=== PATIENT | female | born 2000 | race Two or more races ===

== ENCOUNTER 2024-04-10 15:17 | Observation (INO) | payer MEDICAID, SELFPAY ==
[2024-04-10 15:20] VITALS: BP 168/77; PULSE 82; RESP 16; RESP 98; TEMP 36.8; BMI 54.1
[2024-04-10 15:24] VITALS: BP 175/79; PULSE 85
[2024-04-10 15:39] VITALS: BP 175/79; PULSE 85
[2024-04-10] MEDS: NIFEdipine 10 MG CAPSULE PO (15:39)
[2024-04-10 15:58] LABS: Collection Type, Urine Clean Catch
[2024-04-10 16:01] LABS: Basophils % (Auto) 0 % (0-2.5); Eosinophils # (Auto) 0.1 Thou/mm3 (0.0-0.5); Eosinophils % (Auto) 1 % (0-10); Hematocrit 31.7 % (36.0-46.0); Hemoglobin 10.3 g/dL (12.0-16.0); Immature Granulocytes % (Auto) 1 % (0-0); Immature Granulocytes Auto 0.07 Thou/mm3 (0.00-0.00); Lymphocytes % (Auto) 20 % (10-50); Mean Corpuscular HGB Conc 32.5 g/dl (31.0-37.0); Mean Corpuscular Hemoglobin 26.4 pg (25.0-35.0); Mean Corpuscular Volume 81 fL (80-100); Monocytes # (Auto) 0.7 Thou/mm3 (0.0-0.8); Monocytes % (Auto) 7 % (0-12); Neutrophils # (Auto) 7.1 Thou/mm3 (1.8-7.7); Neutrophils % (Auto) 71 % (37-80); Nucleated Red Blood Cell % 0 /100 WBC (0); Platelet Count 251 Thou/mm3 (140-440); RDW Standard Deviation 43.8 fL (36.4-46.3); White Blood Count 9.9 Thou/mm3 (3.6-11.0)
[2024-04-10 16:03] LABS: Bilirubin,Urine Negative (Negative); Blood,Urine Negative (Negative); Clarity,Urine Clear (Clear/Hazy); Color,Urine Lt-Yellow (Lt Yel-Yel); Glucose, Urine Negative (Negative); Ketones,Urine Negative (Negative); Leukocyte Esterase,Urine Negative (Negative); Nitrite,Urine Negative (Negative); PH,Urine 6.5 (5.0-7.0); Protein,Urine Negative (Neg - Trace); RBC,Urine < 1 /hpf (0-3); Specific Gravity,Urine 1.008 (1.001-1.035); Squamous Epithelial Cell,Urine 1 /hpf (0-5); Urobilinogen,Urine Negative mg/dL (0.0-1.0); WBC,Urine 1 /hpf (0-5)
[2024-04-10 16:08] VITALS: BP 146/89; PULSE 107
[2024-04-10 16:21] LABS: Partial Thromboplastin Time 31.3 Seconds (22.0-36.0); Prothrombin Time 10.9 Seconds (9.0-12.2)
[2024-04-10 16:25] LABS: Fibrinogen 689 mg/dL (175-375)
[2024-04-10 16:32] LABS: Alanine Aminotransferase 11 U/L (10-49); Albumin, Serum 3.9 gm/dL (3.5-5.0); Albumin/Globulin Ratio 1.4 (1.2-2.2); Alkaline Phosphatase 128 U/L (46-116); Anion Gap 8 (7-16); Aspartate Amino Transferase < 10 U/L (0-34); BUN/Creatinine Ratio 10 Ratio (12-20); Bilirubin,Total 0.2 mg/dL (0.3-1.2); Blood Urea Nitrogen 7 mg/dL (9-23); Calcium 9.1 mg/dL (8.3-10.6); Calcium (Corrected) 9.2 mg/dL (8.5-10.1); Carbon Dioxide 22.3 mMol/L (20.0-31.0); Chloride 107 mMol/L (98-107); Creatinine (Component) 0.7 mg/dL (0.6-1.3); Estimated Creatinine Clearance 180.6 mL/min (>60); Globulin 2.8 gm/dL (2.3-3.5); Glucose 87 mg/dL (74-106); LDH (Lactate Dehydrogenase) 177 U/L (120-246); Osmolality,Calculated 270 (275-295); Sodium 137 mMol/L (136-145); Total Protein 6.7 gm/dL (5.7-8.2); Uric Acid 4.7 mg/dL (3.1-7.8); eGFR > 60 See Note
[2024-04-10 16:38] VITALS: BP 149/79; PULSE 90
[2024-04-10 16:43] VITALS: BP 145/86; PULSE 89
== END 2024-04-10 17:00 | disposition home or self-care (01) ==
PROVIDERS: Admitting Provider Obstetrics & Gynecology; Visit Provider Obstetrics & Gynecology
DX: O26.893 Other specified pregnancy related conditions, third trimester (principal); R03.0 Elevated blood-pressure reading, without diagnosis of hypertension; Z3A.33 33 weeks gestation of pregnancy
CPT/HCPCS: 36415; 59899; 80053; 81001; 83615; 84550; 85025; 85384; 85610; 85730; A9270

== ENCOUNTER 2024-04-11 18:23 | Outpatient (CLI) | payer MEDICAID, SELFPAY ==
[2024-04-11 18:38] VITALS: BP 129/66; PULSE 100
[2024-04-11 18:51] VITALS: BP 129/66; PULSE 100; RESP 18; TEMP 37
[2024-04-11 18:53] VITALS: BP 126/98; PULSE 98
[2024-04-11 18:54] VITALS: BMI 58.3
[2024-04-11 19:08] VITALS: BP 139/80; PULSE 88
[2024-04-11 19:23] VITALS: BP 148/84
[2024-04-11 19:35] VITALS: BP 149/84; PULSE 88
[2024-04-11] MEDS: NIFEdipine XL 30 MG TABCR PO (19:35)
[2024-04-11 20:07] LABS: Protein Total, Urine 9 mg/dL (1-14)
[2024-04-11 20:08] LABS: Protein Total, 24 hr Urine 253 mg/24hr (<149); Protein Total, Urine Volume 2810 mL/24hr (600-1800)
== END 2024-04-11 19:43 | disposition home or self-care (01) ==
LOC: SERX 18:28 → S4SX 18:31
PROVIDERS: Referring Provider Obstetrics & Gynecology; Visit Provider Obstetrics & Gynecology
DX: Z34.03 Encounter for supervision of normal first pregnancy, third trimester (principal); Z36.89 Encounter for other specified antenatal screening; Z3A.33 33 weeks gestation of pregnancy
CPT/HCPCS: 84156; A9270

== ENCOUNTER 2024-04-25 20:01 | Observation (INO) | payer MEDICAID, SELFPAY ==
[2024-04-25] VITALS (26 sets, daily range): BP systolic 103–171; BP diastolic 51–102; PULSE 73–100; RESP 16–99; TEMP 36.7–36.9; BMI 58.3
[2024-04-25 17:44] LABS: Collection Type, Urine Clean Catch
[2024-04-25 17:52] LABS: Basophils % (Auto) 0 % (0-2.5); Eosinophils # (Auto) 0.1 Thou/mm3 (0.0-0.5); Eosinophils % (Auto) 1 % (0-10); Hematocrit 31.3 % (36.0-46.0); Hemoglobin 10.3 g/dL (12.0-16.0); Immature Granulocytes % (Auto) 1 % (0-0); Immature Granulocytes Auto 0.06 Thou/mm3 (0.00-0.00); Lymphocytes # (Auto) 2.1 Thou/mm3 (1.0-4.8); Lymphocytes % (Auto) 24 % (10-50); Mean Corpuscular HGB Conc 32.9 g/dl (31.0-37.0); Mean Corpuscular Hemoglobin 26.3 pg (25.0-35.0); Mean Corpuscular Volume 80 fL (80-100); Monocytes # (Auto) 0.7 Thou/mm3 (0.0-0.8); Monocytes % (Auto) 8 % (0-12); Neutrophils # (Auto) 5.8 Thou/mm3 (1.8-7.7); Neutrophils % (Auto) 66 % (37-80); Nucleated Red Blood Cell % 0 /100 WBC (0); Platelet Count 242 Thou/mm3 (140-440); RDW Standard Deviation 44.3 fL (36.4-46.3); Red Blood Count 3.92 Miln/mm3 (4.00-5.20); White Blood Count 8.8 Thou/mm3 (3.6-11.0)
[2024-04-25 17:52] LABS: Bilirubin,Urine Negative (Negative); Blood,Urine Negative (Negative); Clarity,Urine Clear (Clear/Hazy); Color,Urine Lt-Yellow (Lt Yel-Yel); Glucose, Urine Negative (Negative); Ketones,Urine Negative (Negative); Leukocyte Esterase,Urine Negative (Negative); Nitrite,Urine Negative (Negative); PH,Urine 6.5 (5.0-7.0); Protein,Urine Negative (Neg - Trace); RBC,Urine 2 /hpf (0-3); Specific Gravity,Urine 1.006 (1.001-1.035); Squamous Epithelial Cell,Urine 2 /hpf (0-5); Urobilinogen,Urine Negative mg/dL (0.0-1.0); WBC,Urine 1 /hpf (0-5)
[2024-04-25 18:24] LABS: Alanine Aminotransferase 9 U/L (10-49); Albumin, Serum 3.9 gm/dL (3.5-5.0); Albumin/Globulin Ratio 1.3 (1.2-2.2); Alkaline Phosphatase 144 U/L (46-116); Anion Gap 7 (7-16); Aspartate Amino Transferase 11 U/L (0-34); BUN/Creatinine Ratio 12 Ratio (12-20); Bilirubin,Total 0.3 mg/dL (0.3-1.2); Blood Urea Nitrogen 6 mg/dL (9-23); Calcium 9.1 mg/dL (8.3-10.6); Calcium (Corrected) 9.2 mg/dL (8.5-10.1); Carbon Dioxide 23.9 mMol/L (20.0-31.0); Chloride 107 mMol/L (98-107); Creatinine (Component) 0.5 mg/dL (0.6-1.3); Globulin 2.9 gm/dL (2.3-3.5); Glucose 79 mg/dL (74-106); LDH (Lactate Dehydrogenase) 174 U/L (120-246); Osmolality,Calculated 272 (275-295); Potassium 3.9 mMol/L (3.4-5.1); Sodium 138 mMol/L (136-145); Total Protein 6.8 gm/dL (5.7-8.2); Uric Acid 4.8 mg/dL (3.1-7.8); eGFR > 60 See Note
[2024-04-25 19:27] LABS: Creatinine,Random Urine 40 mg/dL (30-125); Protein Total, Random Urine 7 mg/dL (1-14)
[2024-04-25] MEDS: ACETAMINOPHEN 325 MG TABLET 650 MG PO (19:32)
[2024-04-25] MEDS: LABETALOL 100 MG TABLET 400 MG PO (19:48)
--- NOTE | 2024-04-25 20:09 | PD.LDANTE ---
Documentation for date of: 04/25/24 OB Labor/Induct. HPI History of Present Illness : 1 FIONA: 05/26/24 Gestational Age (weeks): 35 Gestational Age (days): 4 History of present illness: Patient presents for NST and BPP, as routine monitoring for diagnosis of CHTN, as ordered by her OBGYN. She takes ASA 81mg PO QD and Nifedipine 60mg PO Qam and took her dose this morning. On presentation she has a slight headache and bp's are mild range to occasional (non-persistent) severe range. She denies vision changes and RUQ pain. She notes normal movement. No vaginal bleeding, ctx or loss of fluid. History of Present Adequate Care: Yes Obstetrical complications: other (CHTN) Narrative: PNC significant for CHTN (on Nifedipine 60mg PO Qam and ASA 81mg PO QD), obesity and anemia Review of Systems Review of Systems Systems Reviewed: All systems reviewed, normal except as documented Constitutional Constitutional: Reports headache(s) Eyes Eyes: Denies loss of vision ENT Ears, Nose, Mouth, and Throat: Reports headache(s) and Denies vertigo Gastrointestinal Gastrointestinal: Denies abdominal pain Neurologic Neurologic: Reports headache(s), Denies loss of vision, Denies other visual disturbances, Denies seizure-like activity and Denies vertigo Past Medical History Past Medical History CARDIAC: Positive Hypertension GASTROINTESTINAL: Positive Obesity Social History SOCIAL: Support person present. No ETOH, illicit drug use or tobacco Meds Home Medications and Allergies Home Medications ?Medication ?Instructions ?Recorded ?Confirmed ?Type aspirin 81 mg capsule 81 mg PO QDAY 04/10/24 04/11/24 History vitamin-ferrous sulfate 1 tab PO QDAY 04/10/24 04/11/24 History 27 mg iron-folic acid 0.8 mg tablet Allergies Allergy/AdvReac Type Severity Reaction Status Date / Time No Known Allergies Allergy Verified 04/11/24 18:58 OB Exam Physical Exam Vital signs: Pulse BP 73 159/72 H 04/25/24 19:59 04/25/24 19:59 Narrative: General: well developed, well nourished, no acute distress, conversant Cardiac: normal heart rate Lungs: breathing without distress Abdomen: soft, gravid, non-tender, no rebound or guarding Extremities: no BLE edema Detailed Labor and Delivery Exam Membranes: intact monitor accelerations: 15x15 monitor decelerations: None superintendent terminal variability: Moderate (11-25) Contraction frequency (min): none Additional findings Additional findings: Examination: Biophysical profile, ultrasound Date and time of exam: April 25, 2024 1443 hours INDICATIONS: Diagnosis -induced hypertension, pelvic cramping beginning one week ago Technique: Multiple transabdominal sonographic images of the pelvis abdomen obtained. Attention is directed to the breathing movement, gross body movement, amniotic fluid volume and tone. Findings: Amniotic fluid index 11.7 cm Total biophysical profile is 8 of 8. breathing movement is 2. Gross body movement is 2. tone is 2. Qualitative amniotic fluid volume is 2 Impression: Biophysical profile is 8 of 8. OB Results Labs 04/25/24 17:20 04/25/24 17:20 Labs: Short CBC 04/25/24 Range/Units 17:20 WBC 8.8 (3.6-11.0) Thou/mm3 Hgb 10.3 L (12.0-16.0) g/dL Hct 31.3 L (36.0-46.0) % Plt Count 242 (140-440) Thou/mm3 BMP 04/25/24 17:20 Sodium 138 Potassium 3.9 Chloride 107 Carbon Dioxide 23.9 BUN 6 L Creatinine 0.5 L Glucose 79 Calcium 9.1 Liver Function 04/25/24 Range/Units 17:20 Total Bilirubin 0.3 (0.3-1.2) mg/dL AST 11 (0-34) U/L ALT 9 L (10-49) U/L Alkaline Phosphatase 144 H (46-116) U/L Albumin 3.9 (3.5-5.0) gm/dL Urine 04/25/24 Range/Units 16:55 Urine Color Lt-Yellow (Lt Yel-Yel) Urine Clarity Clear (Clear/Hazy) Urine pH 6.5 (5.0-7.0) Ur Specific [place] 1.006 (1.001-1.035) Urine Protein Negative (Neg - Trace) Urine Glucose (UA) Negative (Negative) OB Assessment & Plan Assessment and Plan (1) Hypertension affecting : Status: Acute (2) Obesity affecting : Status: Acute (3) Anemia affecting : Status: Acute Additional Plan Additional Plan Comment: Sada tariq 23yo with SIUP at 35+wk with PNC significant for CHTN (on nifedipine 60mg PO Qam and ASA 81mg PO QD), obesity and anemia presenting to triage for scheduled NST/BPP for routine antepartum testing. She has had mostly high mild range bp's with occasional (non-sustatined) severe range bp's on observation over several hours. She also has mild headache, improving after tylenol. PIH labs are normal with exception of Hgb consistent with known anemia (plt/creat/LFTs wnl, urine prot:creat is 0.175). Reassuring assessment with reactive NST and BPP 01/25. Benign exam. Plan: -Will initiate labetalol 400mg PO BID in addition to current nifedipine 60mg PO Qam regimen and observe bp's overnight -Will ensure headache fully resolves -Regular diet with PO hydration -NST q4hr -If patient's bp's are better managed by the morning, anticipate discharge home with close follow up in clinic -Plan fully discussed with patient and her partner, they are amenable Dr. Castro (1) Hypertension affecting Qualifiers: Trimester: third trimester Qualified Code(s): O16.3 - Unspecified maternal hypertension, third trimester (2) Obesity affecting Qualifiers: Trimester: third trimester Obesity type affecting : other obesity due to excess calories Qualified Code(s): O99.213 - Obesity complicating , third trimester; E66.09 - Other obesity due to excess calories (3) Anemia affecting Qualifiers: Trimester: third trimester Qualified Code(s): O99.013 - Anemia complicating , third trimester
[2024-04-26] VITALS (34 sets, daily range): BP systolic 93–186; BP diastolic 44–77; PULSE 78–109; RESP 16–18; TEMP 36.7–36.9; O2SAT 99
--- NOTE | 2024-04-26 09:38 | PD.LDPN ---
Documentation for date of: 04/26/24 OB Labor Progress Note Contractions Contraction frequency: none Status status: Category l Assessment and Plan Comments: Observation Note Nabila is doing well. She denies any BLAKE, vision changes and RUQ pain. She notes no ctx, no lof, no vaginal bleeding. She received labetalol 400mg PO last night and overnight blood pressures have vacillated with range of 93-186/44-77. Mostly normotensive to mild range. Cuff supposedly positioned correctly (and not lying on it) when she had the isolated severe range bp. ROS negative other than what was described above. BP's described above, afebrile General: well developed, well nourished, no acute distress, conversant Cardiac: normal heart rate Lungs: breathing without distress Abdomen: soft, gravid, non-tender, no rebound or guarding Extremities: no BLE Nabila is a 23yo with SIUP at 35+wk with PNC significant for CHTN (on nifedipine 60mg PO Qam and ASA 81mg PO QD), obesity and anemia presenting to triage for scheduled NST/BPP for routine antepartum testing. Labile blood pressures. She also had mild headache, improved after tylenol. PIH labs were normal with exception of Hgb consistent with known anemia (plt/creat/LFTs wnl, urine prot:creat is 0.175). Reassuring assessment with reactive NST and BPP 10/10. Benign exam. Plan: -Given that labetalol 400mg PO last night made mostly normotensive to mild range bp's overnight (with a few low normal bp's), will give 400mg labetalol this morning for trial of BID dosing and hold off on home nifedipine to see how bp's respond -Regular diet with PO hydration -NST q4hr -If patient's bp's are better managed by this afternoon, anticipate discharge home with close follow up in clinic -Plan fully discussed with patient and nursing Terri Castro MD
[2024-04-26] MEDS: LABETALOL 100 MG TABLET 400 MG PO (09:40)
--- NOTE | 2024-04-26 15:49 | PD.LDDS ---
DS: Providers Provider Date of admission: 04/25/24 20:01 Primary care physician: Physician No Primary/Family Admitting Provider: Terri Castro MD Attending Provider on Admission: Terri Castro MD Attending Provider on DC: Terri Castro MD Discharging Provider: Terri Castro MD DS: Diagnosis Discharge Diagnosis (1) Anemia affecting : Status: Acute (2) Obesity affecting : Status: Acute (3) Hypertension affecting : Status: Acute Problem List Completed Was Problem List Reviewed/Reconciled?: Yes Summary/Hosp Course Brief History: Nabila is a 23yo with SIUP at 35+wk with PNC significant for CHTN (on nifedipine 60mg PO Qam and ASA 81mg PO QD), obesity and anemia presenting to triage for scheduled NST/BPP for routine antepartum testing. Labile blood pressures with some in severe range (non-sustained). She also had mild headache, improved after tylenol. PIH labs were normal with exception of Hgb consistent with known anemia (plt/creat/LFTs wnl, urine prot:creat is 0.175). Reassuring assessment with reactive NST and BPP 10/10. Benign exam. She was kept overnight after initiating labetalol 400mg PO BID. Some blood pressures were then on the low side of normal, so nifedipine was discontinued in the morning and blood pressures became mild range, so the labetalol 400mg PO was then given which resulted in perfectly normal blood pressures for the rest of the morning/afternoon. Will discharge patient on labetalol 400mg PO BID and discontinue nifedipine. Continue aspirin. Status at Discharge Functional status at discharge: independent ambulation Overall status at discharge: patient is back to baseline Time Spent with Patient Time attestation: Total time spent providing and/or coordinating discharge services: Exam Vital Signs Temp Pulse Resp BP Pulse Ox O2 Del Method 98.2 F 96 18 123/58 L 99 Room Air 04/26/24 15:29 04/26/24 15:29 04/26/24 15:29 04/26/24 15:29 04/26/24 15:29 04/25/24 20:37 Narrative Exam General: well developed, well nourished, no acute distress, conversant Cardiac: normal heart rate Lungs: breathing without distress Abdomen: soft, gravid, non-tender, no rebound or guarding Extremities: no BLE Discharge Plan Plan Patient Disposition: HOME (Self Care) Patient condition on transfer: Stable Health Concerns: Pre-existing hypertension in , third trimester Prescriptions/Referrals Prescriptions/Med Rec: New labetalol 200 mg tablet 400 mg PO BID Qty: 120 0RF Continued vit-ferrous sulfat-FA 27 mg iron- 0.8 mg Tablet 1 tab PO QDAY aspirin 81 mg Capsule 81 mg PO QDAY Discontinued nifedipine 60 mg tablet extended release 60 mg PO QDAY 30 Days Qty: 30 1RF Referrals: No Primary/Family,Physician [Primary Care Provider] - Patient/Caregiver Discharge Instructions Discharge Activity: activity as tolerated Other Discharge Activity Instructions:: No strenuous activity Other Discharge Diet Instructions: Regular diet Print Language: Indonesian Stand Alone Forms: Liz Award Info., Patient Portal Info Letter, Work/Release Restrictions Discharge Order Discharge Orders: Discharge (Routine); Ordered 04/26/24 Ordered By: Terri Castro Planned Discharge Date 04/26/24 (1) Anemia affecting Qualifiers: Trimester: third trimester Qualified Code(s): O99.013 - Anemia complicating , third trimester (2) Obesity affecting Qualifiers: Trimester: third trimester Obesity type affecting : other obesity due to excess calories Qualified Code(s): O99.213 - Obesity complicating , third trimester; E66.09 - Other obesity due to excess calories (3) Hypertension affecting Qualifiers: Trimester: third trimester Qualified Code(s): O16.3 - Unspecified maternal hypertension, third trimester
--- NOTE | 2024-04-26 16:07 | PC.NURSE ---
Patient discharged home with sister. Leonidas WNL. NST reviewed by provider. Patient denies any preeclampsia symptoms at this time. Patient educated on new home medication, discharge instructions reviewed with patient including precautions and reasons to return. Patient verbalizes understanding, all questions answered and encouraged. Patient instructed to follow up with hospital for next NST on Tuesday 05/02.
== END 2024-04-26 16:06 | disposition home or self-care (01) ==
LOC: S4S1 20:18 → S4SX 20:26
PROVIDERS: Admitting Provider Obstetrics & Gynecology; Referring Provider Obstetrics & Gynecology; Visit Provider Obstetrics & Gynecology
DX: O16.3 Unspecified maternal hypertension, third trimester (principal); Z3A.35 35 weeks gestation of pregnancy; O99.213 Obesity complicating pregnancy, third trimester; E66.9 Obesity, unspecified; O99.013 Anemia complicating pregnancy, third trimester; D64.9 Anemia, unspecified
CPT/HCPCS: 36415; 59025; 59899; 80053; 81001; 82570; 83615; 84156; 84550; 85025; A9270

== ENCOUNTER 2024-05-14 17:23 | Outpatient (CLI) | payer MEDICAID, SELFPAY ==
[2024-05-14 17:46] VITALS: BP 138/80; PULSE 112
[2024-05-14 17:54] VITALS: BP 138/80; RESP 100; RESP 18; TEMP 36.8
[2024-05-14 18:20] VITALS: BMI 60.2
--- NOTE | 2024-05-14 18:33 | XR_ITS ---
Examination: Biophysical profile, ultrasound Date and time of exam: May 14, 2024 1840 hours INDICATIONS: Diagnosis elevated BMI, decreased movement x3 days Technique: Multiple transabdominal sonographic images of the pelvis abdomen obtained. Attention is directed to the breathing movement, gross body movement, amniotic fluid volume and tone. Findings: Amniotic fluid index 10.2 cm Total biophysical profile is 8 of 8. breathing movement is 2. Gross body movement is 2. tone is 2. Qualitative amniotic fluid volume is 2 Impression: Biophysical profile is 8 of 8.
== END 2024-05-14 20:10 | disposition home or self-care (01) ==
LOC: S4S1 17:27 → S4SX 17:28
PROVIDERS: Referring Provider Obstetrics & Gynecology; Visit Provider Obstetrics & Gynecology
DX: O36.8130 Decreased fetal movements, third trimester, not applicable or unspecified (principal); Z3A.38 38 weeks gestation of pregnancy
CPT/HCPCS: 59025; 76819

== ENCOUNTER 2024-05-16 14:23 | Outpatient (RCR) | payer MEDICAID, SELFPAY ==
--- NOTE | 2024-04-04 14:42 | XR_ITS ---
Examination: Biophysical profile, ultrasound Date and time of exam: April 04, 2024 1449 hours INDICATIONS: -induced hypertension, epigastric pain 3 days Technique: Multiple transabdominal sonographic images of the pelvis abdomen obtained. Attention is directed to the breathing movement, gross body movement, amniotic fluid volume and tone. Findings: Amniotic fluid index 10.0 cm Total biophysical profile is 8 of 8. breathing movement is 2. Gross body movement is 2. tone is 2. Qualitative amniotic fluid volume is 2 Impression: Biophysical profile is 8 of 8.
[2024-04-04 15:33] VITALS: BP 131/73; PULSE 97; RESP 16; TEMP 36.7
--- NOTE | 2024-04-10 14:04 | XR_ITS ---
Examination: Biophysical profile, ultrasound Date and time of exam: April 10, 2024 1410 hrs. Indications: -induced hypertension Technique: Multiple transabdominal sonographic images of the pelvis abdomen obtained. Attention is directed to the breathing movement, gross body movement, amniotic fluid volume and tone. Findings: Amniotic fluid index 9.1 cm Total biophysical profile is 8 of 8. breathing movement is 2. Gross body movement is 2. tone is 2. Qualitative amniotic fluid volume is 2 Impression: Biophysical profile is 8 of 8.
[2024-04-10 15:13] VITALS: BP 182/85; PULSE 82; RESP 16; TEMP 36.8
--- NOTE | 2024-04-17 14:23 | XR_ITS ---
Examination: Biophysical profile, ultrasound Date and time of exam: April 17, 2024 1424 hrs. Indications: Pelvic pressure onset beginning 4 days ago Technique: Multiple transabdominal sonographic images of the pelvis abdomen obtained. Attention is directed to the breathing movement, gross body movement, amniotic fluid volume and tone. Findings: Amniotic fluid index 11.9 cm Total biophysical profile is 8 of 8. breathing movement is 2. Gross body movement is 2. tone is 2. Qualitative amniotic fluid volume is 2 Impression: Biophysical profile is 8 of 8.
[2024-04-17 14:52] VITALS: BP 132/59; PULSE 82; RESP 18; TEMP 36.9
--- NOTE | 2024-04-25 14:37 | XR_ITS ---
Examination: Biophysical profile, ultrasound Date and time of exam: April 25, 2024 1443 hours INDICATIONS: Diagnosis -induced hypertension, pelvic cramping beginning one week ago Technique: Multiple transabdominal sonographic images of the pelvis abdomen obtained. Attention is directed to the breathing movement, gross body movement, amniotic fluid volume and tone. Findings: Amniotic fluid index 11.7 cm Total biophysical profile is 8 of 8. breathing movement is 2. Gross body movement is 2. tone is 2. Qualitative amniotic fluid volume is 2 Impression: Biophysical profile is 8 of 8.
[2024-04-25 15:17] VITALS: BP 144/65; PULSE 94; RESP 17; TEMP 36.6
--- NOTE | 2024-05-02 14:35 | XR_ITS ---
Examination: Biophysical profile, ultrasound Date and time of exam: May 02, 2024 1451 hours INDICATIONS: Diagnosis -induced hypertension Technique: Multiple transabdominal sonographic images of the pelvis abdomen obtained. Attention is directed to the breathing movement, gross body movement, amniotic fluid volume and tone. Findings: Amniotic fluid index 7.6 cm Total biophysical profile is 8 of 8. breathing movement is 2. Gross body movement is 2. tone is 2. Qualitative amniotic fluid volume is 2 Impression: Biophysical profile is 8 of 8.
[2024-05-02 15:54] VITALS: BP 136/69; PULSE 121; RESP 18; TEMP 36.9
--- NOTE | 2024-05-09 14:21 | XR_ITS ---
Examination: Biophysical profile, ultrasound Date and time of exam: May 09, 2024 1423 hours INDICATIONS: Diagnosis -induced hypertension Technique: Multiple transabdominal sonographic images of the pelvis abdomen obtained. Attention is directed to the breathing movement, gross body movement, amniotic fluid volume and tone. Findings: Amniotic fluid index 8.2 cm Total biophysical profile is 8 of 8. breathing movement is 2. Gross body movement is 2. tone is 2. Qualitative amniotic fluid volume is 2 Impression: Biophysical profile is 8 of 8.
[2024-05-09 16:08] VITALS: BP 136/63; PULSE 97; RESP 18; TEMP 36.8
--- NOTE | 2024-05-16 14:31 | XR_ITS ---
Examination: Biophysical profile, ultrasound Date and time of exam: May 16, 2024 1435 hours INDICATIONS: Diagnosis -induced hypertension, diagnosis decreased movement this week Technique: Multiple transabdominal sonographic images of the pelvis abdomen obtained. Attention is directed to the breathing movement, gross body movement, amniotic fluid volume and tone. Findings: Amniotic fluid index 6.9 cm Total biophysical profile is 8 of 8. breathing movement is 2. Gross body movement is 2. tone is 2. Qualitative amniotic fluid volume is 2 Impression: Biophysical profile is 8 of 8.
[2024-05-16 15:50] VITALS: BP 154/70; PULSE 99; RESP 16; TEMP 36.8
== END 2024-05-16 23:59 | disposition home or self-care (01) ==
LOC: S4S1 14:23
PROVIDERS: Referring Provider Obstetrics & Gynecology; Visit Provider Obstetrics & Gynecology
DX: O10.013 Pre-existing essential hypertension complicating pregnancy, third trimester (principal); Z3A.38 38 weeks gestation of pregnancy
CPT/HCPCS: 59025; 76819; J2795; J3010

== ENCOUNTER 2024-05-19 11:42 | Inpatient (IN) | payer MEDICAID, SELFPAY ==
[2024-05-19] VITALS (108 sets, daily range): BP systolic 117–142; BP diastolic 60–82; PULSE 79–138; RESP 16–20; TEMP 36.9; O2SAT 90–100; BMI 58.3
[2024-05-19 14:18] LABS: Amphetamine/Metham Scrn,Ur OB Negative (Negative); Benzoylecgonine Screen, Ur OB Negative (Negative); Creatinine,Random Urine 146 mg/dL (30-125); Opiate Screen,Urine OB Negative (Negative); Protein Total, Random Urine 36 mg/dL (1-14); THC Screen,Urine OB Negative (Negative)
[2024-05-19 14:27] LABS: Basophils % (Auto) 0 % (0-2.5); Eosinophils # (Auto) 0.1 Thou/mm3 (0.0-0.5); Eosinophils % (Auto) 1 % (0-10); Hematocrit 34.1 % (36.0-46.0); Immature Granulocytes % (Auto) 1 % (0-0); Immature Granulocytes Auto 0.05 Thou/mm3 (0.00-0.00); Lymphocytes # (Auto) 1.9 Thou/mm3 (1.0-4.8); Lymphocytes % (Auto) 20 % (10-50); Mean Corpuscular HGB Conc 32.3 g/dl (31.0-37.0); Mean Corpuscular Hemoglobin 25.7 pg (25.0-35.0); Mean Corpuscular Volume 80 fL (80-100); Monocytes # (Auto) 0.5 Thou/mm3 (0.0-0.8); Monocytes % (Auto) 5 % (0-12); Neutrophils % (Auto) 74 % (37-80); Nucleated Red Blood Cell % 0 /100 WBC (0); Platelet Count 275 Thou/mm3 (140-440); RDW Standard Deviation 44.7 fL (36.4-46.3); Red Blood Count 4.28 Miln/mm3 (4.00-5.20); White Blood Count 9.4 Thou/mm3 (3.6-11.0)
[2024-05-19 14:46] LABS: Partial Thromboplastin Time 30.5 Seconds (22.0-36.0); Prothrombin Time 10.8 Seconds (9.0-12.2)
[2024-05-19 14:49] LABS: Fibrinogen 755 mg/dL (175-375)
--- NOTE | 2024-05-19 14:59 | XR_ITS ---
Examination: age Limited Technique: Limited transabdominal sonographic images pelvis Exam date and time: May 19, 2024 1511 hrs. Indications: Labor induction today, unknown weight unknown presentation Findings: Viable intrauterine gestation cephalic presentation spine maternal left Cardiac motion 173 BPM Estimated weight 3882.7 g Estimated gestational age 39 weeks 6 days Impression: Viable intrauterine gestation cephalic presentation
[2024-05-19 15:01] LABS: Alanine Aminotransferase 9 U/L (10-49); Albumin/Globulin Ratio 1.3 (1.2-2.2); Alkaline Phosphatase 180 U/L (46-116); Anion Gap 11 (7-16); Aspartate Amino Transferase 13 U/L (0-34); BUN/Creatinine Ratio 11 Ratio (12-20); Bilirubin,Total 0.3 mg/dL (0.3-1.2); Blood Urea Nitrogen 9 mg/dL (9-23); Calcium 9.7 mg/dL (8.3-10.6); Calcium (Corrected) 9.7 mg/dL (8.5-10.1); Carbon Dioxide 23.9 mMol/L (20.0-31.0); Chloride 104 mMol/L (98-107); Creatinine (Component) 0.8 mg/dL (0.6-1.3); Estimated Creatinine Clearance 270.8 mL/min (>60); Globulin 3.2 gm/dL (2.3-3.5); Glucose 101 mg/dL (74-106); Osmolality,Calculated 276 (275-295); Sodium 139 mMol/L (136-145); Total Protein 7.2 gm/dL (5.7-8.2); Uric Acid 5.7 mg/dL (3.1-7.8); eGFR > 60 See Note
[2024-05-19 15:07] LABS: Syphilis Nonreactive (Nonreactive)
[2024-05-19] MEDS: DINOPROSTONE 10 MG VAG.SUPP VAGINAL (15:58)
--- NOTE | 2024-05-19 19:11 | PD.LDHP ---
Documentation for date of: 05/19/24 OB Labor/Induct. HPI History of Present Illness : 1 Para: 0 Date of last menstrual period: 08/20/23 FIONA: 05/26/24 Gestational Age (weeks): 39 Gestational Age (days): 0 Gestational age based on last menstrual period: 39 Indication for induction: medical complication (CHTN in the setting of severe obesity BMI >50) History of present illness: Patient presents for scheduled IOL for CHTN in the setting of severe obesity BMI >50. She has no regular/painful ctx. No LOF, no vaginal bleeding. Feels normal movement. History of Present Dating criteria: LMP confirmed by 1st trimester US Adequate Care: Yes Narrative: G1 current. Complicated by CHTN on ASA 81mg QD and Nifedipine 60mg PO QD in the setting of severe obesity BMI >50. Early 24hr UP: 99mg. Pre-diabetes but glucose testing normal in and A1c 5.5. Labs Labs: Negative: Hepatitis B, HIV, Chlamydia, Gonorrhea and Group Beta Strep Review of Systems Review of Systems Narrative Review of Systems: Review of Systems Systems Reviewed: All systems reviewed, normal except as documented Constitutional Constitutional: Denies body ache(s), Denies chills, Denies fever(s) and Denies headache(s) ENT Ears, Nose, Mouth, and Throat: Denies headache(s) and Denies vertigo Cardiovascular Cardiovascular: Denies chest pain, Denies palpitations, Denies dyspnea and Denies syncope Respiratory Respiratory: Denies cough, Denies dyspnea Gastrointestinal Gastrointestinal: Denies nausea and Denies vomiting Neurologic Neurologic: Denies convulsions, Denies headache(s), Denies other visual disturbances, Denies syncope and Denies vertigo Past Medical History Family History OTHER FAMILY HX: Diabetes in grandparents Surgical History OTHER SURGICAL HX: denies Social History SOCIAL: THC positive early . No ETOH or illicit drug use. No tobacco. Past Medical History Comments PMH COMMENT: Severe obesity, BMI >50 Prediabetes, starting HgbA1c 5.5 Hyperlipidemia Fatty liver disease Mild intermittent asthma Anxiety/depression on zoloft prior to Seasonal allergies Meds Home Medications and Allergies Home Medications ?Medication ?Instructions ?Recorded ?Confirmed ?Type aspirin 81 mg capsule 81 mg PO QDAY 04/10/24 05/19/24 History vitamin-ferrous sulfate 1 tab PO QDAY 04/10/24 05/19/24 History 27 mg iron-folic acid 0.8 mg tablet nifedipine 60 mg tablet,extended mg PO QDAY 05/14/24 History release 24 hr (Procardia XL) Allergies Allergy/AdvReac Type Severity Reaction Status Date / Time No Known Allergies Allergy Verified 05/19/24 12:30 OB Exam Physical Exam Vital signs: Temp Pulse Resp BP Pulse Ox 98.5 F 86 20 132/76 H 97 05/19/24 12:26 05/19/24 18:20 05/19/24 12:26 05/19/24 18:20 05/19/24 19:07 Narrative: General: well developed, well nourished, no acute distress, conversant Cardiac: normal heart rate Lungs: breathing without distress Abdomen: obese, soft, gravid, non-tender, no rebound or guarding Extremities: trace edema BLE Detailed Labor and Delivery Exam Dilation (cm): closed Effacement (%): 0 Cervix position: posterior station: -3 Presentation: Vertex Membranes: intact monitor accelerations: 15x15 monitor decelerations: None half-way variability: Moderate (11-25) Contraction frequency (min): rare OB Results Labs 05/19/24 12:30 05/19/24 13:56 Labs: Short CBC 05/19/24 Range/Units 12:30 WBC 9.4 (3.6-11.0) Thou/mm3 Hgb 11.0 L (12.0-16.0) g/dL Hct 34.1 L (36.0-46.0) % Plt Count 275 D (140-440) Thou/mm3 BMP 05/19/24 13:56 Sodium 139 Potassium 4.0 Chloride 104 Carbon Dioxide 23.9 BUN 9 Creatinine 0.8 Glucose 101 Calcium 9.7 Liver Function 05/19/24 Range/Units 13:56 Total Bilirubin 0.3 (0.3-1.2) mg/dL AST 13 (0-34) U/L ALT 9 L (10-49) U/L Alkaline Phosphatase 180 H (46-116) U/L Albumin 4.0 (3.5-5.0) gm/dL Impressions Impression: Examination: age Limited Technique: Limited transabdominal sonographic images pelvis Exam date and time: May 19, 2024 1511 hrs. Indications: Labor induction today, unknown weight unknown presentation Findings: Viable intrauterine gestation cephalic presentation spine maternal left Cardiac motion 173 BPM Estimated weight 3882.7 g Estimated gestational age 39 weeks 6 days Impression: Viable intrauterine gestation cephalic presentation OB Assessment & Plan Assessment and Plan (1) Hypertension affecting : Status: Acute Assessment and plan: Nabila is a 23yo with SIUP at 39wk presenting for scheduled IOL for CHTN (on nifedipine 60mg QD and ASA 81mg QD) in the setting of severe obesity BMI >50. SCE: closed/thick/high. Vitals wnl, benign exam. Reassuring assessment overall. Cephalic on ultrasound, EFW today 3882g. care: Good care with [facility] PMhx/PNC significant for: CHTN on nifedipine 60mg QD and ASA 81mg QD, starting 24hr UP 99mg Severe obesity, BMI >50 Prediabetes, starting HgbA1c 5.5. Normal glucose testing in . Hyperlipidemia Fatty liver disease Mild intermittent asthma Anxiety/depression on zoloft prior to Seasonal allergies Plan: -Admit to L&D -Establish IV, routine labs -CEFM -Regular diet [id number], then clear liquid diet in labor -Junk Removal Specialist/consent re: iol and -GBS status: negative -Will initiate IOL with: cervidil x12hr then reassess -Anticipate -Safe to proceed Terri Castro MD (2) Obesity affecting : Status: Acute (3) Anemia affecting : Status: Acute (4) Prediabetes: Status: Acute (1) Hypertension affecting Qualifiers: Trimester: third trimester Qualified Code(s): O16.3 - Unspecified maternal hypertension, third trimester (2) Obesity affecting Qualifiers: Trimester: third trimester Obesity type affecting : other obesity due to excess calories Qualified Code(s): O99.213 - Obesity complicating , third trimester; E66.09 - Other obesity due to excess calories (3) Anemia affecting Qualifiers: Trimester: third trimester Qualified Code(s): O99.013 - Anemia complicating , third trimester
[2024-05-20] VITALS (253 sets, daily range): BP systolic 105–144; BP diastolic 55–84; PULSE 68–117; RESP 15–20; TEMP 36.7–37.2; O2SAT 91–100
[2024-05-20] MEDS: MISOPROSTOL 50 mCg TABLET 25 MCG VAGINAL (09:45)
[2024-05-20] MEDS: NIFEdipine XL 30 MG TABCR 60 MG PO (09:47)
--- NOTE | 2024-05-20 09:48 | PD.LDPN ---
Documentation for date of: 05/20/24 OB Labor Progress Note Pelvic Exam Dilation (cm): closed Effacement (%): 0 station: -3 Contractions Contraction frequency: rare Assessment and Plan Comments: Intrapartum Note Patient did well overnight. Cervidil was taken out approx 0330, SCE was 1.5/50/-3 and PO cytotec was initiated. Vitals: mostly normotensive, occasional mild bp. Afbrile Cat I FHRT [place]: irreg ctx SCE: 1/75/-2. Cervical hernandez balloon placed with 40cc NS, well tolerated. 25mcg cytotec placed vaginally as well. Plan: Await hernandez balloon falling out Continue cytotec 25mcg PV Q4hr Regular diet [id number] then clears in labor CEFM Safe to proceed Terri Castro MD
[2024-05-20] MEDS: RINGERS LACTATED 1000 ML 1,000 ML 125 ML IV (16:59)
[2024-05-20] MEDS: OXYTOCIN in NS 30 units 30 UNIT/500 ML BAG IV (18:29)
[2024-05-21] VITALS (227 sets, daily range): BP systolic 72–158; BP diastolic 52–95; PULSE 74–137; RESP 15–25; TEMP 36.4–38.3; O2SAT 88–100
--- NOTE | 2024-05-21 00:57 | PD.LDPN ---
Documentation for date of: 05/21/24 OB Labor Progress Note Pelvic Exam Dilation (cm): closed Effacement (%): 0 station: -3 Contractions Contraction frequency: rare Assessment and Plan Comments: Intrapartum Note Patient doing well. RN requested ROM for internal monitors since at times it's difficult to track FHR well. Pitocin is at 9mu, patient hasn't yet requested epidural. Vitals: normal to occasional mild range bp, afebrile Cat I FHRT overall Ctx q5min SCE: 5/75/-2, AROM performed with clear fluid noted. IUPC and FSE placed without incident, well tolerated Plan: -Continue to titrate pitocin per protocol -CEFM -Clear liquid diet -Discussed patient can have epidural at any point if she desires -Close eye to bp -Safe to proceed Terri Castro MD
[2024-05-21] MEDS: RINGERS LACTATED 1000 ML 1,000 ML 125 ML IV ×2 (01:57→04:14)
--- NOTE | 2024-05-21 08:28 | PD.LDPN ---
Documentation for date of: 05/21/24 OB Labor Progress Note Pelvic Exam Dilation (cm): closed Effacement (%): 0 station: -3 Contractions Contraction frequency: rare Assessment and Plan Comments: Decision for section Patient is comfortable with epidural. Overnight, after epidural was placed she had some low bp's and had IVF boluses that ultimately resolved the issue. Vitals: normotensive, afebrile SCE: 5-6/75/-3, unchanged since 0000 Cat I-II FHRT for min-mod buddy, +accels, -decels Plan: -I discussed with patient that section is indicated given absence of cervical change management consultant 8 hours and she voiced her understanding -Counseled/consented re: section. Discussed all r/b/a to include: bleeding (possible need for blood transfusion), infection (subcutaneous, deeper layers or uterine with possible need for prolonged admission or re-admission for IV antibiotics, I&D with wound packing, etc), injury to nearby structures such as bladder, bowel, ureters, blood vessels, nerves with possible need for re-operation, pain, injury to baby, hysterectomy, DVT/PE, . Answered all questions to patient and their support person's satisfaction. -IV abx ppx: 3g IV anceph, 500mg IV azithromycin -Nursing and anesthesia team aware of plan for section. Will proceed to OR when team is ready (there is one patient ahead of us who has a more pressing need for , goal is quick turnover between cases to proceed right after)
[2024-05-21] MEDS: CITRIC ACID/SODIUM CITR 15 ML UDC (BICITRA) 30 ML PO (11:25)
[2024-05-21] MEDS: ceFAZolin 3 GM in SODIUM CHLORIDE 0.9% 100 ML IV (11:26)
[2024-05-21] MEDS: FAMOTIDINE INJ 10 MG/ML VIAL 2 ML 20 MG IV (11:27)
[2024-05-21] MEDS: AZITHROMYCIN INJ 500 MG in SODIUM CHLORIDE 0.9% 250 ML 250 ML 250 MG IV (11:30)
[2024-05-21 13:57] LABS: Basophils % (Auto) 0 % (0-2.5); Eosinophils % (Auto) 0 % (0-10); Hematocrit 32.9 % (36.0-46.0); Hemoglobin 10.9 g/dL (12.0-16.0); Immature Granulocytes % (Auto) 0 % (0-0); Immature Granulocytes Auto 0.08 Thou/mm3 (0.00-0.00); Lymphocytes # (Auto) 1.8 Thou/mm3 (1.0-4.8); Lymphocytes % (Auto) 10 % (10-50); Mean Corpuscular HGB Conc 33.1 g/dl (31.0-37.0); Mean Corpuscular Hemoglobin 26.1 pg (25.0-35.0); Mean Corpuscular Volume 79 fL (80-100); Monocytes % (Auto) 5 % (0-12); Neutrophils # (Auto) 15.6 Thou/mm3 (1.8-7.7); Neutrophils % (Auto) 84 % (37-80); Nucleated Red Blood Cell % 0 /100 WBC (0); Platelet Count 255 Thou/mm3 (140-440); RDW Standard Deviation 48.3 fL (36.4-46.3); Red Blood Count 4.18 Miln/mm3 (4.00-5.20); White Blood Count 18.5 Thou/mm3 (3.6-11.0)
--- NOTE | 2024-05-21 14:36 | PD.RESCONSUL ---
HPI Data of Consult Consult date: 05/21/24 Requesting Physician: Terri Castro MD Admitting Provider: Terri Castro MD Attending Provider: Terri Castro MD Primary Care Provider: Physician No Primary/Family Consult Narrative Reason for consult: hemorrhage History of present illness: 23 yo female with past medical history of mild asthma, chronic HTN, depression, prediabetes, fatty liver disease presented to [place] for labor and delivery at 39 weeks gestation. Labor was complicated by failure to progress and a decision was made for section. She underwent neuraxial anesthesia and the was complicated with hemorrhage and uterine atony. In the OR, she received oxytocin, methergine, TXA, hemabate, and 1.2L of LR. EBL was 2.5 L. converted to a hysterectomy. Systolic BP was in the 120s-140s in the OR. She received total 2 units of pRBCs. Hgb 11 before the operation and 10.9 . Patient was evaluated in mother and baby. She was not in acute distress - conversing appropriately with her child at bedside. SBP was in the 130s . Afebrile. Stable vital signs ICU was consulted . cc:: cc: Terri Castro MD Review of Systems Review of Systems Systems Reviewed: All systems reviewed, normal except as documented Exam Vital Signs Temp Pulse Resp BP Pulse Ox O2 Del Method 98.0 F 94 16 144/74 H 99 Room Air 05/21/24 13:25 05/21/24 13:25 05/21/24 13:25 05/21/24 13:25 05/21/24 13:25 05/20/24 19:10 Narrative Exam General: no acute distress, morbid obese young female, conversing, pleasant with baby at bedside Eyes: Pupils are equal and reactive to light bilaterally HEENT: Atraumatic, normocephalic. No JVD noted. Mucosa moist. Cardiovascular: Regular rate and rhythm. +1 pitting edema. +2 capillary refill in upper and lower extremity. Respiratory: Lungs are clear to auscultation bilaterally. No wheezing or crackles heard. Abdomen: Soft, slight tenderness to the incision underneath her umbilicus with dressings, not distended, normal bowel sounds. no guarding or rigidity. +hernandez Skin: Warm to touch, dry, no rashes noted. Musculoskeletal: No gross injuries. Able to move the upper extremities. Can wiggle her toes. Neuro: Alert and oriented x4. Results Labs 05/22/24 09:34 05/22/24 02:02 Labs: Short CBC 05/21/24 Range/Units 13:40 WBC 18.5 H D (3.6-11.0) Thou/mm3 Hgb 10.9 L (12.0-16.0) g/dL Hct 32.9 L (36.0-46.0) % Plt Count 255 (140-440) Thou/mm3 Quality Measures Quality Measures none Medications Home Medications and Allergies Home Medications ?Medication ?Instructions ?Recorded ?Confirmed ?Type aspirin 81 mg capsule 81 mg PO QDAY 04/10/24 05/19/24 History vitamin-ferrous sulfate 1 tab PO QDAY 04/10/24 05/19/24 History 27 mg iron-folic acid 0.8 mg tablet nifedipine 60 mg tablet,extended mg PO QDAY 05/14/24 History release 24 hr (Procardia XL) Allergies Allergy/AdvReac Type Severity Reaction Status Date / Time No Known Allergies Allergy Verified 05/19/24 12:30 Visit Medications Benzocaine (Benzo/Lano/Aloe (Dermoplast) 60 Gm Can) 1 spray TOP PRN PRN PRN Reason: PERINEAL DISCOMFORT Stop: 06/18/24 12:55 Lactated Ringer's (Lactated Ringers) 500 mls @ 999 mls/hr IV .Q31M PRN PRN Reason: HR tracing (Per Policy) Stop: 06/18/24 12:55 Tranexamic Acid (Tranexamic Acid Ivpb) 1,000 mg in 100 mls @ 200 mls/hr IV PRNMRX1 PRN PRN Reason: BLEEDING Oxytocin/Sodium Chloride (Pitocin 20 Units In Ns) 20 unit in 1,000 mls @ 125 mls/hr IV .Q8H [facility] Stop: 06/18/24 12:59 Oxytocin/Sodium Chloride (Pitocin 30 Units In Ns) 30 unit in 500 mls @ 1 mls/hr IV .Q24H PRN; Protocol PRN Reason: INDUCTION Stop: 06/19/24 15:51 Last Titration: 05/21/24 07:15 Dose: 0 milliunit/min, 0 mls/hr Lactated Ringer's (Lactated Ringers) 1,000 mls @ 125 mls/hr IV .Q8H [facility] Stop: 05/21/24 16:57 Last Admin: 05/21/24 04:14 Dose: 125 mls/hr Sodium Chloride (Ns) 1,000 mls @ 125 mls/hr IV .Q8H [facility] Stop: 06/20/24 12:14 Acetaminophen (Ofirmev Inj) 1,000 mg in 100 mls @ 250 mls/hr IV Q6HR PRN PRN Reason: PAIN SCALE 1-3 (mild Stop: 05/22/24 12:05 Ibuprofen (Ibuprofen Tab 400 Mg Tablet) 800 mg PO X1 PRN PRN Reason: uterine cramping Methylergonovine Maleate (Methylergonovine Inj 0.2 Mg/Ml Vial) 0.2 mg IM X1 PRN PRN Reason: Excessive Bleeding Mineral Oil (Mineral Oil 30 Ml Udc) 30 ml TOP PRN PRN PRN Reason: To perineum for delivery. Stop: 06/18/24 12:55 Misoprostol (Misoprostol 200 Mcg Tablet) 800 mcg IL X1 PRN PRN Reason: BLEEDING Misoprostol (Misoprostol 50 Mcg Tablet) 50 mcg PO Q4H PRN PRN Reason: SEE COMMENTS Nifedipine (Nifedipine Xl 30 Mg Tabcr) 60 mg PO QDAY [facility] Stop: 06/19/24 08:59 Last Admin: 05/21/24 08:58 Dose: Not Given Oxytocin (Oxytocin Inj 10 Unit/Ml Vial) 10 unit IM X1 PRN PRN Reason: After placenta delivers Discontinued Medications Citric Acid/Sodium Citrate (Citric Acid/Sodium Citr 15 Ml Udc (Bicitra)) 30 ml PO X1 ONE Stop: 05/21/24 08:47 Last Admin: 05/21/24 11:25 Dose: 30 ml Dinoprostone (Dinoprostone 10 Mg Vag.Supp) 10 mg VAGINAL X1 ONE Stop: 05/19/24 15:32 Last Admin: 05/19/24 15:58 Dose: 10 mg Diphenoxylate HCl/Atropine (Diphenoxylate/Atrop Sulf 1 Tab) 1 tab PO X1 ONE Stop: 05/21/24 14:16 Famotidine (Famotidine Inj 10 Mg/Ml Vial 2 Ml) 20 mg IV X1 ONE Stop: 05/21/24 08:51 Last Admin: 05/21/24 11:27 Dose: 20 mg Fentanyl Citrate (Fentanyl Cit Inj 50 Mcg/Ml Amp 2ml) 50 mcg IV Q5M PRN PRN Reason: PAIN SCALE 4-6 (Moderate Stop: 05/21/24 14:06 Hydromorphone HCl (Hydromorphone Inj 2 Mg/Ml Vial) 0.4 mg IV Q5M PRN PRN Reason: PAIN SCALE 7-10 (Severe Stop: 05/21/24 14:06 Cefazolin Sodium 3 gm/ Sodium (Chloride) 100 mls @ 200 mls/hr IV X1 ONE Stop: 05/21/24 09:12 Last Admin: 05/21/24 11:26 Dose: 200 mls/hr Azithromycin 500 mg/ Sodium (Chloride) 250 mls @ 250 mls/hr IV X1 ONE Stop: 05/21/24 09:44 Last Admin: 05/21/24 11:30 Dose: 250 mls/hr Ketorolac Tromethamine (Ketorolac Inj 30 Mg/Ml Vial) 30 mg IVP Q6HR PRN PRN Reason: SEVERE BREAKTHRU PAIN Stop: 05/21/24 14:06 Lidocaine HCl (Lidocaine Hcl 1% 20 Ml Vial) 20 ml INFL X1 ONE Stop: 05/19/24 12:57 Metoclopramide HCl (Metoclopramide Inj 5 Mg/Ml Vial 2 Ml) 5 mg IV PRNMRX1 PRN PRN Reason: NAUSEA Stop: 05/21/24 14:06 Misoprostol (Misoprostol 50 Mcg Tablet) 25 mcg VAGINAL X1 ONE Stop: 05/20/24 09:50 Last Admin: 05/20/24 09:45 Dose: 25 mcg Morphine Sulfate (Morphine Sulf Inj 10 Mg/Ml Vial) 2 mg IVP X1 PRN PRN Reason: Severe pain max 3 doses Stop: 05/21/24 14:06 Naloxone HCl (Naloxone Inj 0.4 Mg/Ml Vial) 0.08 mg IV UD PRN PRN Reason: OPIATE REVERSAL Stop: 05/21/24 14:06 Ondansetron HCl (Ondansetron Inj 2 Mg/Ml Inj 2 Ml) 4 mg IV PRNMRX1 PRN PRN Reason: NAUSEA Stop: 05/21/24 14:06 Assessment & Plan Plan 23 yo female with PMH of mild asthma, morbid obesity with BMI of 50 presents s/p and hysterectomy NEURO stable CARIODVASCULAR stable RESPIRATORY stable GI stable RENAL stable ENDO stable HEME #post- hemorrhage 2/2 uterine atony, resolved s/p hysterectomy s/p 2units of pRBC Hgb stable at 10.9 from 11 - stable, not requiring pressors at this time - not requiring ICU admission at this time - Please feel free to reconsult us if symptoms are worsening ID stable Ying Carrero, PGY4 chairman president and chief executive officer I discussed this case with the ICU dragline operator helper Dr. Mccord ATTending note pt seen and examined, d/w resident team. Agree with above. in brief this is a 23yo F who is s/p hemorrhage with hysterectomy. She started to become hypotensive on the floor with SBP 90s-110s and ICU was consulted. She had received 1.3lts of IVF post OR and 2 u PRBCs. Recommendations were for transfer to tele. Data on the BP monitor was reviewed for the last several hours and d/w bedside nurse was held. She was awake alert oriented and conversant. Shortly after she c/o feeling warm and had a brief syncopal episode where her BP dropped to the 70s. A 2nd and 3rd lt of IVF were ordered and repeat Hb showed 8.5. An additional 2u PRBCs were ordered. pt recovered well and quickly. She was transferred to tele after confirmation of a good BP and a perfusing MAP. pt was noted to be mentating. The resident team performed a FAST exam which was reported as negative. At 830p a repeat Hb was drawn and found to be slightly lower at which point a stat abd/pelvis CT was ordered with contrast to eval for extravasation and bleeding. During this time the pts hemodynamics remained stable. A report of clot was noted on CT and pts surgeon was notified by the ICU night charge. ~70min was spent with eval, exam, review, intervention, discussion and formulation of POC for this pt. I d/w hospitalist team several times as well as with OB
[2024-05-21 14:38] LABS: Alanine Aminotransferase 8 U/L (10-49); Albumin, Serum 3.5 gm/dL (3.5-5.0); Albumin/Globulin Ratio 1.3 (1.2-2.2); Alkaline Phosphatase 151 U/L (46-116); Anion Gap 11 (7-16); Aspartate Amino Transferase 13 U/L (0-34); BUN/Creatinine Ratio 10 Ratio (12-20); Bilirubin,Total 0.6 mg/dL (0.3-1.2); Blood Urea Nitrogen 8 mg/dL (9-23); Calcium 8.6 mg/dL (8.3-10.6); Carbon Dioxide 21.8 mMol/L (20.0-31.0); Chloride 107 mMol/L (98-107); Creatinine (Component) 0.8 mg/dL (0.6-1.3); Estimated Creatinine Clearance 270.8 mL/min (>60); Globulin 2.8 gm/dL (2.3-3.5); Glucose 110 mg/dL (74-106); Osmolality,Calculated 278 (275-295); Potassium 4.1 mMol/L (3.4-5.1); Sodium 140 mMol/L (136-145); Total Protein 6.3 gm/dL (5.7-8.2); eGFR > 60 See Note
--- NOTE | 2024-05-21 14:51 | ESOP_ITS ---
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 She experienced an arrest of dilation at 6cm, so section was recommended and performed. During the section she had severe hemorrhaging related to unresolvable uterine atony despite multiple uterotonics, TXA, uterine massage and clamping of uterine vessels which necessitated emergency, life-saving supracervical hysterectomy. Pre-Op diagnosis: [facility] at 39w1d undergoing IOL for CHTN with arrest of dilation Severe obesity, BMI >50 Pre-diabetes, starting HgbA1c 5.5. Normal glucose testing in . Hyperlipidemia Fatty liver disease Post-Op diagnosis: [facility] at 39w1d undergoing IOL for CHTN with arrest of dilation Severe hemorrhaging related to unresolvable uterine atony Severe obesity, BMI >50 Pre-diabetes, starting HgbA1c 5.5. Normal glucose testing in . Hyperlipidemia Fatty liver disease Anesthesia type: Epidural Procedure description: After obtaining informed consent, the patient was taken to the operating room. There was reassuring heart rate tracing prior. She had epidural and hernandez catheter in place already and bilateral sequential compression devices were placed. She was then prepped and draped in the normal sterile fashion in the dorsal supine position with left lateral tilt. A timeout was performed to confirm patient name, date of , procedure and indication. The team was in agreement. Epidural anesthesia was found to be adequate using an Allis clamp. Anceph 3g IV x1 and azithromycin 500mg IV x1 were given for prophylaxis. A Pfannenstiel skin incision was then made with the scalpel and carried through to the underlying layer of fascia. The fascia was incised in the midine and the incision was extended laterally with the Bowser scissors. The superior and inferior aspects of the fascial incision were then grasped with the Fritz clamps, elevated and the underlying rectus muscles were dissected off bluntly and sharply. The peritoneum was entered digitally and the rectus muscles were then in the midline. The peritoneal incision was then extended superiorly and inferiorly with good visualization of the bladder. An Dain retractor was placed and the vesicouterine peritoneum was then identified, grasped with the pickups, and entered sharply with the Metzenbaum scissors. The incision was extended laterally and the bladder flap created digitally. The lower uterine segment was scored in a transverse fashion with the scalpel. The uterus was then entered bluntly and the incision was extended with traction with clear amniotic fluid noted. The 's head was elevated to the level of the incision. Fundal pressure was applied. The head was delivered atraumatically in the OA position. The anterior shoulder, posterior shoulder and corpus were delivered without difficulty. The nose and mouth were suctioned with bulb s uction and cord was clamped x2 and cut. was vigorous. The was handed off to the awaiting nursing team. Cord blood obtained for typing. The placenta (accessory lobe present) was then removed with uterine massage and cord traction. The uterus was exteriorized and cleared of all clot and debris. The uterine incision was repaired with 0-vicryl suture in a running locking fashion. During the hysterotomy repair, the uterus had ZERO tone. During hysterotomy repair, IV pitocin was given per protocol as well as TXA 1g IV x1, methergine 0.2mg IM x2 and hemabate 0.25mg IM x1. Vigorous uterine massage was performed in between placing sutures. Despite all of these measures, complete atony of the uterus remained and after closure of the hysterotomy straight clamps were placed along the sides of the uterus to reduce blood flow through the uterine arteries. I asked for 2 units of pRBCs to be called for and given. Nursing staff attempted to place another IV line, but were unable to given patient's body habitus. I requested for Dr. Patterson to consult and just after closure of the hysterotomy he presented to the OR. We both agreed that the necessary next step was life-saving hysterectomy given the complete absence of tone and zero response to all of the above uterotonics. I spoke with the patient and informed her of the diagnosis and recommendation. She voiced her understanding and consented to hysterectomy. We used the Enseal Large Jaw Tissue Sealer to coagulate and then cut along the left side of the uterus ( the uterine body from the left round ligament, the left utero-ovarian ligament, the left mesosalpinx and left broad ligament), going all the way down until just past the closed hysterotomy line (staying a good distance above the bladder). The process was repeated on the right side. At this point, Carlos clamps were placed from left and right sides (meeting in the middle) across the uterus just under the repaired hysterotomy line and a scalpel was used to excise the uterus just above the clamps. The uterus was removed from the field. The remaining portion of the lower uterine segment/cervical complex was grasped with fritz clamps and 0-vicryl suture was used to close the uterine segment/cervical complex in running fashion on the left side and a 2nd 0-vicryl suture was used to do the same on the right side until there was complete closure and total hemostasis. The pedicle lines and adnexa bilaterally were observed and a small area of bleeding along the left adnexa was addressed by placing a compressive suture around the left suspensory ligament which fully resolved the bleeding. The pelvis was irrigated and suctioned and there was no further bleeding noted with close observation. Surgicel powder was placed over the pedicles and remai anthony portion of uterus/cervix complex. The dain retractor was removed. The peritoneum was closed using a 3-0 vicryl suture in running fashion. The rectus muscles were inspected and small areas of oozing were cauterized. The fascia was reapproximated with 0-Vicryl suture in a running fashion. The subcutaneous tissue was then irrigated. At that point ANNETTE Danielle reapproximated Calli's fascia using 3-0 vicryl suture in a running fashion. She then sutured the skin with 4-0 monocryl suture in running subcuticular fashion. The incision was cleaned with a wet lap and dried with a dry lap. Pillo [id number] bandage was applied overlying the incision and activated according to spray stainer instructions. Sponge, lap and needle counts were correct x2. Throughout the duration of the procedure, vitals remained normal. There was a large clot removed from the vagina and close observation over the next few minutes revealed absolutely no vaginal bleeding. CBC and coags were drawn before patient left the OR. After speaking with ICU attending Dr. Mccord and L&D charge nurse, we decided for ICU/IM consult, but ultimately that room with telemetry would be the best location for close observation and to keep mother- baby couplet together. She was taken to room in stable condition. Will continue anceph for 24 hours postoperatively. Fluid amount (mL): 1,900 (1200ml LR, 700ml from 2u pRBCs) Urine output (mL): 200 Specimen: uterus and other (placenta, cord) Estimated blood loss (ml): 2,500 Findings: Female in cephalic presentation, apgars 8/8, TOB 1213, weight 4310g. Uterus, fallopian tubes and ovaries normal in appearance. During closure of the hysterotomy, severe hemorrhage occurred related to unresolvable uterine atony. Hysterectomy performed just below the repaired hysterotomy line. Surgicel powder placed over the pedicles and remaining portion of uterus/cervix complex. Complications: intraoperative hemorrhage (related to unresolvable atony) Surgical staff Operation Date: 05/21/24 11:45 Case Staff Surgeon: Dr. Terri Castro MD Bullet Slug Casting Machine Operator: Dr. Pino Patterson MD whose assistance was necessary for the hysterectomy portion of the procedure STEAM SETTER: Lolis Rubi SEWING DEPARTMENT SUPERVISOR: Mar Canseco Diagnosis Discharge Diagnosis (1) Hypertension affecting : Status: Acute (2) Obesity affecting : Status: Acute (3) Anemia affecting : Status: Acute (4) Prediabetes: Status: Acute (5) Arrest of dilation, delivered, current hospitalization: Status: Acute (6) S/P emergency hysterectomy: Status: Acute (7) Atony of uterus with hemorrhage: Status: Acute (8) Blood transfusion during current hospitalisation: Status: Acute Problem List Completed Was Problem List Reviewed/Reconciled?: Yes (1) Hypertension affecting Qualifiers: Trimester: third trimester Qualified Code(s): O16.3 - Unspecified maternal hypertension, third trimester (2) Obesity affecting Qualifiers: Trimester: third trimester Obesity type affecting : other obesity due to excess calories Qualified Code(s): O99.213 - Obesity complicating pre gnancy, third trimester; E66.09 - Other obesity due to excess calories (3) Anemia affecting Qualifiers: Trimester: third trimester Qualified Code(s): O99.013 - Anemia complicating , third trimester
--- NOTE | 2024-05-21 15:06 | PD.LDDELS ---
Data (Duran) Data : 1 Para: 0 Term: 0 : 0 : 0 Delivery Data (Duran) Labor Data ROM Date: 05/21/24 ROM Time: 00:46 Rupture Type: AROM Amniotic Fluid: Clear Delivery Data Labor Onset Stage 1 Date: 05/21/24 Labor Onset Stage 1 Time: 00:45 Labor Onset Stage 2 Date: 05/21/24 Labor Onset Stage 2 Time: 12:13 Delivery Date: 05/21/24 Delivery Time: 12:13 Placenta Delivery Date: 05/21/24 Placenta Delivery Time: 12:14 Delivered by: Terri Castro Delivery nurse: Maria Luz Cantrell Other staff at delivery: Nurse Other staff at delivery: 2nd Nurse Other staff at delivery: RT Other staff at delivery: Nurse Other staff at delivery: Sabine Paul Other staff at delivery: Pamela Lazaro Other staff at delivery: ho Other staff at delivery: Micah RM Delivery Method Delivery: Delivery Type: Primary Anesthesia Type Primary Anesthesia: Epidural Placenta Placenta Delivery: Manual Cord Sample: Cord Blood Obtained EBL Estimated blood loss (ml): 2,500 Additional Procedures hysterectomy performed for life-saving measures in response to severe atony unresolvable with multiple uterotonics. See operative note for further details. Complications Complications: Hemorrhage related to atony, see op report Data (Duran) Data Gender: Female Infant Weight Grams: 4310 1 Minute Total: 9 5 Minute Total: 8
[2024-05-21 15:09] LABS: Partial Thromboplastin Time 29.7 Seconds (22.0-36.0); Prothrombin Time 11.2 Seconds (9.0-12.2)
[2024-05-21 15:12] LABS: Fibrinogen 646 mg/dL (175-375)
--- NOTE | 2024-05-21 16:03 | PC.NURSE ---
1355 Matthew BATES aware of UOP for 2 hours 50mL. Orders received for 500mL LR bolus, give additional 500mL in one hour if still under 30mL/hr.
[2024-05-21] MEDS: ACETAMINOPHEN IVPB 1,000 MG/100 ML VIAL 250 MG IV (16:05)
[2024-05-21] MEDS: DIPHENOXYLATE/ATROP SULF 1 TAB PO (16:05)
[2024-05-21 17:16] LABS: Basophils % (Auto) 0 % (0-2.5); Eosinophils % (Auto) 0 % (0-10); Hematocrit 25.9 % (36.0-46.0); Immature Granulocytes % (Auto) 0 % (0-0); Immature Granulocytes Auto 0.06 Thou/mm3 (0.00-0.00); Lymphocytes # (Auto) 1.2 Thou/mm3 (1.0-4.8); Lymphocytes % (Auto) 8 % (10-50); Mean Corpuscular HGB Conc 32.8 g/dl (31.0-37.0); Mean Corpuscular Hemoglobin 26.4 pg (25.0-35.0); Mean Corpuscular Volume 80 fL (80-100); Monocytes # (Auto) 0.6 Thou/mm3 (0.0-0.8); Monocytes % (Auto) 4 % (0-12); Neutrophils # (Auto) 13.4 Thou/mm3 (1.8-7.7); Neutrophils % (Auto) 88 % (37-80); Nucleated Red Blood Cell # 0.03 Thou/mm3 (0.00-0.00); Nucleated Red Blood Cell % 0 /100 WBC (0); Platelet Count 258 Thou/mm3 (140-440); RDW Standard Deviation 47.4 fL (36.4-46.3); Red Blood Count 3.22 Miln/mm3 (4.00-5.20); White Blood Count 15.2 Thou/mm3 (3.6-11.0)
[2024-05-21 17:31] LABS: Hemoglobin 8.5 g/dL (12.0-16.0)
--- NOTE | 2024-05-21 17:37 | PC.NURSE ---
Addendum entered by Maria Luz Cantrell RN, RN 05/22/24 07:33: BPs trending down reviewed with MD on V/S monitor from start of recovery to time at bedside Original Note: [address] Magan BATES at bedside, report given to MD pt assessment done 1615 Flex BATES at bedside. Report given to MD. BPs trending down reviewed with patient. Per MD MAP is good. Per MD finish current L of LR
[2024-05-21 17:39] LABS: Fibrinogen 574 mg/dL (175-375); Partial Thromboplastin Time 30.7 Seconds (22.0-36.0); Prothrombin Time 11.3 Seconds (9.0-12.2)
[2024-05-21 17:47] LABS: Alanine Aminotransferase < 7 U/L (10-49); Albumin, Serum 2.6 gm/dL (3.5-5.0); Albumin/Globulin Ratio 1.1 (1.2-2.2); Alkaline Phosphatase 113 U/L (46-116); Anion Gap 9 (7-16); Aspartate Amino Transferase 12 U/L (0-34); BUN/Creatinine Ratio 13 Ratio (12-20); Bilirubin,Total 0.6 mg/dL (0.3-1.2); Blood Urea Nitrogen 9 mg/dL (9-23); Calcium 7.8 mg/dL (8.3-10.6); Calcium (Corrected) 8.9 mg/dL (8.5-10.1); Carbon Dioxide 19.6 mMol/L (20.0-31.0); Chloride 108 mMol/L (98-107); Creatinine (Component) 0.7 mg/dL (0.6-1.3); Estimated Creatinine Clearance 309.5 mL/min (>60); Globulin 2.3 gm/dL (2.3-3.5); Glucose 128 mg/dL (74-106); Osmolality,Calculated 274 (275-295); Potassium 4.2 mMol/L (3.4-5.1); Sodium 137 mMol/L (136-145); Total Protein 4.9 gm/dL (5.7-8.2); eGFR > 60 See Note
[2024-05-21] MEDS: oxyCODONE HCL 5 MG IR TAB PO (18:01)
--- NOTE | 2024-05-21 18:29 | PD.EVENT ---
Documentation for date of: 05/21/24 Event Note Event Note: I was called by RN and informed Rapid Response was called for patient having hypotension and passing out, diaphoretic. When I arrived to bedside, Rapid Response Team was present, 2nd liter of post-op IVF bolusing and bp already coming up. Patient awake and oriented. She never had significant tachycardia, highest pulse 90's and back to 80's when I arrived. Abdomen is soft. Urine is still tea colored and UOP over the last 1.5hr was 25cc. Hgb at 1700 was 8.5 (was 10.9 at 1340). Plt normal, coags normal though fibrinogen now 574 from 646. This seems more consistent with need for more fluid repletion and pRBCs than for internal bleeding given the whole clinical picture. She is transfering to telemetry floor for continued close observation through the night. I discussed with Dr. Mccord recommendations for another 2u of pRBCs and finish IVF bolus with likely another after that. Will repeat CBC at 2000. If Hgb not stable or uptrending after next 2u pRBCs, consider CT scan. Terri Castro MD
--- NOTE | 2024-05-21 18:33 | PD.RESEVENT ---
Documentation for date of: 05/21/24 Event Note Event Note: Rapid response called at 6:15pm for hypotension. Patient had passed out. BP was 72/53 with MAP of 57, HR in 100s. ICU residents, ICU charge nurse, and Ob at bedside. Patient awake, alert. Upper extremity peripheral pulses intact. Patient with warm extremities, no sandepe mottling noted over legs, knees, stomach. No sandeep bleeding per staff. Hemoglobin obtained at 5pm was 8.5 (decreased from 10 at 1pm to 8.5 at 5pm). Second bolus of LR was started. Boluses of IVF running bilaterally. Provider Network Analyst ordered for total of 3 bolus of LR and 2 units of PRBC, with repeat hemoglobin to follow up. Patient to be transferred to tele for closer monitoring. Elana Hernandez MD PGY-3
[2024-05-21] MEDS: RINGERS LACTATED 1000 ML 1,000 ML 999 ML IV (18:34)
--- NOTE | 2024-05-21 18:52 | PC.NURSE ---
primary rn taz pisano rn called that the pt felt like passing out, on arrival into room pt appeared diaphoretic, alert and oriented x3 but stated she felt like passing out and her chest felt heavy, HANGERSMITH called at 1805, financial systems manager team arrived at 1808 bp in room 72/53, pt was started on 10L oxy mask, 2nd LR bolus started on iv pressure bag. 1812 blood glucose at bedside 140. 1816 md jimenez into room. recent bp 104/74 taken on right upper arm. ICU team states to order additional 2 U PRBCS. additional 2LITER bolus ordered. md in room performed FAST test performed at bedside by icu resident. icu resident reported to md jimenez no acute bleed seen at this time. icu resident team recommended to give 2 unit prbc and 2 liter lr bolus and for patient to be transferred to tele. didi galloway rn handed off report to tele nurse aime.
[2024-05-21] MEDS: ceFAZolin/D5W 2 GM IV 2 GM/100 ML BAG IV ×2 (19:29→23:59)
--- NOTE | 2024-05-21 19:39 | ESCONSULT_ITS ---
<Statement entered by Elana Hernandez MD - 05/21/24 19:46> Patient is a 23yo F with PMH of HTN who was admitted for [facility] for L&D at 39 weeks gestation with subsequent complicated by hermorrhage and uterine atony and then hysterectomy. Estimated blood loss was 2.5L and patient recieved 2untis of PRBC, Hb at 11. Patient was hypotensive so ICU was consulted, who recommend patient to be placed on the floors. Upon initial evaluation, BP was 80/50s with MAP in 62s, taken with multiple BP cuffs at different sites. Patient had received 1 unit LR this afternoon, and BP improved to 100s/50s wtih MAP in the 70s. Later, RR was called for hypotension. See CIGAR MAKING MACHINE SUPERVISOR note. Will continue IVF, PRBC, serial H/H checks and monitor patient on tele. Elana Hernandez MD PGY-3 HPI Data of Consult Requesting Physician: Terri Castro MD Admitting Provider: Terri Castro MD Attending Provider: Terri Castro MD Primary Care Provider: Physician No Primary/Family Consult Narrative History of present illness: Nabila Mahmood is 23 yr female history of morbid obesity, Hyperlipidemia, fatty liver disease who is day 3. Patient delivered via and underwent life-saving supracervical hysterectomy. Postop complication included hemorrhage related to atony despite receiving multiple uterotonics. During operation, patient was given 1.2 L LR and 2 unit PRBC. Internal medicine team was consulted for assessment of patient due to hypotension readings. She was given additional 2 L bolus fluids (for total of 3 L) and 2 units PRBC after rapid response that was called. At bedside she is alert and oriented x 3, on 10L oxi mask, lethargic. Patient's blood pressure has now stabilized with MAP high 60s. She will be transferred to telemetry for closer monitoring. Will do CT AP is Hb does not improve with rbc transfusion. cc:: cc: Terri Castro MD Exam Vital Signs Temp Pulse Resp BP Pulse Ox O2 Del Method 100.3 F 91 18 106/69 99 Room Air 05/21/24 19:18 05/21/24 19:18 05/21/24 19:18 05/21/24 19:18 05/21/24 19:03 05/21/24 18:40 Narrative Exam General: Obese young lady, lethargic, cooperative HEENT: NCAT, No JVD noted. Mucosa moist. Pupils are equal and reactive to light bilaterally Cardiovascular: Normal S1 and S2. Regular rate and rhythm. Respiratory: Lungs difficult to auscultate due to body habitus Abdomen: Soft, nontender, not distended, normal bowel sounds. : No vaginal bleeding, Sofia catheter in place Skin: Warm to touch, dry, no rashes noted Musculoskeletal: No gross injuries. Able to move all 4 extremities. No pitting edema Neuro: Alert and oriented x3. No focal neuro deficits. Psych: Normal affect and mood Results Labs 05/22/24 19:10 05/22/24 19:10 Labs: Short CBC 05/21/24 05/21/24 Range/Units 13:40 17:01 WBC 18.5 H D 15.2 H (3.6-11.0) Thou/mm3 Hgb 10.9 L 8.5 L D (12.0-16.0) g/dL Hct 32.9 L 25.9 L (36.0-46.0) % Plt Count 255 258 (140-440) Thou/mm3 BMP 05/21/24 05/21/24 13:40 17:01 Sodium 140 137 Potassium 4.1 4.2 Chloride 107 108 H Carbon Dioxide 21.8 19.6 L BUN 8 L 9 Creatinine 0.8 0.7 Glucose 110 H 128 H Calcium 8.6 7.8 L Liver Function 05/21/24 05/21/24 Range/Units 13:40 17:01 Total Bilirubin 0.6 0.6 (0.3-1.2) mg/dL AST 13 12 (0-34) U/L ALT 8 L < 7 L (10-49) U/L Alkaline Phosphatase 151 H D 113 D (46-116) U/L Albumin 3.5 D 2.6 L D (3.5-5.0) gm/dL Quality Measures Quality Measures none Medications Home Medications and Allergies Home Medications ?Medication ?Instructions ?Recorded ?Confirmed ?Type aspirin 81 mg capsule 81 mg PO QDAY 04/10/2405/19 History vitamin-ferrous sulfate 1 tab PO QDAY 4 05/19/24 History 27 mg iron-folic acid 0.8 mg tablet nifedipine 60 mg tablet,extended mg PO QDAY 05/14/24 History release 24 hr (Procardia XL) Allergies Allergy/AdvReac Type Severity Reaction Status Date / Time No Known Allergies Allergy Verified 05/19/24 12:30 Visit Medications Hydrocodone Bitart/Acetaminophen (Hydrocodone/Apap 5/325 Tablet) 1 tab PO Q4HR PRN PRN Reason: Patient rated pain 7 to 8 Stop: 05/26/24 16:16 Hydrocodone Bitart/Acetaminophen (Hydrocodone/Apap 5/325 Tablet) 2 tab PO Q6HR PRN PRN Reason: Patient rated pain 9 to 10 Stop: 05/26/24 16:16 Diphtheria/Tetanus/Acell Pertussis (Diphth,Pertuss(Acell),Tet Vac 0.5 Ml Vial) 0.5 ml IMi X1 PRN PRN Reason: SEE COMMENTS Acetaminophen (Ofirmev Inj) 1,000 mg in 100 mls @ 250 mls/hr IV Q6HR PRN PRN Reason: PAIN SCALE 1-3 (mild Stop: 05/22/24 12:05 Acetaminophen (Ofirmev Inj) 1,000 mg in 100 mls @ 250 mls/hr IV Q6H [place] Stop: 05/22/24 10:20 Last Admin: 05/21/24 16:05 Dose: 250 mls/hr Cefazolin Sodium (Ancef 2gm Ivpb) 2 gm in 100 mls @ 100 mls/hr IV Q8HR [place] Stop: 05/22/24 16:00 Last Admin: 05/21/24 19:29 Dose: 100 mls/hr Measles/Mumps/Rubella Vaccine Live (Measles, Mumps & Rubella Vacc 0.5 Ml Vial) 0.5 ml SCi X1 PRN PRN Reason: if non-immune or equivocal Oxycodone HCl (Oxycodone Hcl 5 Mg Ir Tab) 5 mg PO Q6HR PRN PRN Reason: PAIN SCALE 7-10 (Severe Stop: 05/26/24 16:51 Last Admin: 05/21/24 18:01 Dose: 5 mg Simethicone (Simethicone 80 Mg Chew) 80 mg PO Q4HR PRN PRN Reason: GAS Stop: 06/20/24 16:16 Discontinued Medications Benzocaine (Benzo/Lano/Aloe (Dermoplast) 60 Gm Can) 1 spray TOP PRN PRN PRN Reason: PERINEAL DISCOMFORT Stop: 06/18/24 12:55 Citric Acid/Sodium Citrate (Citric Acid/Sodium Citr 15 Ml Udc (Bicitra)) 30 ml PO X1 ONE Stop: 05/21/24 08:47 Last Admin: 05/21/24 11:25 Dose: 30 ml Dinoprostone (Dinoprostone 10 Mg Vag.Supp) 10 mg VAGINAL X1 ONE Stop: 05/19/24 15:32 Last Admin: 05/19/24 15:58 Dose: 10 mg Diphenoxylate HCl/Atropine (Diphenoxylate/Atrop Sulf 1 Tab) 1 tab PO X1 ONE Stop: 05/21/24 14:16 Last Admin: 05/21/24 16:05 Dose: 1 tab Famotidine (Famotidine Inj 10 Mg/Ml Vial 2 Ml) 20 mg IV X1 ONE Stop: 05/21/24 08:51 Last Admin: 05/21/24 11:27 Dose: 20 mg Fentanyl Citrate (Fentanyl Cit Inj 50 Mcg/Ml Amp 2ml) 50 mcg IV Q5M PRN PRN Reason: PAIN SCALE 4-6 (Moderate Stop: 05/21/24 14:06 Hydromorphone HCl (Hydromorphone Inj 2 Mg/Ml Vial) 0.4 mg IV Q5M PRN PRN Reason: PAIN SCALE 7-10 (Severe Stop: 05/21/24 14:06 Lactated Ringer's (Lactated Ringers) 500 mls @ 999 mls/hr IV .Q31M PRN PRN Reason: HR tracing (Per Policy) Stop: 06/18/24 12:55 Tranexamic Acid (Tranexamic Acid Ivpb) 1,000 mg in 100 mls @ 200 mls/hr IV PRNMRX1 PRN PRN Reason: BLEEDING Oxytocin/Sodium Chloride (Pitocin 20 Units In Ns) 20 unit in 1,000 mls @ 125 mls/hr IV .Q8H [place] Stop: 06/18/24 12:59 Oxytocin/Sodium Chloride (Pitocin 30 Units In Ns) 30 unit in 500 mls @ 1 mls/hr IV .Q24H PRN; Protocol PRN Reason: INDUCTION Stop: 06/19/24 15:51 Last Titration: 05/21/24 07:15 Dose: 0 milliunit/min, 0 mls/hr Lactated Ringer's (Lactated Ringers) 1,000 mls @ 125 mls/hr IV .Q8H [facility] Stop: 05/21/24 16:57 Last Admin: 05/21/24 04:14 Dose: 125 mls/hr Cefazolin Sodium 3 gm/ Sodium (Chloride) 100 mls @ 200 mls/hr IV X1 ONE Stop: 05/21/24 09:12 Last Admin: 05/21/24 11:26 Dose: 200 mls/hr Azithromycin 500 mg/ Sodium (Chloride) 250 mls @ 250 mls/hr IV X1 ONE Stop: 05/21/24 09:44 Last Admin: 05/21/24 11:30 Dose: 250 mls/hr Sodium Chloride (Ns) 1,000 mls @ 125 mls/hr IV .Q8H [facility] Stop: 06/20/24 12:14 Lactated Ringer's (Lactated Ringers) 500 mls @ 999 mls/hr IV .Q31M ONE Stop: 05/21/24 16:37 Lactated Ringer's (Lactated Ringers) 1,000 mls @ 999 mls/hr IV .Q1H1M ONE Stop: 05/21/24 19:32 Last Admin: 05/21/24 18:34 Dose: 999 mls/hr Ibuprofen (Ibuprofen Tab 400 Mg Tablet) 800 mg PO X1 PRN PRN Reason: uterine cramping Ketorolac Tromethamine (Ketorolac Inj 30 Mg/Ml Vial) 30 mg IVP Q6HR PRN PRN Reason: SEVERE BREAKTHRU PAIN Stop: 05/21/24 14:06 Lidocaine HCl (Lidocaine Hcl 1% 20 Ml Vial) 20 ml INFL X1 ONE Stop: 05/19/24 12:57 Methylergonovine Maleate (Methylergonovine Inj 0.2 Mg/Ml Vial) 0.2 mg IM X1 PRN PRN Reason: Excessive Bleeding Metoclopramide HCl (Metoclopramide Inj 5 Mg/Ml Vial 2 Ml) 5 mg IV PRNMRX1 PRN PRN Reason: NAUSEA Stop: 05/21/24 14:06 Mineral Oil (Mineral Oil 30 Ml Udc) 30 ml TOP PRN PRN PRN Reason: To perineum for delivery. Stop: 06/18/24 12:55 Misoprostol (Misoprostol 200 Mcg Tablet) 800 mcg [place] X1 PRN PRN Reason: BLEEDING Misoprostol (Misoprostol 50 Mcg Tablet) 50 mcg PO Q4H PRN PRN Reason: SEE COMMENTS Misoprostol (Misoprostol 50 Mcg Tablet) 25 mcg VAGINAL X1 ONE Stop: 05/20/24 09:50 Last Admin: 05/20/24 09:45 Dose: 25 mcg Morphine Sulfate (Morphine Sulf Inj 10 Mg/Ml Vial) 2 mg IVP X1 PRN PRN Reason: Severe pain max 3 doses Stop: 05/21/24 14:06 Naloxone HCl (Naloxone Inj 0.4 Mg/Ml Vial) 0.08 mg IV UD PRN PRN Reason: OPIATE REVERSAL Stop: 05/21/24 14:06 Nifedipine (Nifedipine Xl 30 Mg Tabcr) 60 mg PO QDAY [place] Stop: 06/19/24 08:59 Last Admin: 05/21/24 08:58 Dose: Not Given Ondansetron HCl (Ondansetron Inj 2 Mg/Ml Inj 2 Ml) 4 mg IV PRNMRX1 PRN PRN Reason: NAUSEA Stop: 05/21/24 14:06 Oxytocin (Oxytocin Inj 10 Unit/Ml Vial) 10 unit IM X1 PRN PRN Reason: After placenta delivers Assessment & Plan Plan Nabila Mahmood is 23 yr female history of morbid obesity, Hyperlipidemia, fatty liver disease who is day 3. Internal medicine team was consulted for assessment of patient due to hypotension readings. She will be transferred to telemetry for closer monitoring. #Shock Most likely hypovolemic due to acute blood loss approximately 2.5 L post delivery. Patient also has low-grade fever, elevated WBC 15. Possibly distributive shock as well however WBCs may be reactive as patient just had surgery. She is on cefazolin post surgery prophylaxis. -Patient to be resuscitated per sepsis protocol at 30 cc/kg -Give additional 2 unit PRBC ? Follow-up posttransfusion H&H -Transfer patient to telemetry ? Continue monitoring blood pressure with MAP goal greater than 65 ? Patient continues to be hypotensive and MAP dropping after post resuscitation contact ICU for possible upgrade -Consider CT A/P if hemoglobin does not improve #s/p day 3 #Hysterectomy #Hx hyperlipidemia #Obesity class III Health maintenance: Dispo: Downgrade to telemetry from OB floor for monitoring of hypotension DVT prophylaxis: not indicated CODE STATUS: Full code Diet: Regular The patient's management plan was discussed with my attending physician Dr. Kiser and senior Dr. Hernandez. Rody Ann, PGY-1 Attending Provider Attestation/Addendum Face to face evaluation was performed by me. I have personally seen and examined the patient. I discussed the assessment and plan with the entire medicine team. I reviewed available medical records, imaging studies, laboratory results. I agree with the above subjective data, objective findings, assessment and plan except as corrected by me or noted below Acute blood loss anemia Hemorrhagic shock Hypotension S.p hysterectomy Hx of Prediabetes Morbid obesity HLD Pt underwent hysterectomy due to unresolvable uterine atony and hemorrhaging . transfer to telemetry bed, ICU MD Dr Mccord was initially consulted for ICU upgrade, she evaluate patient and felt like she is not icu appropriate at that period of time, so transfer to telemetry bed was recommended. so medicine team was contacted regarding the patient, Fluids boluses Hb was stable, trend still watch for post op complications DOCUMENT REVIEWER team to follow
--- NOTE | 2024-05-21 19:53 | PC.NURSE ---
PT WAS BROUGHT TO TELE FROM AT 1951 ON 05/21 WITH RN AT BEDSIDE. 3RD UNIT OF PRBCS RUNNING. PT A/O X4, COOPERATIVE AND AWARE OF SITUATION.
[2024-05-21 21:12] LABS: Basophils % (Auto) 0 % (0-2.5); Eosinophils % (Auto) 0 % (0-10); Hematocrit 24.4 % (36.0-46.0); Immature Granulocytes % (Auto) 1 % (0-0); Immature Granulocytes Auto 0.07 Thou/mm3 (0.00-0.00); Lymphocytes # (Auto) 1.6 Thou/mm3 (1.0-4.8); Lymphocytes % (Auto) 13 % (10-50); Mean Corpuscular Hemoglobin 26.9 pg (25.0-35.0); Mean Corpuscular Volume 79 fL (80-100); Monocytes # (Auto) 0.7 Thou/mm3 (0.0-0.8); Monocytes % (Auto) 6 % (0-12); Neutrophils # (Auto) 10.2 Thou/mm3 (1.8-7.7); Neutrophils % (Auto) 81 % (37-80); Nucleated Red Blood Cell # 0.03 Thou/mm3 (0.00-0.00); Nucleated Red Blood Cell % 0 /100 WBC (0); Platelet Count 236 Thou/mm3 (140-440); RDW Standard Deviation 45.8 fL (36.4-46.3); Red Blood Count 3.09 Miln/mm3 (4.00-5.20); White Blood Count 12.6 Thou/mm3 (3.6-11.0)
[2024-05-21 21:13] LABS: Hemoglobin 8.3 g/dL (12.0-16.0)
--- NOTE | 2024-05-21 21:18 | XR_ITS ---
Examination: CT abdomen with intravenous contrast CT pelvis with intravenous contrast 2-D coronal reconstructions 2-D sagittal reconstructions Date and time of exam:May 21, 2024 at 10 0 8:00 AM Comparison June 14, 2015 INDICATIONS: Post hysterectomy 2 days ago. CTDI: vol (mGy) 25.71 DLP: (mGycm) 1803 Technique: Multiple axial sections of the abdomen and pelvis have been obtained. 64 slice high-resolution scanner used. 3 mm axial sections have been obtained, post intravenous injection 60 cc [id number] 2-D sagittal, coronal reconstructions obtained. Low dose protocols were performed. One or more of the following dose reduction techniques were used; automated exposure control, adjustment of the mA and/or KV according to patient size, use of iterative reconstruction technique. Findings: Free fluid throughout the abdomen and subcapsular to the liver and spleen No gallstones No pancreatic mass Kidneys intact Fluid is more hyperdense in the pelvis Pelvic hematoma 11 x 7.6 cm with no active extravasation of contrast Postoperative change in the anterior pelvic wall IMPRESSION: Free fluid/blood throughout the abdomen and subcapsular to the liver and spleen 11 x 7.6 cm pelvic hematoma with no active extravasation of contrast noted on this non-CTA study
[2024-05-21] MEDS: MORPHINE SULF INJ 10 MG/ML VIAL 2 MG IVP (23:00)
--- NOTE | 2024-05-21 23:45 | PRELIM_ITS ---
ORIGINAL REPORT CT scan of the abdomen and pelvis with intravenous contrast (axial sections with sagittal and coronal reformats). May 21, 2024 at 2208 hours Clinical History: Rule out active bleed, status post hysterectomy. Comparison: No prior study is available for comparison. Findings: The lung bases are clear. The liver, gallbladder, pancreas, spleen, kidneys and adrenals are unremarkable. No evidence of bowel obstruction. No evidence of appendicitis. There is no mesenteric or retroperitoneal adenopathy. The urinary bladder is unremarkable. Large amount of blood products in the peritoneal cavity. Large clot in the pelvis and right abdomen. Questionable active bleeding in the right pelvis (axial image 199 of 340). The osseous structures are unremarkable. Soft tissue emphysema in the lower anterior abdominal wall. Trace of free air in the pelvis. Status post hysterectomy. Impression: 1. Large hemoperitoneum. 2. Large clot in the pelvis and right abdomen. 3. Questionable active bleeding in the right pelvis (axial image 199 of 340). Surgical consult is recommended. Discussion Details: Results verbally communicated to : Dr. Hagen at 11:31 PM 05/21/2024 Report Electronically Signed By: Matty Castro 05/21/2024 11:44:56 PM [EST] ADDENDUM REPORT Findings discussed with the surgical team. Report Electronically Signed By: Matty Castro 05/22/2024 1:00:33 AM [EST]
[2024-05-22] VITALS (18 sets, daily range): BP systolic 118–147; BP diastolic 56–100; PULSE 63–96; RESP 16–32; TEMP 36.1–36.9; O2SAT 94–100; BMI 58.3
--- NOTE | 2024-05-22 00:09 | PD.RESEVENT ---
Documentation for date of: 05/22/24 Event Note Event Note: Received a call from radiology service regarding patient's CT abdomen pelvis with contrast results, preliminary read significant for large pneumoperitoneum, large clot pelvis, right abdomen and questionable active bleeding in right pelvis. Radiology service phone #[phone]. Patient assessed at bedside, normotensive, alert and oriented x 3, last hemoglobin at 8:30 PM, will trend hemoglobin every 6 hours and continue close monitoring. Case discussed with Attending Dr. Lino. Daly Hgaen PGY1 Disclaimer: This note was dictated by speech recognition. Minor errors in cloth finishing range operator chief may be present due to voice recognition software.
[2024-05-22 00:43] LABS: Basophils % (Auto) 0 % (0-2.5); Eosinophils % (Auto) 0 % (0-10); Hematocrit 25.2 % (36.0-46.0); Immature Granulocytes % (Auto) 1 % (0-0); Immature Granulocytes Auto 0.07 Thou/mm3 (0.00-0.00); Lymphocytes # (Auto) 2.1 Thou/mm3 (1.0-4.8); Lymphocytes % (Auto) 17 % (10-50); Mean Corpuscular HGB Conc 34.1 g/dl (31.0-37.0); Mean Corpuscular Hemoglobin 25.9 pg (25.0-35.0); Mean Corpuscular Volume 76 fL (80-100); Monocytes # (Auto) 1.1 Thou/mm3 (0.0-0.8); Monocytes % (Auto) 9 % (0-12); Neutrophils # (Auto) 9.1 Thou/mm3 (1.8-7.7); Neutrophils % (Auto) 74 % (37-80); Nucleated Red Blood Cell # 0.02 Thou/mm3 (0.00-0.00); Nucleated Red Blood Cell % 0 /100 WBC (0); Platelet Count 106 Thou/mm3 (140-440); Red Blood Count 3.32 Miln/mm3 (4.00-5.20); White Blood Count 12.4 Thou/mm3 (3.6-11.0)
[2024-05-22 00:45] LABS: Hemoglobin 8.6 g/dL (12.0-16.0)
--- NOTE | 2024-05-22 01:09 | ESPR_ITS ---
Documentation for date of: 05/22/24 Exam Vital Signs Temp Pulse Resp BP Pulse Ox O2 Del Method 98.2 F 78 16 129/74 98 Room Air 05/22/24 00:00 05/22/24 00:00 05/22/24 00:00 05/21/24 21:25 05/22/24 00:00 05/22/24 00:00 Urinary Catheter Management Cath placed during this visit: no VICE PRESIDENT OF SOFTWARE DEVELOPMENT - PN: Obj Data Labs 05/22/24 00:28 05/21/24 17:01 Labs: Laboratory Results - last 24 hr 05/19/24 05/21/24 05/21/24 12:30 13:40 17:01 WBC 18.5 H D 15.2 H RBC 4.18 3.22 L Hgb 10.9 L 8.5 L D Hct 32.9 L 25.9 L MCV 79 L 80 MCH 26.1 26.4 MCHC 33.1 32.8 RDW Std Deviation 48.3 H 47.4 H Plt Count 255 258 Neut % (Auto) 84 H 88 H Lymph % (Auto) 10 8 L Scurry % (Auto) 5 4 Eos % (Auto) 0 0 Baso % (Auto) 0 0 Neut # (Auto) 15.6 H 13.4 H Lymph # (Auto) 1.8 1.2 Scurry # (Auto) 1.0 H 0.6 Eos # (Auto) 0.0 0.0 Baso # (Auto) 0.0 0.0 Immature Gran # (Auto) 0.08 H 0.06 H Absolute Nucleated RBC 0.00 0.03 H Immature Gran % 0 0 Nucleated RBC % 0 0 PT 11.2 11.3 INR 1.0 1.0 APTT 29.7 30.7 Fibrinogen 646 H* 574 H Sodium 140 137 Potassium 4.1 4.2 Chloride 107 108 H Carbon Dioxide 21.8 19.6 L Anion Gap 11 9 BUN 8 L 9 Creatinine 0.8 0.7 Estim Creat Clear Calc 270.8 309.5 eGFR > 60 > 60 BUN/Creatinine Ratio 10 L 13 Glucose 110 H 128 H Calculated Osmolality 278 274 L Calcium 8.6 7.8 L Corrected Calcium 9.0 8.9 Total Bilirubin 0.6 0.6 AST 13 12 ALT 8 L < 7 L Alkaline Phosphatase 151 H D 113 D Total Protein 6.3 4.9 L Albumin 3.5 D 2.6 L D Globulin 2.8 2.3 Albumin/Globulin Ratio 1.3 1.1 L Blood Type O Positive Antibody Screen NEGATIVE Crossmatch See Detail Blood Bank Wristband ID Yes 05/21/24 05/22/24 20:26 00:28 WBC 12.6 H 12.4 H RBC 3.09 L 3.32 L Hgb 8.3 L 8.6 L Hct 24.4 L 25.2 L MCV 79 L 76 L MCH 26.9 25.9 MCHC 34.0 34.1 RDW Std Deviation 45.8 48.0 H Plt Count 236 106 L D Neut % (Auto) 81 H 74 Lymph % (Auto) 13 17 Scurry % (Auto) 6 9 Eos % (Auto) 0 0 Baso % (Auto) 0 0 Neut # (Auto) 10.2 H 9.1 H Lymph # (Auto) 1.6 2.1 Scurry # (Auto) 0.7 1.1 H Eos # (Auto) 0.0 0.0 Baso # (Auto) 0.0 0.0 Immature Gran # (Auto) 0.07 H 0.07 H Absolute Nucleated RBC 0.03 H 0.02 H Immature Gran % 1 H 1 H Nucleated RBC % 0 0 PT INR APTT Fibrinogen Sodium Potassium Chloride Carbon Dioxide Anion Gap BUN Creatinine Estim Creat Clear Calc eGFR BUN/Creatinine Ratio Glucose Calculated Osmolality Calcium Corrected Calcium Total Bilirubin AST ALT Alkaline Phosphatase Total Protein Albumin Globulin Albumin/Globulin Ratio Blood Type Antibody Screen Crossmatch Blood Bank Wristband ID VICE PRESIDENT OF SOFTWARE DEVELOPMENT - A/P Assessment and plan (1) Post-op bleeding: Status: Acute Assessment and plan: Recommendation for OR take-back, Ex-lap with possible right salpingo- oophorectomy, possible left salpingo-oophorectomy I was called by IM regarding a prelim report that resulted for a CT abdomen/pelvis that was ordered by IM team because patient didn't have expected increase in Hgb after 3rd unit of pRBCs (at 1701 Hgb 8.5, at 20:26 Hgb 8.3). I spoke with the teleradiologist regarding the report: Findings: The lung bases are clear. The liver, gallbladder, pancreas, spleen, kidneys and adrenals are unremarkable. No evidence of bowel obstruction. No evidence of appendicitis. There is no mesenteric or retroperitoneal adenopathy. The urinary bladder is unremarkable. Large amount of blood products in the peritoneal cavity. Large clot in the pelvis and right abdomen. Questionable active bleeding in the right pelvis (axial image 199 of 340). The osseous structures are unremarkable. Soft tissue emphysema in the lower anterior abdominal wall. Trace of free air in the pelvis. Status post hysterectomy. Impression: 1. Large hemoperitoneum. 2. Large clot in the pelvis and right abdomen. 3. Questionable active bleeding in the right pelvis (axial image 199 of 340). Surgical consult is recommended. The radiologist, when queried how large the amount of blood in the abdomen is stated at least 1L . He felt that there was a small flush on the right side of the pelvis where he suspects active bleeding. At that point, I immediately went to bedside of patient whose vitals remain stable with only mild tachycardia. She has had continued abdominal pain despite IV tylenol requiring 2 doses of IV opioid. When asked if she has more pain on one side than the other, she states it hurts in general in her lower abdomen when she breathes deeply. Abdominal exam is difficult given body habitus, but it does seem tighter than it was earlier. No rebound/guarding. Repeat stat CBC at 0028 resulted showing Hgb only increased from 8.3 to 8.6 after 4th unit of pRBCs. I counseled patient regarding recommendation for OR take back for ex-lap with possible right salpingo-oophorectomy, possible left salpingo-oophorectomy. We discussed r/b/a including bleeding, infection, injury to nearby structures, and the very unlikely possibility of menopause should both ovaries need to be removed. I answered all questions to her apparent satisfaction. Charge nurse notified OR team to come in for planned procedure. I called Dr. Anderson, on-call general surgeon, asking for her assistance. I asked for 1 more unit pRBCs to be given in anticipation of procedure. Will proceed to OR when team is ready. Terri Castro MD (2) Hypertension affecting : Status: Acute (3) Obesity affecting : Status: Acute (4) Anemia affecting : Status: Acute (5) Prediabetes: Status: Acute (6) Arrest of dilation, delivered, current hospitalization: Status: Acute (7) S/P emergency hysterectomy: Status: Acute (8) Atony of uterus with hemorrhage: Status: Acute (9) Blood transfusion during current hospitalisation: Status: Acute Postoperative Procedures: Procedures Operation Date: 05/21/24 11:45 Actual Procedure Side Surgeon p in OB Not Applicable Terri Castro MD s Hysterectomy, Abdominal OB Not Applicable Terri Castro MD Time Spent With Patient Time: Total time spent is greater than 50% in coordination of care (as documented) at patient's floor/unit and/or counseling patient: Time with patient: less than 15 minutes
[2024-05-22] MEDS: MORPHINE SULF INJ 10 MG/ML VIAL 2 MG IVP ×3 (01:40→19:55)
[2024-05-22 02:25] LABS: Hematocrit 26.1 % (36.0-46.0)
[2024-05-22 02:59] LABS: Alanine Aminotransferase < 7 U/L (10-49); Albumin, Serum 2.6 gm/dL (3.5-5.0); Albumin/Globulin Ratio 1.2 (1.2-2.2); Alkaline Phosphatase 95 U/L (46-116); Anion Gap 8 (7-16); Aspartate Amino Transferase 13 U/L (0-34); BUN/Creatinine Ratio 11 Ratio (12-20); Bilirubin,Total 0.3 mg/dL (0.3-1.2); Blood Urea Nitrogen 9 mg/dL (9-23); Calcium (Corrected) 9.1 mg/dL (8.5-10.1); Carbon Dioxide 22.4 mMol/L (20.0-31.0); Chloride 109 mMol/L (98-107); Creatinine (Component) 0.8 mg/dL (0.6-1.3); Estimated Creatinine Clearance 270.8 mL/min (>60); Globulin 2.1 gm/dL (2.3-3.5); Glucose 124 mg/dL (74-106); Osmolality,Calculated 277 (275-295); Potassium 4.6 mMol/L (3.4-5.1); Sodium 139 mMol/L (136-145); Total Protein 4.7 gm/dL (5.7-8.2); eGFR > 60 See Note
[2024-05-22 03:00] LABS: Hemoglobin 8.4 g/dL (12.0-16.0)
--- NOTE | 2024-05-22 05:13 | PD.GYNPROC ---
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 She was being observed closely post-operatively and received 4u pRBCs in total between intra-op and post-op, but did not have the anticipated rise in hemaglobin, so CT abdomen/pelvis was performed which showed large hemoperitoneum with possible bleeding from right side of pelvis. Patient was counseled regarding need for re-operation to evacuate hemoperitoneum and address the source of bleeding. Pre-Op diagnosis: Hemoperitoneum post-operatively on day 1 s/p life-saving supracervical hysterectomy performed on 05/21/24 for severe hemorrhage related to unresolvable uterine atony Post-Op diagnosis: Hemoperitoneum post-operatively on day 1 s/p life-saving supracervical hysterectomy performed on 05/21/24 for severe hemorrhage related to unresolvable uterine atony No active bleeding Anesthesia type: General Procedure description: After obtaining informed consent, the patient was taken to the operating room. General endotracheal anesthesia was administered. A hernandez catheter was already in place as well as bilateral sequential compression devices. She was prepped and draped in the normal sterile fashion in the dorsal supine position. A timeout was performed to confirm patient name, date of , procedure and indication. The team was in agreement. Anceph 2g IV x1 was given for prophylaxis. The pre-existing Pfannenstiel skin incision was then opened up (suture removed) all the way down to the underlying layer of fascia. The fascial suture line was also opened up and suture removed. The peritoneal closure was then opened up and suture removed. At that time the hemoperitoneum (in the form of clot) was noted extending all the way up from the pelvis along the right paracolic gutter. The clot was fully evacuated manually and with irrigation used to break up any residual adherent clot. An Abdoul retractor was placed and the pelvis fully examined. There was no distinct, obvious source of bleeding. We observed the pedicle lines, uterine closure and posterior cul-de-sac, [id number] sac and could not find the source of the large hemoperitoneum. The left adnexa and associated vasculature was noted to be congested from the tie off of the suspensory ligament performed at time of hysterectomy- but it was hemostatic. There was a tiny amount of oozing from the center of the uterine closure, so I placed two figure of 8's using 0 vicryl suture and there was hemostasis after that. I called Dr. Anderson and requested that she come to the OR to help evaluate for any potential source of bleeding that wasn't immediately obvious. She ran the bowel, evaluated the omentum and looked over all of the pelvic structures and agreed that there was no active bleeding. In the movement of structures back and forth to observe for bleeding, there was a bit of oozing of dark blood that started from the congested left adnexa/vasculature, so I used 3-0 vicryl to oversew the area over the oozing and this then was hemostatic. We irrigated the pelvis both with NS and also sterile water to see if any active bleeding would become obvious, but it never did. We placed surgicel powder in the right paracolic gutter and all along the pedicle lines and uterine closure. We waited 5 minutes and then observed again for any welling up of blood through the surgicel, but there was none. Abdoul retractor was removed. FANNIE drain was placed in routine fashion in the right posterior cul-de-sac with the 5mm skin incision in the RLQ, secured with 2-0 nylon suture. The peritoneum was closed using a 3-0 vicryl suture in running fashion. The rectus muscles were inspected and noted to be hemostatic. The fascia was reapproximated with 0-Vicryl suture in a running fashion. FANNIE drain at this point was noted to have only small amount of brownish fluid (colored from the surgicel powder mixed with irrigant/old blood). ANNETTE Danielle re-approximated Calli's fascia using 3-0 vicryl suture in a running fashion. She then sutured the skin with 4-0 monocryl suture in running subcuticular fashion. The incision was cleaned with a wet lap and dried with a dry lap. Tcjxskxyc-[id number]-mlqb bandage was applied overlying the incision and activated according to spring former machine instructions. Sponge, lap and needle counts were correct x2. The procedure was without complications and the patient tolerated the procedure well. She was taken to PACU in stable condition. Fluids: crystalloid (400ml NS), blood (2u pRBCs = 700ml) and other (albumin 250ml. FFP 2u = 400ml. ) Fluid amount (mL): 1,750 Urine output (mL): 100 Specimen: none Estimated blood loss (ml): 300 (+ 1000ml hemoperitoneum/clot) Findings: Approximately 1000ml of clot evacuated from within the pelvis/abdomen. No active bleeding noted along pedicle lines, uterine closure or anywhere else in the pelvis/abdomen. Left adnexa and associated vasculature congested from tie off of suspensory ligament during hysterectomy- but hemostatic. Pelvis irrigated, surgicel placed. FANNIE drain placed in right posterior cul-de-sac. Complications: none Surgical staff Operation Date: 05/22/24 01:40 Case Staff Anesthesiologist: Ayush Nunes Assisting Surgeon: Arlette Anderson RN First Assistant: Lolis Rubi Diagnosis Discharge Diagnosis (1) Hemoperitoneum: Status: Acute (2) Post-op bleeding: Status: Acute (3) Blood transfusion during current hospitalisation: Status: Acute (4) S/P emergency hysterectomy: Status: Acute (5) Atony of uterus with hemorrhage: Status: Acute Problem List Completed Was Problem List Reviewed/Reconciled?: Yes (2) Post-op bleeding Qualifiers: Surgical complication system/body Area: genitourinary Procedure type: genitourinary Qualified Code(s): N99.820 - Postprocedural hemorrhage of a genitourinary system organ or structure following a genitourinary system procedure
--- NOTE | 2024-05-22 05:18 | SUR.PHASEI ---
pt received from OR in recovery bay 1. pt asleep but responds to voice, breathing unlabored on oxymask 8l. v/s stable. pt dressing to abd cdi, tobin drain in place. report received from Khang RAMSAY and Dr. Nunes.
--- NOTE | 2024-05-22 06:10 | SUR.PHASEI ---
pt asleep but responds to voice, breathing unlabored on 3l nc. v/s stable. pt dressing to lower right abd cdi, tobin drain in place. report called to Zohra RAMSAY. pt will be transferred to room at this time.
[2024-05-22 06:21] LABS: Basophils % (Auto) 0 % (0-2.5); Eosinophils % (Auto) 0 % (0-10); Hematocrit 29.5 % (36.0-46.0); Hemoglobin 9.7 g/dL (12.0-16.0); Immature Granulocytes % (Auto) 1 % (0-0); Immature Granulocytes Auto 0.06 Thou/mm3 (0.00-0.00); Lymphocytes # (Auto) 1.6 Thou/mm3 (1.0-4.8); Lymphocytes % (Auto) 14 % (10-50); Mean Corpuscular HGB Conc 32.9 g/dl (31.0-37.0); Mean Corpuscular Hemoglobin 26.5 pg (25.0-35.0); Mean Corpuscular Volume 81 fL (80-100); Monocytes # (Auto) 0.7 Thou/mm3 (0.0-0.8); Monocytes % (Auto) 7 % (0-12); Neutrophils # (Auto) 8.9 Thou/mm3 (1.8-7.7); Neutrophils % (Auto) 79 % (37-80); Nucleated Red Blood Cell # 0.02 Thou/mm3 (0.00-0.00); Nucleated Red Blood Cell % 0 /100 WBC (0); Platelet Count 187 Thou/mm3 (140-440); RDW Standard Deviation 50.6 fL (36.4-46.3); Red Blood Count 3.66 Miln/mm3 (4.00-5.20); White Blood Count 11.3 Thou/mm3 (3.6-11.0)
--- NOTE | 2024-05-22 06:45 | PC.NURSE ---
Recieved pt from OR at 0610. Pt is A/O, vital are stable, No signs of distress noted, dressing CDI, with FANNIE Drain in place and and bulb is compressed.
[2024-05-22 07:35] LABS: Fibrinogen 490 mg/dL (175-375); Partial Thromboplastin Time 28.3 Seconds (22.0-36.0); Prothrombin Time 10.9 Seconds (9.0-12.2)
[2024-05-22 09:45] LABS: Basophils % (Auto) 0 % (0-2.5); Eosinophils % (Auto) 0 % (0-10); Hemoglobin 8.9 g/dL (12.0-16.0); Immature Granulocytes % (Auto) 1 % (0-0); Immature Granulocytes Auto 0.05 Thou/mm3 (0.00-0.00); Lymphocytes # (Auto) 1.8 Thou/mm3 (1.0-4.8); Lymphocytes % (Auto) 17 % (10-50); Mean Corpuscular HGB Conc 34.2 g/dl (31.0-37.0); Mean Corpuscular Hemoglobin 26.8 pg (25.0-35.0); Mean Corpuscular Volume 78 fL (80-100); Monocytes # (Auto) 0.9 Thou/mm3 (0.0-0.8); Monocytes % (Auto) 9 % (0-12); Neutrophils # (Auto) 7.5 Thou/mm3 (1.8-7.7); Neutrophils % (Auto) 73 % (37-80); Nucleated Red Blood Cell # 0.02 Thou/mm3 (0.00-0.00); Nucleated Red Blood Cell % 0 /100 WBC (0); Platelet Count 200 Thou/mm3 (140-440); RDW Standard Deviation 49.2 fL (36.4-46.3); Red Blood Count 3.32 Miln/mm3 (4.00-5.20); White Blood Count 10.3 Thou/mm3 (3.6-11.0)
--- NOTE | 2024-05-22 11:18 | PD.GYNPROG ---
Documentation for date of: 05/22/24 Exam Vital Signs Temp Pulse Resp BP Pulse Ox O2 Del Method O2 Flow Rate 98 F 63 24 H 129/75 95 Room Air 3 05/22/24 06:05 05/22/24 07:00 05/22/24 07:00 05/22/24 07:00 05/22/24 07:00 05/22/24 00:00 05/22/24 06:05 Urinary Catheter Management Cath placed during this visit: no VIRTUALIZATION CONSULTANT - PN: Obj Data Labs 05/22/24 09:34 05/22/24 02:02 Labs: Laboratory Results - last 24 hr 05/19/24 05/21/24 05/21/24 12:30 13:40 17:01 WBC 18.5 H D 15.2 H RBC 4.18 3.22 L Hgb 10.9 L 8.5 L D Hct 32.9 L 25.9 L MCV 79 L 80 MCH 26.1 26.4 MCHC 33.1 32.8 RDW Std Deviation 48.3 H 47.4 H Plt Count 255 258 Neut % (Auto) 84 H 88 H Lymph % (Auto) 10 8 L [place] % (Auto) 5 4 Eos % (Auto) 0 0 Baso % (Auto) 0 0 Neut # (Auto) 15.6 H 13.4 H Lymph # (Auto) 1.8 1.2 [place] # (Auto) 1.0 H 0.6 Eos # (Auto) 0.0 0.0 Baso # (Auto) 0.0 0.0 Immature Gran # (Auto) 0.08 H 0.06 H Absolute Nucleated RBC 0.00 0.03 H Immature Gran % 0 0 Nucleated RBC % 0 0 PT 11.2 11.3 INR 1.0 1.0 APTT 29.7 30.7 Fibrinogen 646 H* 574 H Sodium 140 137 Potassium 4.1 4.2 Chloride 107 108 H Carbon Dioxide 21.8 19.6 L Anion Gap 11 9 BUN 8 L 9 Creatinine 0.8 0.7 Estim Creat Clear Calc 270.8 309.5 eGFR > 60 > 60 BUN/Creatinine Ratio 10 L 13 Glucose 110 H 128 H Calculated Osmolality 278 274 L Calcium 8.6 7.8 L Corrected Calcium 9.0 8.9 Total Bilirubin 0.6 0.6 AST 13 12 ALT 8 L < 7 L Alkaline Phosphatase 151 H D 113 D Total Protein 6.3 4.9 L Albumin 3.5 D 2.6 L D Globulin 2.8 2.3 Albumin/Globulin Ratio 1.3 1.1 L Blood Type O Positive Antibody Screen NEGATIVE Crossmatch See Detail Blood Bank Wristband ID Yes Blood Bank Comment 05/21/24 05/22/24 05/22/24 20:26 00:28 02:02 WBC 12.6 H 12.4 H RBC 3.09 L 3.32 L Hgb 8.3 L 8.6 L 8.4 L Hct 24.4 L 25.2 L 26.1 L MCV 79 L 76 L MCH 26.9 25.9 MCHC 34.0 34.1 RDW Std Deviation 45.8 48.0 H Plt Count 236 106 L D Neut % (Auto) 81 H 74 Lymph % (Auto) 13 17 [place] % (Auto) 6 9 Eos % (Auto) 0 0 Baso % (Auto) 0 0 Neut # (Auto) 10.2 H 9.1 H Lymph # (Auto) 1.6 2.1 [place] # (Auto) 0.7 1.1 H Eos # (Auto) 0.0 0.0 Baso # (Auto) 0.0 0.0 Immature Gran # (Auto) 0.07 H 0.07 H Absolute Nucleated RBC 0.03 H 0.02 H Immature Gran % 1 H 1 H Nucleated RBC % 0 0 PT INR APTT Fibrinogen Sodium 139 Potassium 4.6 Chloride 109 H Carbon Dioxide 22.4 Anion Gap 8 BUN 9 Creatinine 0.8 Estim Creat Clear Calc 270.8 eGFR > 60 BUN/Creatinine Ratio 11 L Glucose 124 H Calculated Osmolality 277 Calcium 8.0 L Corrected Calcium 9.1 Total Bilirubin 0.3 AST 13 ALT < 7 L Alkaline Phosphatase 95 Total Protein 4.7 L Albumin 2.6 L Globulin 2.1 L Albumin/Globulin Ratio 1.2 Blood Type O Positive Antibody Screen NEGATIVE Crossmatch See Detail Blood Bank Wristband ID Yes Blood Bank Comment FFP Ready 05/22/24 05/22/24 05/22/24 05:59 06:59 09:34 WBC 11.3 H 10.3 RBC 3.66 L 3.32 L Hgb 9.7 L 8.9 L Hct 29.5 L 26.0 L MCV 81 78 L MCH 26.5 26.8 MCHC 32.9 34.2 RDW Std Deviation 50.6 H 49.2 H Plt Count 187 D 200 Neut % (Auto) 79 73 Lymph % (Auto) 14 17 [place] % (Auto) 7 9 Eos % (Auto) 0 0 Baso % (Auto) 0 0 Neut # (Auto) 8.9 H 7.5 Lymph # (Auto) 1.6 1.8 [place] # (Auto) 0.7 0.9 H Eos # (Auto) 0.0 0.0 Baso # (Auto) 0.0 0.0 Immature Gran # (Auto) 0.06 H 0.05 H Absolute Nucleated RBC 0.02 H 0.02 H Immature Gran % 1 H 1 H Nucleated RBC % 0 0 PT 10.9 INR 1.0 APTT 28.3 Fibrinogen 490 H Sodium Potassium Chloride Carbon Dioxide Anion Gap BUN Creatinine Estim Creat Clear Calc eGFR BUN/Creatinine Ratio Glucose Calculated Osmolality Calcium Corrected Calcium Total Bilirubin AST ALT Alkaline Phosphatase Total Protein Albumin Globulin Albumin/Globulin Ratio Blood Type Antibody Screen Crossmatch Blood Bank Wristband ID Blood Bank Comment VIRTUALIZATION CONSULTANT - A/P Assessment and plan (1) Post-op bleeding: Status: Acute Assessment and plan: Nabila is a 23yo POD 0 s/p ex-lap (OR take-back) with evacuation of 1L of clotted hemoperitoneum and placement of FANNIE drain, POD 1 s/p life-saving supracervical hysterectomy for severe hemorrhage related to unresolvable uterine atony. She received 4u pRBCs in total between intra-op and post-op after hysterectomy, but did not have the anticipated rise in hemoglobin, so CT abdomen/pelvis was performed which showed large hemoperitoneum with possible bleeding from right side of pelvis. Ex-lap was significant for 1L clotted hemoperitoneum, but no source of bleeding was observed after extensive observation, and thus FANNIE drain was placed to observe for any further bleeding. During ex-lap she received another 2u pRBCs, 2u FFP, and albumin with calcium. She is currently in ICU bed for close observation. She notes her pain is much improved after surgery, presumably because the large clotted hemoperitoneum was evacuated. Vitals remain stable (RR 23-24), afebrile. She is awake and conversant Abdomen: soft, non-tender, non-distended, no rebound/guarding. Dry/clean/intact bandage overlying pfannenstiel incision. FANNIE drain in RLQ contains very minimal brownish fluid (residual surgicel effect). At 0200, just prior to surgery Hgb was 8.4. Since surgery Hgb has trended 9.7 (at 0600, after the 6th unit of pRBCs) to 8.9 (at 0930). Plt 200 Coags normal though fibrinogen has drifted to 490 from 755 (on 05/19). Creatinine stable at 0.8 Urine remains tea-colored, but urine output has had great increase since surgery (from approx 25-50ml/hour to over 100ml/hr) At this time, patient seems to be improved and stable. Greatly appreciate IM team assisting with management Ok to start some ice chips and clear liquids now with more of a diet later today if everything remains stable Will continue to closely monitor vitals, labs, UOP, FANNIE output Terri Castro MD (2) Hemoperitoneum: Status: Acute (3) Blood transfusion during current hospitalisation: Status: Acute (4) S/P emergency hysterectomy: Status: Acute (5) Atony of uterus with hemorrhage: Status: Acute Postoperative Procedures: Procedures Operation Date: 05/21/24 11:45 Actual Procedure Side Surgeon p in OB Not Applicable Terri Castro MD s Hysterectomy, Abdominal OB Not Applicable Terri Castro MD Operation Date: 05/22/24 01:40 Actual Procedure Side Surgeon p Exploratory Laparotomy, removal of blood clots and control of bleeding Not Applicable Terri Castro MD Time Spent With Patient Time: Total time spent is greater than 50% in coordination of care (as documented) at patient's floor/unit and/or counseling patient: Time with patient: less than 15 minutes
[2024-05-22] MEDS: oxyCODONE HCL 5 MG IR TAB PO (12:53)
--- NOTE | 2024-05-22 12:58 | PC.NURSE ---
Per Dr. Castro Pt. okay to have Ice water. Dr. traylor pt. was moved to [facility] and pain medication was given FANNIE drain 0 output.
[2024-05-22] MEDS: ceFAZolin/D5W 2 GM IV 2 GM/100 ML BAG IV ×2 (13:13→20:55)
--- NOTE | 2024-05-22 13:31 | PC.NURSE ---
Per Dr. Castro aware that pt. was given oxycodone and it was not helfpu, so States I am okay with you giving PRN Morphine that is ordered for PACU. No new order received at this time for morphine. Dr. Castro verbally verifies not further PRBCs to be given at this time.
--- NOTE | 2024-05-22 15:21 | ESPR_ITS ---
<Statement entered by Elana Hernandez MD - 05/22/24 16:09> I discussed with and supervised my co-resident involved in the care of this patient. I agree with the assessment and plan as documented above. Overnight CT showed hemoperitoneum so patient was taken to OR for evacuation of blood clot. FANNIE drain was placed. Patient recieved 2 units of PRBC, 2 FFP. Since then, blood pressure stable. Patient seen at bedside today, mentation improved. Endorses mild abdominal pain. Will continue to monitor BP and hold home anti- hypertensives. Elana Hernandez MD PGY-3 Documentation for date of: 05/22/24 Subjective Subjective Interval history: Patient patient was seen and examined at bedside. She is awake, alert and oriented, improved from yesterday. 3 units PRBC post transfusion H&H showed no improvement of Hb--stable around 8.5. Therefore, overnight patient underwent CT abdomen pelvis to to rule out any bleeding. Was positive for hemoperitoneum. Ex?lap, done with OB Dr. Castro and gen surg Dr. Alford, showed no definite source of bleeding however significant for 1 L clot. Patient received additional 2 units PRBC, 2 unit FFP, albumin, calcium after the laparotomy. FANNIE drain was also placed to observe for any further bleeding. Today patient's blood pressure is stable, systolic 120?130. States that pain has improved since time of delivery. No active bleeding noticed on physical exam. Hemoglobin this morning 8.9. IM team will continue to monitor patient and watch blood pressure/hemodynamic changes. Exam Vital Signs Temp Pulse Resp BP Pulse Ox O2 Del Method O2 Flow Rate 98.4 F 81 24 H 121/59 L 97 Room Air 3 05/22/24 12:05/22/24 12:05/22/24 07:00 05/22/24 12:05/22/24 12:05/22/24 12:05/22/24 06:05 Narrative Exam General: Obese young lady, cooperative, laying comfortably in bed HEENT: NCAT, No JVD noted. Mucosa moist. Pupils are equal and reactive to light bilaterally Cardiovascular: Normal S1 and S2. Regular rate and rhythm. Respiratory: Lungs difficult to auscultate due to body habitus Abdomen: Soft, nontender, not distended, normal bowel sounds. : No vaginal bleeding, Sofia catheter in place Skin: Warm to touch, dry, no rashes noted Musculoskeletal: No gross injuries. Able to move all 4 extremities. No pitting edema Neuro: Alert and oriented x3. No focal neuro deficits. Psych: Normal affect and mood Objective Labs 05/22/24 19:10 05/22/24 19:10 Labs: Laboratory Results - last 24 hr 05/19/24 05/21/24 05/21/24 12:30 17:01 20:26 WBC 15.2 H 12.6 H RBC 3.22 L 3.09 L Hgb 8.5 L D 8.3 L Hct 25.9 L 24.4 L MCV 80 79 L MCH 26.4 26.9 MCHC 32.8 34.0 RDW Std Deviation 47.4 H 45.8 Plt Count 258 236 Neut % (Auto) 88 H 81 H Lymph % (Auto) 8 L 13 [place] % (Auto) 4 6 Eos % (Auto) 0 0 Baso % (Auto) 0 0 Neut # (Auto) 13.4 H 10.2 H Lymph # (Auto) 1.2 1.6 [place]y # (Auto) 0.6 0.7 Eos # (Auto) 0.0 0.0 Baso # (Auto) 0.0 0.0 Immature Gran # (Auto) 0.06 H 0.07 H Absolute Nucleated RBC 0.03 H 0.03 H Immature Gran % 0 1 H Nucleated RBC % 0 0 PT 11.3 INR 1.0 APTT 30.7 Fibrinogen 574 H Sodium 137 Potassium 4.2 Chloride 108 H Carbon Dioxide 19.6 L Anion Gap 9 BUN 9 Creatinine 0.7 Estim Creat Clear Calc 309.5 eGFR > 60 BUN/Creatinine Ratio 13 Glucose 128 H Calculated Osmolality 274 L Calcium 7.8 L Corrected Calcium 8.9 Total Bilirubin 0.6 AST 12 ALT < 7 L Alkaline Phosphatase 113 D Total Protein 4.9 L Albumin 2.6 L D Globulin 2.3 Albumin/Globulin Ratio 1.1 L Blood Type O Positive Antibody Screen NEGATIVE Crossmatch See Detail Blood Bank Wristband ID Yes Blood Bank Comment 05/22/24 05/22/24 05/22/24 00:28 02:02 05:59 WBC 12.4 H 11.3 H RBC 3.32 L 3.66 L Hgb 8.6 L 8.4 L 9.7 L Hct 25.2 L 26.1 L 29.5 L MCV 76 L 81 MCH 25.9 26.5 MCHC 34.1 32.9 RDW Std Deviation 48.0 H 50.6 H Plt Count 106 L D 187 D Neut % (Auto) 74 79 Lymph % (Auto) 17 14 [place]y % (Auto) 9 7 Eos % (Auto) 0 0 Baso % (Auto) 0 0 Neut # (Auto) 9.1 H 8.9 H Lymph # (Auto) 2.1 1.6 Emery # (Auto) 1.1 H 0.7 Eos # (Auto) 0.0 0.0 Baso # (Auto) 0.0 0.0 Immature Gran # (Auto) 0.07 H 0.06 H Absolute Nucleated RBC 0.02 H 0.02 H Immature Gran % 1 H 1 H Nucleated RBC % 0 0 PT INR APTT Fibrinogen Sodium 139 Potassium 4.6 Chloride 109 H Carbon Dioxide 22.4 Anion Gap 8 BUN 9 Creatinine 0.8 Estim Creat Clear Calc 270.8 eGFR > 60 BUN/Creatinine Ratio 11 L Glucose 124 H Calculated Osmolality 277 Calcium 8.0 L Corrected Calcium 9.1 Total Bilirubin 0.3 AST 13 ALT < 7 L Alkaline Phosphatase 95 Total Protein 4.7 L Albumin 2.6 L Globulin 2.1 L Albumin/Globulin Ratio 1.2 Blood Type O Positive Antibody Screen NEGATIVE Crossmatch See Detail Blood Bank Wristband ID Yes Blood Bank Comment FFP Ready 05/22/24 05/22/24 06:59 09:34 WBC 10.3 RBC 3.32 L Hgb 8.9 L Hct 26.0 L MCV 78 L MCH 26.8 MCHC 34.2 RDW Std Deviation 49.2 H Plt Count 200 Neut % (Auto) 73 Lymph % (Auto) 17 [place] % (Auto) 9 Eos % (Auto) 0 Baso % (Auto) 0 Neut # (Auto) 7.5 Lymph # (Auto) 1.8 [place]y # (Auto) 0.9 H Eos # (Auto) 0.0 Baso # (Auto) 0.0 Immature Gran # (Auto) 0.05 H Absolute Nucleated RBC 0.02 H Immature Gran % 1 H Nucleated RBC % 0 PT 10.9 INR 1.0 APTT 28.3 Fibrinogen 490 H Sodium Potassium Chloride Carbon Dioxide Anion Gap BUN Creatinine Estim Creat Clear Calc eGFR BUN/Creatinine Ratio Glucose Calculated Osmolality Calcium Corrected Calcium Total Bilirubin AST ALT Alkaline Phosphatase Total Protein Albumin Globulin Albumin/Globulin Ratio Blood Type Antibody Screen Crossmatch Blood Bank Wristband ID Blood Bank Comment Quality Measures Quality Measures none Assessment & Plan Assessment Current Active Medications: Generic Name Dose Route Start Last Admin Trade Name Freq PRN Reason Stop Dose Admin Hydrocodone Bitart/Acetaminophen 1 tab 05/21/24 16:17 Hydrocodone/Apap 5/325 Tablet PO 05/26/24 16:16 Q4HR PRN Patient rated pain 7 to 8 Hydrocodone Bitart/Acetaminophen 2 tab 05/21/24 16:17 Hydrocodone/Apap 5/325 Tablet PO 05/26/24 16:16 Q6HR PRN Patient rated pain 9 to 10 Diphtheria/Tetanus/Acell Pertussis 0.5 ml 05/21/24 16:17 Diphth,Pertuss(Acell),Tet Vac 0.5 Ml Vial IMi X1 PRN SEE COMMENTS Fentanyl Citrate 50 mcg 05/22/24 04:36 Fentanyl Cit Inj 50 Mcg/Ml Amp 2ml IV Q5M PRN PAIN SCALE 4-10(Mod-Sev Hydralazine HCl 5 mg 05/22/24 04:36 Hydralazine Inj 20 Mg/Ml Vial IV Q20M PRN SEE COMMENTS Acetaminophen 1,000 mg in 100 mls @ 250 mls/hr 05/21/24 15:57 05/21/24 16:05 Ofirmev Inj IV 250 mls/hr Q6H MILTON Administration Cefazolin Sodium 2 gm in 100 mls @ 100 mls/hr 05/21/24 16:15 05/22/24 13:13 Ancef 2gm Ivpb IV 05/22/24 16:00 100 mls/hr Q8HR MILTON Administration Sodium Chloride 2,000 mls @ 500 mls/hr 05/22/24 04:37 Ns IV .Q4H PRN Blood Pressure - Low Measles/Mumps/Rubella Vaccine Live 0.5 ml 05/21/24 16:17 Measles, Mumps & Rubella Vacc 0.5 Ml Vial SCi X1 PRN if non-immune or equivocal Midazolam HCl 1 mg 05/22/24 04:36 Midazolam Inj 1 Mg/Ml Vial 2 Ml IV 05/23/24 04:35 Q5M PRN ANXIETY Morphine Sulfate 2 mg 05/22/24 04:36 05/22/24 13:39 Morphine Sulf Inj 10 Mg/Ml Vial IVP 2 mg Q10M PRN Administration PAIN SCALE 4-10(Mod-Sev Ondansetron HCl 4 mg 05/22/24 04:36 Ondansetron Inj 2 Mg/Ml Inj 2 Ml IV X1 PRN NAUSEA OR VOMITING Oxycodone HCl 5 mg 05/21/24 16:52 05/22/24 12:53 Oxycodone Hcl 5 Mg Ir Tab PO 05/26/24 16:51 5 mg Q6HR PRN Administration PAIN SCALE 7-10 (Severe Simethicone 80 mg 05/21/24 16:17 Simethicone 80 Mg Chew PO 06/20/24 16:16 Q4HR PRN GAS Plan Nabila Mahmood is 23 yr female history of morbid obesity, Hyperlipidemia, fatty liver disease who is day 3. Internal medicine team was consulted for assessment of patient due to hypotension readings. She will be transferred to telemetry for closer monitoring. #Shock-resolved Most likely hemorrhagic due to acute blood loss approximately 2.5 L post delivery. Patient also has low-grade fever, elevated WBC 15. Possibly distributive shock as well however WBCs may be reactive as patient just had surgery. She is on cefazolin post surgery prophylaxis. -Patient to be resuscitated per sepsis protocol at 30 cc/kg -s/p 4 unit PRBC, 2 unit FFP ? Continue monitoring blood pressure with MAP goal greater than 65 #Hemoperitoneum After no improvement seen on H&H posttransfusion, patient was taken for CT abdomen pelvis which showed bleeding and peritoneum. Ex?lap, done with OB Dr. Castro and gen surg Dr. Alford, showed no definite source of bleeding however significant for 1 L clot. -Monitor for any significant bleeding in FANNIE drain -Daily CBC #s/p day 3 #Hysterectomy #Hx hyperlipidemia #Obesity class III Health maintenance: Dispo: tele pt in ICU for hemodynamic monitoring DVT prophylaxis: not indicated CODE STATUS: Full code Diet: Regular The patient's management plan was discussed with my attending physician Dr. Kiser and senior Dr. Hernandez. Rody Ann, PGY-1 Attending Provider Attestation/Addendum Face to face evaluation was performed by me. I have personally seen and examined the patient. I discussed the assessment and plan with the entire medicine team. I reviewed available medical records, imaging studies, laboratory results. I agree with the above subjective data, objective findings, assessment and plan except as corrected by me or noted below Acute blood loss anemia Hemorrhagic shock Hypotension S.p hysterectomy Hx of Prediabetes Morbid obesity HLD Postoperative fever Pt underwent hysterectomy due to unresolvable uterine atony and hemorrhaging on 2 2/4 am underwent another procedure hematoma evacuation- no active bleeding found Fever resolved , monitor closely, BP is better Discussed with Dr Castro, Medicine team will be following as consulting team along
[2024-05-22] MEDS: FUROSEMIDE INJ 10 MG/ML 4ML VIAL 40 MG IVP (16:59)
[2024-05-22 19:27] LABS: Basophils % (Auto) 0 % (0-2.5); Eosinophils % (Auto) 0 % (0-10); Hematocrit 27.2 % (36.0-46.0); Hemoglobin 9.1 g/dL (12.0-16.0); Immature Granulocytes % (Auto) 1 % (0-0); Immature Granulocytes Auto 0.06 Thou/mm3 (0.00-0.00); Lymphocytes # (Auto) 2.6 Thou/mm3 (1.0-4.8); Lymphocytes % (Auto) 27 % (10-50); Mean Corpuscular HGB Conc 33.5 g/dl (31.0-37.0); Mean Corpuscular Hemoglobin 26.4 pg (25.0-35.0); Mean Corpuscular Volume 79 fL (80-100); Monocytes % (Auto) 10 % (0-12); Neutrophils # (Auto) 6.2 Thou/mm3 (1.8-7.7); Neutrophils % (Auto) 63 % (37-80); Nucleated Red Blood Cell # 0.03 Thou/mm3 (0.00-0.00); Nucleated Red Blood Cell % 0 /100 WBC (0); Platelet Count 204 Thou/mm3 (140-440); RDW Standard Deviation 50.1 fL (36.4-46.3); Red Blood Count 3.45 Miln/mm3 (4.00-5.20); White Blood Count 9.9 Thou/mm3 (3.6-11.0)
--- NOTE | 2024-05-22 19:27 | ESPR_ITS ---
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 Labs 05/22/24 09:34 05/22/24 02:02 Labs: Laboratory Results - last 24 hr 05/19/24 05/21/24 05/22/24 12:30 20:26 00:28 WBC 12.6 H 12.4 H RBC 3.09 L 3.32 L Hgb 8.3 L 8.6 L Hct 24.4 L 25.2 L MCV 79 L 76 L MCH 26.9 25.9 MCHC 34.0 34.1 RDW Std Deviation 45.8 48.0 H Plt Count 236 106 L D Neut % (Auto) 81 H 74 Lymph % (Auto) 13 17 [place] % (Auto) 6 9 Eos % (Auto) 0 0 Baso % (Auto) 0 0 Neut # (Auto) 10.2 H 9.1 H Lymph # (Auto) 1.6 2.1 [place] # (Auto) 0.7 1.1 H Eos # (Auto) 0.0 0.0 Baso # (Auto) 0.0 0.0 Immature Gran # (Auto) 0.07 H 0.07 H Absolute Nucleated RBC 0.03 H 0.02 H Immature Gran % 1 H 1 H Nucleated RBC % 0 0 PT INR APTT Fibrinogen Sodium Potassium Chloride Carbon Dioxide Anion Gap BUN Creatinine Estim Creat Clear Calc eGFR BUN/Creatinine Ratio Glucose Calculated Osmolality Calcium Corrected Calcium Total Bilirubin AST ALT Alkaline Phosphatase Total Protein Albumin Globulin Albumin/Globulin Ratio Blood Type O Positive Antibody Screen NEGATIVE Crossmatch See Detail Blood Bank Wristband ID Yes Blood Bank Comment 05/22/24 05/22/24 05/22/24 02:02 05:59 06:59 WBC 11.3 H RBC 3.66 L Hgb 8.4 L 9.7 L Hct 26.1 L 29.5 L MCV 81 MCH 26.5 MCHC 32.9 RDW Std Deviation 50.6 H Plt Count 187 D Neut % (Auto) 79 Lymph % (Auto) 14 [place] % (Auto) 7 Eos % (Auto) 0 Baso % (Auto) 0 Neut # (Auto) 8.9 H Lymph # (Auto) 1.6 [place] # (Auto) 0.7 Eos # (Auto) 0.0 Baso # (Auto) 0.0 Immature Gran # (Auto) 0.06 H Absolute Nucleated RBC 0.02 H Immature Gran % 1 H Nucleated RBC % 0 PT 10.9 INR 1.0 APTT 28.3 Fibrinogen 490 H Sodium 139 Potassium 4.6 Chloride 109 H Carbon Dioxide 22.4 Anion Gap 8 BUN 9 Creatinine 0.8 Estim Creat Clear Calc 270.8 eGFR > 60 BUN/Creatinine Ratio 11 L Glucose 124 H Calculated Osmolality 277 Calcium 8.0 L Corrected Calcium 9.1 Total Bilirubin 0.3 AST 13 ALT < 7 L Alkaline Phosphatase 95 Total Protein 4.7 L Albumin 2.6 L Globulin 2.1 L Albumin/Globulin Ratio 1.2 Blood Type O Positive Antibody Screen NEGATIVE Crossmatch See Detail Blood Bank Wristband ID Yes Blood Bank Comment FFP Ready 05/22/24 09:34 WBC 10.3 RBC 3.32 L Hgb 8.9 L Hct 26.0 L MCV 78 L MCH 26.8 MCHC 34.2 RDW Std Deviation 49.2 H Plt Count 200 Neut % (Auto) 73 Lymph % (Auto) 17 [place] % (Auto) 9 Eos % (Auto) 0 Baso % (Auto) 0 Neut # (Auto) 7.5 Lymph # (Auto) 1.8 [place] # (Auto) 0.9 H Eos # (Auto) 0.0 Baso # (Auto) 0.0 Immature Gran # (Auto) 0.05 H Absolute Nucleated RBC 0.02 H Immature Gran % 1 H Nucleated RBC % 0 PT INR APTT Fibrinogen Sodium Potassium Chloride Carbon Dioxide Anion Gap BUN Creatinine Estim Creat Clear Calc eGFR BUN/Creatinine Ratio Glucose Calculated Osmolality Calcium Corrected Calcium Total Bilirubin AST ALT Alkaline Phosphatase Total Protein Albumin Globulin Albumin/Globulin Ratio Blood Type Antibody Screen Crossmatch Blood Bank Wristband ID Blood Bank Comment 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 She received 4u pRBCs in total between intra-op and post-op after hysterectomy, but did not have the anticipated rise in hemoglobin, so CT abdomen/pelvis was performed which showed large hemoperitoneum with possible bleeding from right side of pelvis. Ex-lap was significant for 1L clotted hemoperitoneum, but no source of bleeding was observed after extensive observation, and thus FANNIE drain was placed to observe for any further bleeding. During ex-lap she received another 2u pRBCs, 2u FFP, and albumin with calcium. She was transferred from ICU to tele room with continued close observation. She notes her pain remains improved after surgery, just has some expected incisional discomfort. She feels more lively now. is at bedside with her. She doesn't have an appetite yet, just thirsty. Not yet passing gas. Not yet ambulating. Sofia in place draining clear urine. Vitals remain stable, afebrile. She is awake and conversant Abdomen: soft, non-tender, non-distended, no rebound/guarding. Dry/clean/intact prineo bandage overlying pfannenstiel incision. FANNIE drain in RLQ contains very minimal brownish fluid (residual surgicel effect)- no accumulation at all over the course of today. Extremities: no pain with palpation of calves, 1+ BLE edema, SCDs are on but not functioning At 0200, just prior to surgery Hgb was 8.4. Since surgery Hgb has trended 9.7 (at 0600, after the 6th unit of pRBCs) to 8.9 (at 0930). Plt 200 Coags normal though fibrinogen has drifted to 490 from 755 (on 05/19). Creatinine stable at 0.8 Urine is now very clear and robust in output Patient remains improved and stable. Greatly appreciate IM team assisting with management Repeat labs ordered: CBC, CMP, coags. If stable, will stretch out to daily labs. Continue Ancef 2g IV q8hr until 24hr post-op Ok to begin clear liquid diet. Will await passage of gas before regular diet since she is at risk for ileus having had 2 intra-abdominal surgeries Spoke with RN regarding activating SCDs since will not start any pharmacologic anti-coagulation at this time given recent bleeding. Also discussed obtaining IS and having patient use it hourly. I counseled patient regarding this as well. Ok to have her sit in chair tonight if she would like to, otherwise will encourage ambulation tomorrow Oxycodone 5mg PO Q6hr prn mild pain vs morphine 2g IV q2hr for more severe pain. Will hold off on Toradol given recent bleeding. Will continue to closely monitor vitals, labs, UOP, FANNIE output Terri Castro MD (2) Hemoperitoneum: Status: Acute (3) Blood transfusion during current hospitalisation: Status: Acute (4) S/P emergency hysterectomy: Status: Acute (5) Atony of uterus with hemorrhage: Status: Acute Postoperative Procedures: Procedures Operation Date: 05/21/24 11:45 Actual Procedure Side Surgeon p in OB Not Applicable Terri Castro MD s Hysterectomy, Abdominal OB Not Applicable Terri Castro MD Operation Date: 05/22/24 01:40 Actual Procedure Side Surgeon p Exploratory Laparotomy, removal of blood clots and control of bleeding Not Applicable Terri Castro MD Time Spent With Patient Time: Total time spent is greater than 50% in coordination of care (as documented) at patient's floor/unit and/or counseling patient: Time with patient: less than 15 minutes
[2024-05-22 19:44] LABS: Partial Thromboplastin Time 25.9 Seconds (22.0-36.0); Prothrombin Time 10.8 Seconds (9.0-12.2)
[2024-05-22 19:50] LABS: Fibrinogen 620 mg/dL (175-375)
[2024-05-22 19:58] LABS: Alanine Aminotransferase 9 U/L (10-49); Albumin/Globulin Ratio 1.3 (1.2-2.2); Alkaline Phosphatase 82 U/L (46-116); Anion Gap 9 (7-16); Aspartate Amino Transferase 13 U/L (0-34); BUN/Creatinine Ratio 14 Ratio (12-20); Bilirubin,Total 0.3 mg/dL (0.3-1.2); Blood Urea Nitrogen 10 mg/dL (9-23); Calcium 8.1 mg/dL (8.3-10.6); Calcium (Corrected) 8.9 mg/dL (8.5-10.1); Carbon Dioxide 23.8 mMol/L (20.0-31.0); Chloride 106 mMol/L (98-107); Creatinine (Component) 0.7 mg/dL (0.6-1.3); Estimated Creatinine Clearance 189.7 mL/min (>60); Globulin 2.3 gm/dL (2.3-3.5); Glucose 86 mg/dL (74-106); Osmolality,Calculated 275 (275-295); Potassium 4.4 mMol/L (3.4-5.1); Sodium 139 mMol/L (136-145); Total Protein 5.3 gm/dL (5.7-8.2); eGFR > 60 See Note
[2024-05-23] VITALS (12 sets, daily range): BP systolic 112–149; BP diastolic 68–95; PULSE 77–122; RESP 12–45; TEMP 36.1–37.5; O2SAT 90–99; BMI 43.4; BMI 43.2
[2024-05-23] MEDS: oxyCODONE HCL 5 MG IR TAB PO (01:02)
[2024-05-23] MEDS: MORPHINE SULF INJ 10 MG/ML VIAL 2 MG IVP ×6 (02:50→23:40)
[2024-05-23 06:12] LABS: Basophils % (Auto) 0 % (0-2.5); Eosinophils % (Auto) 0 % (0-10); Hematocrit 23.6 % (36.0-46.0); Immature Granulocytes % (Auto) 1 % (0-0); Immature Granulocytes Auto 0.08 Thou/mm3 (0.00-0.00); Lymphocytes # (Auto) 2.3 Thou/mm3 (1.0-4.8); Lymphocytes % (Auto) 25 % (10-50); Mean Corpuscular HGB Conc 33.9 g/dl (31.0-37.0); Mean Corpuscular Hemoglobin 26.8 pg (25.0-35.0); Mean Corpuscular Volume 79 fL (80-100); Monocytes # (Auto) 0.9 Thou/mm3 (0.0-0.8); Monocytes % (Auto) 10 % (0-12); Neutrophils # (Auto) 5.9 Thou/mm3 (1.8-7.7); Neutrophils % (Auto) 64 % (37-80); Nucleated Red Blood Cell # 0.03 Thou/mm3 (0.00-0.00); Nucleated Red Blood Cell % 0 /100 WBC (0); Platelet Count 182 Thou/mm3 (140-440); RDW Standard Deviation 49.9 fL (36.4-46.3); Red Blood Count 2.99 Miln/mm3 (4.00-5.20); White Blood Count 9.2 Thou/mm3 (3.6-11.0)
[2024-05-23] MEDS: ceFAZolin/D5W 2 GM IV 2 GM/100 ML BAG IV (06:31)
[2024-05-23 07:14] LABS: Alanine Aminotransferase < 7 U/L (10-49); Albumin, Serum 2.8 gm/dL (3.5-5.0); Albumin/Globulin Ratio 1.3 (1.2-2.2); Alkaline Phosphatase 77 U/L (46-116); Anion Gap 10 (7-16); Aspartate Amino Transferase 11 U/L (0-34); BUN/Creatinine Ratio 20 Ratio (12-20); Bilirubin,Total 0.3 mg/dL (0.3-1.2); Blood Urea Nitrogen 12 mg/dL (9-23); Calcium 7.9 mg/dL (8.3-10.6); Calcium (Corrected) 8.9 mg/dL (8.5-10.1); Carbon Dioxide 24.1 mMol/L (20.0-31.0); Chloride 104 mMol/L (98-107); Creatinine (Component) 0.6 mg/dL (0.6-1.3); Estimated Creatinine Clearance 184.3 mL/min (>60); Globulin 2.2 gm/dL (2.3-3.5); Glucose 98 mg/dL (74-106); Osmolality,Calculated 275 (275-295); Potassium 3.6 mMol/L (3.4-5.1); Sodium 138 mMol/L (136-145); eGFR > 60 See Note
[2024-05-23 09:06] LABS: Basophils % (Auto) 0 % (0-2.5); Eosinophils % (Auto) 0 % (0-10); Immature Granulocytes % (Auto) 1 % (0-0); Immature Granulocytes Auto 0.04 Thou/mm3 (0.00-0.00); Lymphocytes % (Auto) 23 % (10-50); Mean Corpuscular HGB Conc 33.3 g/dl (31.0-37.0); Mean Corpuscular Hemoglobin 26.3 pg (25.0-35.0); Mean Corpuscular Volume 79 fL (80-100); Monocytes # (Auto) 0.8 Thou/mm3 (0.0-0.8); Monocytes % (Auto) 9 % (0-12); Neutrophils # (Auto) 5.8 Thou/mm3 (1.8-7.7); Neutrophils % (Auto) 67 % (37-80); Nucleated Red Blood Cell # 0.03 Thou/mm3 (0.00-0.00); Nucleated Red Blood Cell % 0 /100 WBC (0); Platelet Count 182 Thou/mm3 (140-440); RDW Standard Deviation 50.1 fL (36.4-46.3); Red Blood Count 3.04 Miln/mm3 (4.00-5.20); White Blood Count 8.6 Thou/mm3 (3.6-11.0)
--- NOTE | 2024-05-23 09:23 | PD.GYNPROG ---
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 Labs 05/23/24 08:20 05/23/24 05:06 Labs: Laboratory Results - last 24 hr 05/19/24 05/22/24 05/22/24 12:30 09:34 19:10 WBC 10.3 9.9 RBC 3.32 L 3.45 L Hgb 8.9 L 9.1 L Hct 26.0 L 27.2 L MCV 78 L 79 L MCH 26.8 26.4 MCHC 34.2 33.5 RDW Std Deviation 49.2 H 50.1 H Plt Count 200 204 Neut % (Auto) 73 63 Lymph % (Auto) 17 27 [place] % (Auto) 9 10 Eos % (Auto) 0 0 Baso % (Auto) 0 0 Neut # (Auto) 7.5 6.2 Lymph # (Auto) 1.8 2.6 [place] # (Auto) 0.9 H 1.0 H Eos # (Auto) 0.0 0.0 Baso # (Auto) 0.0 0.0 Immature Gran # (Auto) 0.05 H 0.06 H Absolute Nucleated RBC 0.02 H 0.03 H Immature Gran % 1 H 1 H Nucleated RBC % 0 0 PT 10.8 INR 1.0 APTT 25.9 Fibrinogen 620 H* Sodium 139 Potassium 4.4 Chloride 106 Carbon Dioxide 23.8 Anion Gap 9 BUN 10 Creatinine 0.7 Estim Creat Clear Calc 189.7 eGFR > 60 BUN/Creatinine Ratio 14 Glucose 86 Calculated Osmolality 275 Calcium 8.1 L Corrected Calcium 8.9 Total Bilirubin 0.3 AST 13 ALT 9 L Alkaline Phosphatase 82 Total Protein 5.3 L Albumin 3.0 L Globulin 2.3 Albumin/Globulin Ratio 1.3 Crossmatch See Detail 05/23/24 05/23/24 05:06 08:20 WBC 9.2 8.6 RBC 2.99 L 3.04 L Hgb 8.0 L 8.0 L Hct 23.6 L 24.0 L MCV 79 L 79 L MCH 26.8 26.3 MCHC 33.9 33.3 RDW Std Deviation 49.9 H 50.1 H Plt Count 182 182 Neut % (Auto) 64 67 Lymph % (Auto) 25 23 [place] % (Auto) 10 9 Eos % (Auto) 0 0 Baso % (Auto) 0 0 Neut # (Auto) 5.9 5.8 Lymph # (Auto) 2.3 2.0 [place] # (Auto) 0.9 H 0.8 Eos # (Auto) 0.0 0.0 Baso # (Auto) 0.0 0.0 Immature Gran # (Auto) 0.08 H 0.04 H Absolute Nucleated RBC 0.03 H 0.03 H Immature Gran % 1 H 1 H Nucleated RBC % 0 0 PT INR APTT Fibrinogen Sodium 138 Potassium 3.6 D Chloride 104 Carbon Dioxide 24.1 Anion Gap 10 BUN 12 Creatinine 0.6 Estim Creat Clear Calc 184.3 eGFR > 60 BUN/Creatinine Ratio 20 Glucose 98 Calculated Osmolality 275 Calcium 7.9 L Corrected Calcium 8.9 Total Bilirubin 0.3 AST 11 ALT < 7 L Alkaline Phosphatase 77 Total Protein 5.0 L Albumin 2.8 L Globulin 2.2 L Albumin/Globulin Ratio 1.3 Crossmatch 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 She received 4u pRBCs in total between intra-op and post-op after hysterectomy, but did not have the anticipated rise in hemoglobin, so CT abdomen/pelvis was performed which showed large hemoperitoneum with possible bleeding from right side of pelvis. Ex-lap was significant for 1L clotted hemoperitoneum, but no source of bleeding was observed after extensive observation, and thus FANNIE drain was placed to observe for any further bleeding. During ex-lap she received another 2u pRBCs, 2u FFP, and albumin with calcium. Since last night she states she has had a bit more pain because the nurses re-positioned her and the movement caused abdominal discomfort after. She has been declining to try to ambulate, but plan is to obtain abdominal binders to place and then get in wheelchair and go downstairs to hopefully have her mom bring baby and have a visit. She denies chest pain and SOB. is at bedside with her. She doesn't have much appetite yet, but has been tolerating clear liquids without nausea. Not yet passing gas. Sofia in place draining yellow urine. Vitals remain stable, afebrile. She is awake and conversant Abdomen: soft, appropriately tender to palpation around incision, non-distended, no rebound/guarding. Dry/clean/intact prineo bandage overlying pfannenstiel incision. No erythema/induration/drainage. FANNIE drain in RLQ contains very minimal brownish fluid (residual surgicel effect)- no accumulation at all thus far Extremities: no pain with palpation of calves, 1+ BLE edema, SCDs are on and functioning Prior to 2nd surgery Hgb was 8.4. Since surgery Hgb has trended 9.7 (right after the 6th unit of pRBCs) to 8.9 (at 0930 on 05/22) to 8 (at 0500 on 05/23) repeated and still 8 (at 0820 on 05/23) Plt 182 Coags normal, fibrinogen increased to 620 Creatinine improving, 0.6 Urine output approx 100ml/hr Patient remains improved and stable, now working on post-op milestones. Greatly appreciate IM team assisting with management Discontinue Ancef now that >24hr post-op Continue clear liquid diet. Will await passage of gas before regular diet since she is at risk for ileus having had 2 intra-abdominal surgeries Encourage ambulation, use SCDs when in bed Encourage use of IS Oxycodone 5mg PO Q6hr prn mild pain vs morphine 2g IV q2hr for more severe pain. Will continue to closely monitor vitals, labs, UOP, FANNIE output Continue daily labs. (2) Hemoperitoneum: Status: Acute (3) Blood transfusion during current hospitalisation: Status: Acute (4) S/P emergency hysterectomy: Status: Acute (5) Atony of uterus with hemorrhage: Status: Acute Postoperative Procedures: Procedures Operation Date: 05/21/24 11:45 Actual Procedure Side Surgeon p in OB Not Applicable Terri Castro MD s Hysterectomy, Abdominal OB Not Applicable Terri Castro MD Operation Date: 05/22/24 01:40 Actual Procedure Side Surgeon p Exploratory Laparotomy, removal of blood clots and control of bleeding Not Applicable Terri Castro MD Time Spent With Patient Time: Total time spent is greater than 50% in coordination of care (as documented) at patient's floor/unit and/or counseling patient: Time with patient: less than 15 minutes
--- NOTE | 2024-05-23 10:07 | PC.SS ---
Nabila Mahmood is 23-year-old female admitted to [facility] for Post op Complication. SS conducted bedside contact with the patient to complete initial assessment and to discuss discharge planning.? Patient confirmed demographic information. Patient identifies her mother Keli Torres [phone] as her surrogate decision maker. Patient resides at home with her mother. Pt states she is able to complete all ADL?s independently, no need for any source of DME. Pt reports not having a PCP pt reports going to [facility] for any needs. Pts pharmacy of choice is [facility]. Pts life partner Prince Sol [phone] will provide transportation upon DC. No further intervention required at this time, renal social worker would be available to address any further concerns. DC Plan: Home Contact: mother Keil Torres [phone] PCP: None
--- NOTE | 2024-05-23 15:10 | ESPR_ITS ---
<Statement entered by Elana Hernandez MD - 05/23/24 16:03> I discussed with and supervised my co-resident involved in the care of this patient. I agree with the assessment and plan as documented above. Patient seen at bedside, sitting upright in chair. Doing well. Mild abdominal pain. Blood pressure stable. Internal medicine will sign off at this time. Thank you for the consult. Please feel free to reach out if any questions. Elana Hernandez MD PGY-3 Documentation for date of: 05/23/24 Subjective Subjective Interval history: Patient patient was seen and examined at bedside. She is awake, alert and oriented, improved from yesterday. Hb--stable around 8-9. FANNIE drain in place with minimal collection noticed. She is denying any SOB but endorses abdominal pain at surgical site. Patient having adequate urine output and saturating 97% on 2 L nasal cannula. Tolerating clear liquid diet. Today patient's blood pressure is stable, systolic 120?130. No active bleeding noticed on physical exam. IM team will sign off for now as patient has remained stable and improving. Exam Vital Signs Temp Pulse Resp BP Pulse Ox O2 Del Method O2 Flow Rate 96.9 F 94 19 144/70 H 96 Nasal Cannula 2 05/23/24 12:00 05/23/24 12:00 05/23/24 12:00 05/23/24 12:00 05/23/24 12:00 05/23/24 12:00 05/23/24 12:00 Narrative Exam General: Obese young lady, cooperative, laying comfortably in bed, day 3 HEENT: NCAT, No JVD noted. Mucosa moist. Pupils are equal and reactive to light bilaterally Cardiovascular: Normal S1 and S2. Regular rate and rhythm. Respiratory: Lungs difficult to auscultate due to body habitus Abdomen: Soft, nontender, not distended, normal bowel sounds. : No vaginal bleeding, Sofia catheter in place, FANNIE drain in place minimal fluid collected Skin: Warm to touch, dry, no rashes noted Musculoskeletal: No gross injuries. Able to move all 4 extremities. No pitting edema Neuro: Alert and oriented x3. No focal neuro deficits. Psych: Normal affect and mood Objective Labs 05/23/24 08:20 05/23/24 05:06 Labs: Laboratory Results - last 24 hr 05/22/24 05/23/24 05/23/24 19:10 05:06 08:20 WBC 9.9 9.2 8.6 RBC 3.45 L 2.99 L 3.04 L Hgb 9.1 L 8.0 L 8.0 L Hct 27.2 L 23.6 L 24.0 L MCV 79 L 79 L 79 L MCH 26.4 26.8 26.3 MCHC 33.5 33.9 33.3 RDW Std Deviation 50.1 H 49.9 H 50.1 H Plt Count 204 182 182 Neut % (Auto) 63 64 67 Lymph % (Auto) 27 25 23 [place] % (Auto) 10 10 9 Eos % (Auto) 0 0 0 Baso % (Auto) 0 0 0 Neut # (Auto) 6.2 5.9 5.8 Lymph # (Auto) 2.6 2.3 2.0 [place] # (Auto) 1.0 H 0.9 H 0.8 Eos # (Auto) 0.0 0.0 0.0 Baso # (Auto) 0.0 0.0 0.0 Immature Gran # (Auto) 0.06 H 0.08 H 0.04 H Absolute Nucleated RBC 0.03 H 0.03 H 0.03 H Immature Gran % 1 H 1 H 1 H Nucleated RBC % 0 0 0 PT 10.8 INR 1.0 APTT 25.9 Fibrinogen 620 H* Sodium 139 138 Potassium 4.4 3.6 D Chloride 106 104 Carbon Dioxide 23.8 24.1 Anion Gap 9 10 BUN 10 12 Creatinine 0.7 0.6 Estim Creat Clear Calc 189.7 184.3 eGFR > 60 > 60 BUN/Creatinine Ratio 14 20 Glucose 86 98 Calculated Osmolality 275 275 Calcium 8.1 L 7.9 L Corrected Calcium 8.9 8.9 Total Bilirubin 0.3 0.3 AST 13 11 ALT 9 L < 7 L Alkaline Phosphatase 82 77 Total Protein 5.3 L 5.0 L Albumin 3.0 L 2.8 L Globulin 2.3 2.2 L Albumin/Globulin Ratio 1.3 1.3 Quality Measures Quality Measures none Assessment & Plan Assessment Current Active Medications: Generic Name Dose Route Start Last Admin Trade Name Freq PRN Reason Stop Dose Admin Hydrocodone Bitart/Acetaminophen 1 tab 05/21/24 16:17 Hydrocodone/Apap 5/325 Tablet PO 05/26/24 16:16 Q4HR PRN Patient rated pain 7 to 8 Hydrocodone Bitart/Acetaminophen 2 tab 05/21/24 16:17 Hydrocodone/Apap 5/325 Tablet PO 05/26/24 16:16 Q6HR PRN Patient rated pain 9 to 10 Diphtheria/Tetanus/Acell Pertussis 0.5 ml 05/21/24 16:17 Diphth,Pertuss(Acell),Tet Vac 0.5 Ml Vial IMi X1 PRN SEE COMMENTS Sodium Chloride 2,000 mls @ 500 mls/hr 05/22/24 04:37 Ns IV .Q4H PRN Blood Pressure - Low Measles/Mumps/Rubella Vaccine Live 0.5 ml 05/21/24 16:17 Measles, Mumps & Rubella Vacc 0.5 Ml Vial SCi X1 PRN if non-immune or equivocal Morphine Sulfate 2 mg 05/22/24 19:38 05/23/24 12:56 Morphine Sulf Inj 10 Mg/Ml Vial IVP 05/27/24 19:59 2 mg Q2HR PRN Administration PAIN SCALE 4-10(Mod-Sev Simethicone 80 mg 05/21/24 16:17 Simethicone 80 Mg Chew PO 06/20/24 16:16 Q4HR PRN GAS Plan Nabila Mahmood is 23 yr female history of morbid obesity, Hyperlipidemia, fatty liver disease who is day 3. Internal medicine team was consulted for assessment of patient due to hypotension readings. She will be transferred to telemetry for closer monitoring. #Shock-resolved #Hemoperitoneum-resolved After no improvement seen on H&H posttransfusion, patient was taken for CT abdomen pelvis which showed bleeding and peritoneum. Ex?lap, done with OB Dr. Castro and gen surg Dr. Alford, showed no definite source of bleeding however significant for 1 L clot. -Monitor for any significant bleeding in FANNIE drain -Daily CBC -patient is now stable #s/p day 3 #Hysterectomy #Hx hyperlipidemia #Obesity class III Health maintenance: Dispo: tele pt in ICU for hemodynamic monitoring DVT prophylaxis: not indicated CODE STATUS: Full code Diet: Regular IM team will sign off case as patient remains stable. Recall PRN. The patient's management plan was discussed with my attending physician Dr. Friedman and senior Dr. Hernandez. Rody Ann, PGY-1 Attending Provider Attestation/Addendum Chrissie Mora DO, attest that I was physically present for the bartholomew portions of the service and evaluated the patient with the resident and I reviewed and discussed the case with the resident and agree with the resident's findings and plans of care as documented above Patient seen and evaluated this AM. Patient states she is feeling well, but complains of some postsurgical pain. She is otherwise ambulating without issue. She denies any shortness of breath or chest pain. Patient has been afebrile and BP within normal limits. Medicine will sign off at this time as patient is hemodynamically stable. Please feel free to re-call if needed.
--- NOTE | 2024-05-23 18:10 | ESPR_ITS ---
Documentation for date of: 05/23/24 Exam Vital Signs Temp Pulse Resp BP Pulse Ox O2 Del Method O2 Flow Rate 98.3 F 97 19 149/95 H 99 Room Air 2 05/23/24 16:00 05/23/24 16:00 05/23/24 16:00 05/23/24 16:00 05/23/24 16:00 05/23/24 16:00 05/23/24 12:00 Urinary Catheter Management Cath placed during this visit: no HEATING AND VENTILATING TENDER - PN: Obj Data Labs 05/23/24 08:20 05/23/24 05:06 Labs: Laboratory Results - last 24 hr 05/22/24 05/23/24 05/23/24 19:10 05:06 08:20 WBC 9.9 9.2 8.6 RBC 3.45 L 2.99 L 3.04 L Hgb 9.1 L 8.0 L 8.0 L Hct 27.2 L 23.6 L 24.0 L MCV 79 L 79 L 79 L MCH 26.4 26.8 26.3 MCHC 33.5 33.9 33.3 RDW Std Deviation 50.1 H 49.9 H 50.1 H Plt Count 204 182 182 Neut % (Auto) 63 64 67 Lymph % (Auto) 27 25 23 [place] % (Auto) 10 10 9 Eos % (Auto) 0 0 0 Baso % (Auto) 0 0 0 Neut # (Auto) 6.2 5.9 5.8 Lymph # (Auto) 2.6 2.3 2.0 [place] # (Auto) 1.0 H 0.9 H 0.8 Eos # (Auto) 0.0 0.0 0.0 Baso # (Auto) 0.0 0.0 0.0 Immature Gran # (Auto) 0.06 H 0.08 H 0.04 H Absolute Nucleated RBC 0.03 H 0.03 H 0.03 H Immature Gran % 1 H 1 H 1 H Nucleated RBC % 0 0 0 PT 10.8 INR 1.0 APTT 25.9 Fibrinogen 620 H* Sodium 139 138 Potassium 4.4 3.6 D Chloride 106 104 Carbon Dioxide 23.8 24.1 Anion Gap 9 10 BUN 10 12 Creatinine 0.7 0.6 Estim Creat Clear Calc 189.7 184.3 eGFR > 60 > 60 BUN/Creatinine Ratio 14 20 Glucose 86 98 Calculated Osmolality 275 275 Calcium 8.1 L 7.9 L Corrected Calcium 8.9 8.9 Total Bilirubin 0.3 0.3 AST 13 11 ALT 9 L < 7 L Alkaline Phosphatase 82 77 Total Protein 5.3 L 5.0 L Albumin 3.0 L 2.8 L Globulin 2.3 2.2 L Albumin/Globulin Ratio 1.3 1.3 HEATING AND VENTILATING TENDER - A/P Assessment and plan (1) Post-op bleeding: Status: Acute Assessment and plan: Evening Rounds Nabila is a 23yo POD 1 s/p ex-lap (OR take-back) with evacuation of 1L of clotted hemoperitoneum and placement of FANNIE drain, POD 2 s/p life-saving supracervical hysterectomy for severe hemorrhage related to unresolvable uterine atony. She received 4u pRBCs in total between intra-op and post-op after hysterectomy, but did not have the anticipated rise in hemoglobin, so CT abdomen/pelvis was performed which showed large hemoperitoneum with possible bleeding from right side of pelvis. Ex-lap was significant for 1L clotted hemoperitoneum, but no source of bleeding was observed after extensive observation, and thus FANNIE drain was placed to observe for any further bleeding. During ex-lap she received another 2u pRBCs, 2u FFP, and albumin with calcium. Currently having abdominal pain in RUQ she believes is related to gas pains. The FANNIE drain has been causing her discomfort as well. She did pas gas today. Tolerating clears without nausea/vomiting. She was able to get into wheelchair and go downstairs today to visit with her mom and baby. She denies chest pain and SOB. is at bedside with her. Hernandez in place draining yellow urine. Vitals remain stable, afebrile. She is awake and conversant Abdomen: soft, appropriately tender to palpation around incision, non-distended, no rebound/guarding. Dry/clean/intact prineo bandage overlying pfannenstiel incision. No erythema/induration/drainage. FANNIE drain in RLQ contains very minimal brownish fluid (residual surgicel effect)- no accumulation at all thus far. I removed the FANNIE drain: sterile scissors used to snip the nylon suture to remove and drain pulled out, well tolerated. Kerlex dressing placed over small FANNIE puncture site to catch any residual seepage as the site closes. Extremities: no pain with palpation of calves, 1+ BLE edema, SCDs are not currently on Prior to 2nd surgery Hgb was 8.4. Since surgery Hgb has trended 9.7 (right after the 6th unit of pRBCs) to 8.9 (at 0930 on 05/22) to 8 (at 0500 on 05/23) repeated and still 8 (at 0820 on 05/23) Plt 182 Coags normal, fibrinogen increased to 620 Creatinine improving, 0.6 Urine output approx 100ml/hr Patient remains improved and stable, now working on post-op milestones. IM team signed off today Continue clear liquid diet tonight, consider Regular diet tomorrow Physical therapy ordered to assist with ambulation Encourage ambulation, SCDs (requested RN to place SCDs and have them functioning when patient in bed). Will initiate Lovenox tomorrow for anti-coagulation if Hgb is stable x24hr. Encourage use of IS Consider hernandez removal tomorrow if patient better able to ambulate to use restroom Oxycodone 5mg PO Q6hr prn mild pain vs morphine 2g IV q2hr for more severe pain. 1 dose of Toradol 30mg IV now and mylicon for gas pains. Will continue to closely monitor vitals, labs, UOP, FANNIE output Continue daily labs. Terri Castro MD (2) Hemoperitoneum: Status: Acute (3) Blood transfusion during current hospitalisation: Status: Acute (4) S/P emergency hysterectomy: Status: Acute (5) Atony of uterus with hemorrhage: Status: Acute Postoperative Procedures: Procedures Operation Date: 05/21/24 11:45 Actual Procedure Side Surgeon p in OB Not Applicable Terri Castro MD s Hysterectomy, Abdominal OB Not Applicable Terri Castro MD Operation Date: 05/22/24 01:40 Actual Procedure Side Surgeon p Exploratory Laparotomy, removal of blood clots and control of bleeding Not Applicable Terri Castro MD Time Spent With Patient Time: Total time spent is greater than 50% in coordination of care (as documented) at patient's floor/unit and/or counseling patient: Time with patient: 25 - 35 minutes
[2024-05-23] MEDS: KETOROLAC INJ 30 MG/ML VIAL IVP (19:30)
[2024-05-24] VITALS (11 sets, daily range): BP systolic 115–157; BP diastolic 72–96; PULSE 72–949; RESP 16–100; TEMP 36.6–38.3; O2SAT 90–100; BMI 59.1; BMI 13.0
[2024-05-24] MEDS: Milk Of Magnesia Susp 30 ML UDC PO (01:02)
[2024-05-24] MEDS: DOCUSATE SOD 100 MG CAPSULE PO ×2 (01:02→22:26)
[2024-05-24] MEDS: HYDROcodone/APAP 5/325 TABLET 1 TAB PO ×3 (02:16→22:25)
[2024-05-24] MEDS: MORPHINE SULF INJ 10 MG/ML VIAL 2 MG IVP (03:17)
--- NOTE | 2024-05-24 04:08 | PD.GYNPROG ---
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 VICE PRESIDENT - PN: Obj Data Labs 05/23/24 08:20 05/23/24 05:06 Labs: Laboratory Results - last 24 hr 05/23/24 05/23/24 05:06 08:20 WBC 9.2 8.6 RBC 2.99 L 3.04 L Hgb 8.0 L 8.0 L Hct 23.6 L 24.0 L MCV 79 L 79 L MCH 26.8 26.3 MCHC 33.9 33.3 RDW Std Deviation 49.9 H 50.1 H Plt Count 182 182 Neut % (Auto) 64 67 Lymph % (Auto) 25 23 [place] % (Auto) 10 9 Eos % (Auto) 0 0 Baso % (Auto) 0 0 Neut # (Auto) 5.9 5.8 Lymph # (Auto) 2.3 2.0 [place] # (Auto) 0.9 H 0.8 Eos # (Auto) 0.0 0.0 Baso # (Auto) 0.0 0.0 Immature Gran # (Auto) 0.08 H 0.04 H Absolute Nucleated RBC 0.03 H 0.03 H Immature Gran % 1 H 1 H Nucleated RBC % 0 0 Sodium 138 Potassium 3.6 D Chloride 104 Carbon Dioxide 24.1 Anion Gap 10 BUN 12 Creatinine 0.6 Estim Creat Clear Calc 184.3 eGFR > 60 BUN/Creatinine Ratio 20 Glucose 98 Calculated Osmolality 275 Calcium 7.9 L Corrected Calcium 8.9 Total Bilirubin 0.3 AST 11 ALT < 7 L Alkaline Phosphatase 77 Total Protein 5.0 L Albumin 2.8 L Globulin 2.2 L Albumin/Globulin Ratio 1.3 INTERNATIONAL AFFAIRS VICE PRESIDENT - A/P Assessment and plan (1) Post-op bleeding: Status: Acute Assessment and plan: I was called by RN regarding concern for vitals. I had called RN last evening when I noticed pulse was first elevated, and they believed at that time it was from getting patient out of bed and ambulating. Patient's only complaint has been RUQ discomfort which she attributed to gas pains, so we tried a dose of IV toradol and mylicon as well as ambulation. She has had no n/v and diet has been clears- she started passing gas yesterday. She has always denied chest pain and dyspnea. RN called me and stated concern regarding continued elevated pulse and now RR, temp 99+. I went to bedside and evaluated patient. No acute abdomen. Similar appearance as earlier in the evening when I saw her. Only complaint is the RUQ discomfort. Spoke with Dr. Germain and requested IM to continue following and assist with current workup. Will have stat CBC, CMP and lactic acid drawn now. Will rule out PE with CTPA. Based on results of Hgb, may also add on CT abdomen as well. Next steps to be based on results. Terri Castro MD (2) Hemoperitoneum: Status: Acute (3) Blood transfusion during current hospitalisation: Status: Acute (4) S/P emergency hysterectomy: Status: Acute (5) Atony of uterus with hemorrhage: Status: Acute Postoperative Procedures: Procedures Operation Date: 05/21/24 11:45 Actual Procedure Side Surgeon p in OB Not Applicable Terri Castro MD s Hysterectomy, Abdominal OB Not Applicable Terri Castro MD Operation Date: 05/22/24 01:40 Actual Procedure Side Surgeon p Exploratory Laparotomy, removal of blood clots and control of bleeding Not Applicable Terri Castro MD Time Spent With Patient Time: Total time spent is greater than 50% in coordination of care (as documented) at patient's floor/unit and/or counseling patient: Time with patient: less than 15 minutes
[2024-05-24 04:15] LABS: Lactate (Lactic Acid) 0.7 mMol/L (0.4-2.0)
[2024-05-24 04:22] LABS: Basophils % (Auto) 0 % (0-2.5); Eosinophils % (Auto) 0 % (0-10); Hematocrit 23.5 % (36.0-46.0); Immature Granulocytes % (Auto) 1 % (0-0); Immature Granulocytes Auto 0.06 Thou/mm3 (0.00-0.00); Lymphocytes # (Auto) 1.4 Thou/mm3 (1.0-4.8); Lymphocytes % (Auto) 14 % (10-50); Mean Corpuscular HGB Conc 32.8 g/dl (31.0-37.0); Mean Corpuscular Volume 79 fL (80-100); Monocytes # (Auto) 0.7 Thou/mm3 (0.0-0.8); Monocytes % (Auto) 8 % (0-12); Neutrophils # (Auto) 7.5 Thou/mm3 (1.8-7.7); Neutrophils % (Auto) 77 % (37-80); Nucleated Red Blood Cell # 0.05 Thou/mm3 (0.00-0.00); Nucleated Red Blood Cell % 1 /100 WBC (0); Platelet Count 205 Thou/mm3 (140-440); RDW Standard Deviation 50.9 fL (36.4-46.3); Red Blood Count 2.96 Miln/mm3 (4.00-5.20); White Blood Count 9.8 Thou/mm3 (3.6-11.0)
[2024-05-24 04:43] LABS: Hemoglobin 7.7 g/dL (12.0-16.0)
[2024-05-24 04:56] LABS: Alanine Aminotransferase 7 U/L (10-49); Albumin, Serum 2.9 gm/dL (3.5-5.0); Albumin/Globulin Ratio 1.2 (1.2-2.2); Alkaline Phosphatase 84 U/L (46-116); Anion Gap 10 (7-16); Aspartate Amino Transferase 12 U/L (0-34); BUN/Creatinine Ratio 14 Ratio (12-20); Bilirubin,Total 0.4 mg/dL (0.3-1.2); Blood Urea Nitrogen 10 mg/dL (9-23); Calcium 8.1 mg/dL (8.3-10.6); Carbon Dioxide 25.1 mMol/L (20.0-31.0); Chloride 105 mMol/L (98-107); Creatinine (Component) 0.7 mg/dL (0.6-1.3); Estimated Creatinine Clearance 191.9 mL/min (>60); Globulin 2.4 gm/dL (2.3-3.5); Glucose 125 mg/dL (74-106); Osmolality,Calculated 279 (275-295); Potassium 3.6 mMol/L (3.4-5.1); Sodium 140 mMol/L (136-145); Total Protein 5.3 gm/dL (5.7-8.2); eGFR > 60 See Note
[2024-05-24 06:17] LABS: Partial Thromboplastin Time 29.1 Seconds (22.0-36.0)
[2024-05-24 06:47] LABS: Alanine Aminotransferase 8 U/L (10-49); Albumin, Serum 2.8 gm/dL (3.5-5.0); Albumin/Globulin Ratio 1.4 (1.2-2.2); Alkaline Phosphatase 88 U/L (46-116); Anion Gap 11 (7-16); Aspartate Amino Transferase 15 U/L (0-34); BUN/Creatinine Ratio 16 Ratio (12-20); Bilirubin,Total 0.4 mg/dL (0.3-1.2); Blood Urea Nitrogen 11 mg/dL (9-23); Calcium 7.7 mg/dL (8.3-10.6); Calcium (Corrected) 8.7 mg/dL (8.5-10.1); Carbon Dioxide 25.1 mMol/L (20.0-31.0); Chloride 104 mMol/L (98-107); Creatinine (Component) 0.7 mg/dL (0.6-1.3); Estimated Creatinine Clearance 191.9 mL/min (>60); Glucose 124 mg/dL (74-106); Magnesium 1.7 mg/dL (1.6-2.6); Osmolality,Calculated 279 (275-295); Phosphorous 5.3 mg/dL (2.4-5.1); Potassium 3.6 mMol/L (3.4-5.1); Sodium 140 mMol/L (136-145); Total Protein 4.8 gm/dL (5.7-8.2); eGFR > 60 See Note
[2024-05-24] MEDS: ACETAMINOPHEN 325 MG TABLET 650 MG PO (08:33)
--- NOTE | 2024-05-24 09:33 | ESPR_ITS ---
<Statement entered by Elana Hernandez MD - 05/24/24 13:32> I discussed with and supervised my co-resident involved in the care of this patient. I agree with the assessment and plan as documented above. Patient seen and examined at bedside. Complains of gas-like abdominal pain, with urge to flatulate but inability to do so. Febrile, with tachycardia and tachypnea noted overnight so and Wells criteria was high, so CTA was ordered to rule out PE. However IV insertion site for contrast was infiltrated x3. Will attempt VQ scan and if inability to do so, try for CTA again tomorrow. Heparin ggt started regardless and will get ultrasound of lower extremities to rule out DVT. Elana Hernandez MD PGY-3 Documentation for date of: 05/24/24 Subjective Subjective Interval history: Overnight, IM team was recalled to patient's case due to tachycardia HR 100-110 and tachypnea rate in 30s. Per nursing, she had fever of 101 and was given acetaminophen x1. Patient was seen and examined at bedside. Appears much better since yesterday and converses more. Denies any chest pain or SOB. Yesterday she took a few steps to the wheel chair which was difficult to due of the pain. Pain today seems attributable to gas. Will start simethicone and monitor BM. Last BM was 3-4 days ago. BP is stable. Wells score 9---started heparin drip due to concern for DVT. Follow-up with VQ scan. CTA chest was unsuccessful as patient's IVs kept infiltrating. Exam Vital Signs Temp Pulse Resp BP Pulse Ox O2 Del Method O2 Flow Rate 101 F H 107 H 22 H 147/94 H 93 L Room Air 2 05/24/24 08:33 05/24/24 08:00 05/24/24 08:00 05/24/24 08:00 05/24/24 08:00 05/24/24 08:00 05/24/24 04:00 Narrative Exam General: Obese young lady, cooperative, laying comfortably in bed, day 3 HEENT: NCAT, No JVD noted. Mucosa moist. Pupils are equal and reactive to light bilaterally Cardiovascular: Normal S1 and S2. Regular rate and rhythm. Respiratory: Lungs difficult to auscultate due to body habitus Abdomen: Soft, nontender, not distended, normal bowel sounds. : No vaginal bleeding, Sofia catheter in place, FANNIE drain in place minimal fluid collected Skin: Warm to touch, dry, no rashes noted Musculoskeletal: No gross injuries. Able to move all 4 extremities. No pitting edema Neuro: Alert and oriented x3. No focal neuro deficits. Psych: Normal affect and mood Objective Labs 05/24/24 10:15 05/24/24 03:59 Labs: Laboratory Results - last 24 hr 05/24/24 05/24/24 05/24/24 03:59 03:59 03:59 WBC 9.8 RBC 2.96 L Hgb 7.7 L Hct 23.5 L MCV 79 L MCH 26.0 MCHC 32.8 RDW Std Deviation 50.9 H Plt Count 205 Neut % (Auto) 77 Lymph % (Auto) 14 [place] % (Auto) 8 Eos % (Auto) 0 Baso % (Auto) 0 Neut # (Auto) 7.5 Lymph # (Auto) 1.4 [place] # (Auto) 0.7 Eos # (Auto) 0.0 Baso # (Auto) 0.0 Immature Gran # (Auto) 0.06 H Absolute Nucleated RBC 0.05 H Immature Gran % 1 H Nucleated RBC % 1 H PT 11.0 INR 1.0 APTT 29.1 Sodium 140 140 Potassium 3.6 3.6 Chloride 105 Carbon Dioxide Anion Gap BUN Creatinine Estim Creat Clear Calc eGFR BUN/Creatinine Ratio Glucose Calculated Osmolality Lactic Acid Calcium Corrected Calcium Phosphorus Magnesium Total Bilirubin AST ALT Alkaline Phosphatase Total Protein Albumin Globulin Albumin/Globulin Ratio 05/24/24 05/24/24 05/24/24 03:59 03:59 03:59 WBC RBC Hgb Hct MCV MCH MCHC RDW Std Deviation Plt Count Neut % (Auto) Lymph % (Auto) [place] % (Auto) Eos % (Auto) Baso % (Auto) Neut # (Auto) Lymph # (Auto) [place] # (Auto) Eos # (Auto) Baso # (Auto) Immature Gran # (Auto) Absolute Nucleated RBC Immature Gran % Nucleated RBC % PT INR APTT Sodium Potassium Chloride 104 Carbon Dioxide 25.1 25.1 Anion Gap 10 11 BUN 10 Creatinine Estim Creat Clear Calc eGFR BUN/Creatinine Ratio Glucose Calculated Osmolality Lactic Acid Calcium Corrected Calcium Phosphorus Magnesium Total Bilirubin AST ALT Alkaline Phosphatase Total Protein Albumin Globulin Albumin/Globulin Ratio 05/24/24 05/24/24 05/24/24 03:59 03:59 03:59 WBC RBC Hgb Hct MCV MCH MCHC RDW Std Deviation Plt Count Neut % (Auto) Lymph % (Auto) [place] % (Auto) Eos % (Auto) Baso % (Auto) Neut # (Auto) Lymph # (Auto) [place] # (Auto) Eos # (Auto) Baso # (Auto) Immature Gran # (Auto) Absolute Nucleated RBC Immature Gran % Nucleated RBC % PT INR APTT Sodium Potassium Chloride Carbon Dioxide Anion Gap BUN 11 Creatinine 0.7 0.7 Estim Creat Clear Calc 191.9 191.9 eGFR > 60 BUN/Creatinine Ratio Glucose Calculated Osmolality Lactic Acid Calcium Corrected Calcium Phosphorus Magnesium Total Bilirubin AST ALT Alkaline Phosphatase Total Protein Albumin Globulin Albumin/Globulin Ratio 05/24/24 05/24/24 05/24/24 03:59 03:59 03:59 WBC RBC Hgb Hct MCV MCH MCHC RDW Std Deviation Plt Count Neut % (Auto) Lymph % (Auto) [place] % (Auto) Eos % (Auto) Baso % (Auto) Neut # (Auto) Lymph # (Auto) [place] # (Auto) Eos # (Auto) Baso # (Auto) Immature Gran # (Auto) Absolute Nucleated RBC Immature Gran % Nucleated RBC % PT INR APTT Sodium Potassium Chloride Carbon Dioxide Anion Gap BUN Creatinine Estim Creat Clear Calc eGFR > 60 BUN/Creatinine Ratio 14 16 Glucose 125 H 124 H Calculated Osmolality 279 Lactic Acid Calcium Corrected Calcium Phosphorus Magnesium Total Bilirubin AST ALT Alkaline Phosphatase Total Protein Albumin Globulin Albumin/Globulin Ratio 05/24/24 05/24/24 05/24/24 03:59 03:59 03:59 WBC RBC Hgb Hct MCV MCH MCHC RDW Std Deviation Plt Count Neut % (Auto) Lymph % (Auto) [place] % (Auto) Eos % (Auto) Baso % (Auto) Neut # (Auto) Lymph # (Auto) [place] # (Auto) Eos # (Auto) Baso # (Auto) Immature Gran # (Auto) Absolute Nucleated RBC Immature Gran % Nucleated RBC % PT INR APTT Sodium Potassium Chloride Carbon Dioxide Anion Gap BUN Creatinine Estim Creat Clear Calc eGFR BUN/Creatinine Ratio Glucose Calculated Osmolality 279 Lactic Acid 0.7 Calcium 8.1 L 7.7 L Corrected Calcium 9.0 8.7 Phosphorus 5.3 H Magnesium 1.7 Total Bilirubin 0.4 AST ALT Alkaline Phosphatase Total Protein Albumin Globulin Albumin/Globulin Ratio 05/24/24 05/24/24 05/24/24 03:59 03:59 03:59 WBC RBC Hgb Hct MCV MCH MCHC RDW Std Deviation Plt Count Neut % (Auto) Lymph % (Auto) [place] % (Auto) Eos % (Auto) Baso % (Auto) Neut # (Auto) Lymph # (Auto) [place] # (Auto) Eos # (Auto) Baso # (Auto) Immature Gran # (Auto) Absolute Nucleated RBC Immature Gran % Nucleated RBC % PT INR APTT Sodium Potassium Chloride Carbon Dioxide Anion Gap BUN Creatinine Estim Creat Clear Calc eGFR BUN/Creatinine Ratio Glucose Calculated Osmolality Lactic Acid Calcium Corrected Calcium Phosphorus Magnesium Total Bilirubin 0.4 AST 12 15 ALT 7 L 8 L Alkaline Phosphatase 84 Total Protein Albumin Globulin Albumin/Globulin Ratio 05/24/24 05/24/24 05/24/24 03:59 03:59 03:59 WBC RBC Hgb Hct MCV MCH MCHC RDW Std Deviation Plt Count Neut % (Auto) Lymph % (Auto) [place] % (Auto) Eos % (Auto) Baso % (Auto) Neut # (Auto) Lymph # (Auto) [place] # (Auto) Eos # (Auto) Baso # (Auto) Immature Gran # (Auto) Absolute Nucleated RBC Immature Gran % Nucleated RBC % PT INR APTT Sodium Potassium Chloride Carbon Dioxide Anion Gap BUN Creatinine Estim Creat Clear Calc eGFR BUN/Creatinine Ratio Glucose Calculated Osmolality Lactic Acid Calcium Corrected Calcium Phosphorus Magnesium Total Bilirubin AST ALT Alkaline Phosphatase 88 Total Protein 5.3 L 4.8 L Albumin 2.9 L 2.8 L Globulin 2.4 Albumin/Globulin Ratio 05/24/24 05/24/24 03:59 03:59 WBC RBC Hgb Hct MCV MCH MCHC RDW Std Deviation Plt Count Neut % (Auto) Lymph % (Auto) [place] % (Auto) Eos % (Auto) Baso % (Auto) Neut # (Auto) Lymph # (Auto) [place] # (Auto) Eos # (Auto) Baso # (Auto) Immature Gran # (Auto) Absolute Nucleated RBC Immature Gran % Nucleated RBC % PT INR APTT Sodium Potassium Chloride Carbon Dioxide Anion Gap BUN Creatinine Estim Creat Clear Calc eGFR BUN/Creatinine Ratio Glucose Calculated Osmolality Lactic Acid Calcium Corrected Calcium Phosphorus Magnesium Total Bilirubin AST ALT Alkaline Phosphatase Total Protein Albumin Globulin 2.0 L Albumin/Globulin Ratio 1.2 1.4 Quality Measures Quality Measures none Assessment & Plan Assessment Current Active Medications: Generic Name Dose Route Start Last Admin Trade Name Freq PRN Reason Stop Dose Admin Acetaminophen 650 mg 05/24/24 08:05 05/24/24 08:33 Acetaminophen 325 Mg Tablet PO 06/23/24 08:04 650 mg Q6HR PRN Administration FEVER >101 Hydrocodone Bitart/Acetaminophen 1 tab 05/21/24 16:17 05/24/24 02:16 Hydrocodone/Apap 5/325 Tablet PO 05/26/24 16:16 1 tab Q4HR PRN Administration Patient rated pain 7 to 8 Hydrocodone Bitart/Acetaminophen 2 tab 05/21/24 16:17 Hydrocodone/Apap 5/325 Tablet PO 05/26/24 16:16 Q6HR PRN Patient rated pain 9 to 10 Diphtheria/Tetanus/Acell Pertussis 0.5 ml 05/21/24 16:17 Diphth,Pertuss(Acell),Tet Vac 0.5 Ml Vial IMi X1 PRN SEE COMMENTS Docusate Sodium 100 mg 05/24/24 00:35 05/24/24 01:02 Docusate Sod 100 Mg Capsule PO 06/23/24 00:34 100 mg BID PRN Administration ABDOMINAL CRAMPING Protocol Sodium Chloride 2,000 mls @ 500 mls/hr 05/22/24 04:37 Ns IV .Q4H PRN Blood Pressure - Low Measles/Mumps/Rubella Vaccine Live 0.5 ml 05/21/24 16:17 Measles, Mumps & Rubella Vacc 0.5 Ml Vial SCi X1 PRN if non-immune or equivocal Morphine Sulfate 2 mg 05/22/24 19:38 05/24/24 03:17 Morphine Sulf Inj 10 Mg/Ml Vial IVP 05/27/24 19:59 2 mg Q2HR PRN Administration PAIN SCALE 4-10(Mod-Sev Simethicone 80 mg 05/21/24 16:17 Simethicone 80 Mg Chew PO 06/20/24 16:16 Q4HR PRN GAS Simethicone 80 mg 05/23/24 18:07 Simethicone 80 Mg Chew PO 06/22/24 18:06 QID PRN GAS Plan Nabila Mahmood is 23 yr female history of morbid obesity, Hyperlipidemia, fatty liver disease who is day 3. Internal medicine team was consulted for assessment of patient due to hypotension readings. She will be transferred to telemetry for closer monitoring. #Rule out PE Patient started having tachycardia, tachypnea, fever 101 in the morning but hemodynamically stable. Denying any shortness of breath, chest pain, no Wells score 9--high risk of PE, 37.5%. CTA chest unsuccessful due to continuous IV infiltration. -Start heparin drip -Follow PTT - Follow up-VQ scan #Shock-resolved #Hemoperitoneum-resolved #Acute blood loss anemia After no improvement seen on H&H posttransfusion, patient was taken for CT abdomen pelvis which showed bleeding and peritoneum. Ex?lap, done with OB Dr. Castro and gen surg Dr. Alford, showed no definite source of bleeding however significant for 1 L clot. -Monitor for any significant bleeding in FANNIE drain -Daily CBC -patient is now stable #s/p day 3 #Hysterectomy #Hx hyperlipidemia #Obesity class III Health maintenance: Dispo: tele, r/o PE DVT prophylaxis: heparin drip CODE STATUS: Full code Diet: Regular The patient's management plan was discussed with my attending physician Dr. Friedman and senior Dr. Hernandez. Rody Ann, PGY-1 Attending Provider Attestation/Addendum I, Chrissie Friedman, DO, attest that I was physically present for the bartholomew portions of the service and evaluated the patient with the resident and I reviewed and discussed the case with the resident and agree with the resident's findings and plans of care as documented above Patient seen and evaluated this AM. Patient reports pain in her abdomen, but different in quality of pain when she developed hematoma. She states she feels bloated and pain appears to be 2/2 gas pain. Patient has been tachycardic throughout the night. She denies any shortness of breath or chest pain. CTA had been ordered overnight, but IV infiltrated after 3 failed attempts. Due to possible contrast delivered, CTA was cancelled and VQ scan was ordred. However, due to patient's body habitus, VQ scan was not possible. Wells score of 6. Will start heparin drip at this time and re-attempt CTA in AM. OK to start AC per OB. However, tachycardia may also be secondary to pain. Encouraged patient to ambulate and use incentive spirometer. Pain control PRN
--- NOTE | 2024-05-24 10:22 | PC.NURSE ---
MD Ann made aware that CT was not successful due to IV blowing once contrast injected.
[2024-05-24 10:35] LABS: Basophils % (Auto) 0 % (0-2.5); Eosinophils % (Auto) 0 % (0-10); Hematocrit 26.3 % (36.0-46.0); Immature Granulocytes % (Auto) 1 % (0-0); Immature Granulocytes Auto 0.07 Thou/mm3 (0.00-0.00); Lymphocytes # (Auto) 1.6 Thou/mm3 (1.0-4.8); Lymphocytes % (Auto) 16 % (10-50); Mean Corpuscular HGB Conc 33.1 g/dl (31.0-37.0); Mean Corpuscular Hemoglobin 26.5 pg (25.0-35.0); Mean Corpuscular Volume 80 fL (80-100); Monocytes # (Auto) 0.7 Thou/mm3 (0.0-0.8); Monocytes % (Auto) 7 % (0-12); Neutrophils # (Auto) 7.4 Thou/mm3 (1.8-7.7); Neutrophils % (Auto) 75 % (37-80); Nucleated Red Blood Cell # 0.06 Thou/mm3 (0.00-0.00); Nucleated Red Blood Cell % 1 /100 WBC (0); Platelet Count 290 Thou/mm3 (140-440); RDW Standard Deviation 52.4 fL (36.4-46.3); Red Blood Count 3.28 Miln/mm3 (4.00-5.20); White Blood Count 9.8 Thou/mm3 (3.6-11.0)
[2024-05-24 10:53] LABS: Hemoglobin 8.7 g/dL (12.0-16.0)
[2024-05-24] MEDS: HEPARIN SOD INJ 5000 UNIT/ML VIAL 8000 UNIT IV ×2 (11:07→20:58)
[2024-05-24] MEDS: Heparin/D5w 25K 250 ML Ivpb 25,000 UNIT/250 ML BAG 17.264 UNIT IV (11:10)
--- NOTE | 2024-05-24 12:54 | PD.GYNPROG ---
Documentation for date of: 05/24/24 Exam Vital Signs Temp Pulse Resp BP Pulse Ox O2 Del Method O2 Flow Rate 101 F H 107 H 22 H 147/94 H 93 L Room Air 2 05/24/24 08:33 05/24/24 08:00 05/24/24 08:00 05/24/24 08:00 05/24/24 08:00 05/24/24 08:00 05/24/24 04:00 Urinary Catheter Management Cath placed during this visit: no MILIEU COUNSELOR - PN: Obj Data Labs 05/24/24 10:15 05/24/24 03:59 Labs: Laboratory Results - last 24 hr 05/19/24 05/22/24 05/24/24 12:30 02:02 03:59 WBC 9.8 RBC 2.96 L Hgb 7.7 L Hct 23.5 L MCV 79 L MCH 26.0 MCHC 32.8 RDW Std Deviation 50.9 H Plt Count 205 Neut % (Auto) 77 Lymph % (Auto) 14 [place] % (Auto) 8 Eos % (Auto) 0 Baso % (Auto) 0 Neut # (Auto) 7.5 Lymph # (Auto) 1.4 [place] # (Auto) 0.7 Eos # (Auto) 0.0 Baso # (Auto) 0.0 Immature Gran # (Auto) 0.06 H Absolute Nucleated RBC 0.05 H Immature Gran % 1 H Nucleated RBC % 1 H PT 11.0 INR 1.0 APTT 29.1 Sodium 140 Potassium Chloride Carbon Dioxide Anion Gap BUN Creatinine Estim Creat Clear Calc eGFR BUN/Creatinine Ratio Glucose Calculated Osmolality Lactic Acid Calcium Corrected Calcium Phosphorus Magnesium Total Bilirubin AST ALT Alkaline Phosphatase Total Protein Albumin Globulin Albumin/Globulin Ratio Blood Type O Positive O Positive Antibody Screen NEGATIVE NEGATIVE Crossmatch See Detail See Detail Blood Bank Wristband ID Yes Yes Blood Bank Comment FFP Ready 05/24/24 05/24/24 05/24/24 03:59 03:59 03:59 WBC RBC Hgb Hct MCV MCH MCHC RDW Std Deviation Plt Count Neut % (Auto) Lymph % (Auto) [place] % (Auto) Eos % (Auto) Baso % (Auto) Neut # (Auto) Lymph # (Auto) [place] # (Auto) Eos # (Auto) Baso # (Auto) Immature Gran # (Auto) Absolute Nucleated RBC Immature Gran % Nucleated RBC % PT INR APTT Sodium 140 Potassium 3.6 3.6 Chloride 105 104 Carbon Dioxide 25.1 Anion Gap BUN Creatinine Estim Creat Clear Calc eGFR BUN/Creatinine Ratio Glucose Calculated Osmolality Lactic Acid Calcium Corrected Calcium Phosphorus Magnesium Total Bilirubin AST ALT Alkaline Phosphatase Total Protein Albumin Globulin Albumin/Globulin Ratio Blood Type Antibody Screen [facility] Blood [facility] Blood Bank Comment 05/24/24 05/24/24 05/24/24 03:59 03:59 03:59 WBC RBC Hgb Hct MCV MCH MCHC RDW Std Deviation Plt Count Neut % (Auto) Lymph % (Auto) [place] % (Auto) Eos % (Auto) Baso % (Auto) Neut # (Auto) Lymph # (Auto) [place] # (Auto) Eos # (Auto) Baso # (Auto) Immature Gran # (Auto) Absolute Nucleated RBC Immature Gran % Nucleated RBC % PT INR APTT Sodium Potassium Chloride Carbon Dioxide 25.1 Anion Gap 10 11 BUN 10 11 Creatinine 0.7 Estim Creat Clear Calc eGFR BUN/Creatinine Ratio Glucose Calculated Osmolality Lactic Acid Calcium Corrected Calcium Phosphorus Magnesium Total Bilirubin AST ALT Alkaline Phosphatase Total Protein Albumin Globulin Albumin/Globulin Ratio Blood Type Antibody Screen [facility] Blood [facility] Blood Bank Comment 05/24/24 05/24/24 05/24/24 03:59 03:59 03:59 WBC RBC Hgb Hct MCV MCH MCHC RDW Std Deviation Plt Count Neut % (Auto) Lymph % (Auto) [place] % (Auto) Eos % (Auto) Baso % (Auto) Neut # (Auto) Lymph # (Auto) [place] # (Auto) Eos # (Auto) Baso # (Auto) Immature Gran # (Auto) Absolute Nucleated RBC Immature Gran % Nucleated RBC % PT INR APTT Sodium Potassium Chloride Carbon Dioxide Anion Gap BUN Creatinine 0.7 Estim Creat Clear Calc 191.9 191.9 eGFR > 60 > 60 BUN/Creatinine Ratio 14 Glucose Calculated Osmolality Lactic Acid Calcium Corrected Calcium Phosphorus Magnesium Total Bilirubin AST ALT Alkaline Phosphatase Total Protein Albumin Globulin Albumin/Globulin Ratio Blood Type Antibody Screen [facility] Blood [facility] Blood Bank Comment 05/24/24 05/24/24 05/24/24 03:59 03:59 03:59 WBC RBC Hgb Hct MCV MCH MCHC RDW Std Deviation Plt Count Neut % (Auto) Lymph % (Auto) [place] % (Auto) Eos % (Auto) Baso % (Auto) Neut # (Auto) Lymph # (Auto) [place] # (Auto) Eos # (Auto) Baso # (Auto) Immature Gran # (Auto) Absolute Nucleated RBC Immature Gran % Nucleated RBC % PT INR APTT Sodium Potassium Chloride Carbon Dioxide Anion Gap BUN Creatinine Estim Creat Clear Calc eGFR BUN/Creatinine Ratio 16 Glucose 125 H 124 H Calculated Osmolality 279 279 Lactic Acid 0.7 Calcium 8.1 L Corrected Calcium Phosphorus Magnesium Total Bilirubin AST ALT Alkaline Phosphatase Total Protein Albumin Globulin Albumin/Globulin Ratio Blood Type Antibody Screen [place] Blood Bank [facility] Blood Bank Comment 05/24/24 05/24/24 05/24/24 03:59 03:59 03:59 WBC RBC Hgb Hct MCV MCH MCHC RDW Std Deviation Plt Count Neut % (Auto) Lymph % (Auto) [place] % (Auto) Eos % (Auto) Baso % (Auto) Neut # (Auto) Lymph # (Auto) [place] # (Auto) Eos # (Auto) Baso # (Auto) Immature Gran # (Auto) Absolute Nucleated RBC Immature Gran % Nucleated RBC % PT INR APTT Sodium Potassium Chloride Carbon Dioxide Anion Gap BUN Creatinine Estim Creat Clear Calc eGFR BUN/Creatinine Ratio Glucose Calculated Osmolality Lactic Acid Calcium 7.7 L Corrected Calcium 9.0 8.7 Phosphorus 5.3 H Magnesium 1.7 Total Bilirubin 0.4 0.4 AST 12 ALT Alkaline Phosphatase Total Protein Albumin Globulin Albumin/Globulin Ratio Blood Type Antibody Screen [place] Blood [facility] Blood Bank Comment 05/24/24 05/24/24 05/24/24 03:59 03:59 03:59 WBC RBC Hgb Hct MCV MCH MCHC RDW Std Deviation Plt Count Neut % (Auto) Lymph % (Auto) [place] % (Auto) Eos % (Auto) Baso % (Auto) Neut # (Auto) Lymph # (Auto) [place] # (Auto) Eos # (Auto) Baso # (Auto) Immature Gran # (Auto) Absolute Nucleated RBC Immature Gran % Nucleated RBC % PT INR APTT Sodium Potassium Chloride Carbon Dioxide Anion Gap BUN Creatinine Estim Creat Clear Calc eGFR BUN/Creatinine Ratio Glucose Calculated Osmolality Lactic Acid Calcium Corrected Calcium Phosphorus Magnesium Total Bilirubin AST 15 ALT 7 L 8 L Alkaline Phosphatase 84 88 Total Protein 5.3 L Albumin Globulin Albumin/Globulin Ratio Blood Type Antibody Screen [place] Blood [facility] Blood Bank Comment 05/24/24 05/24/24 05/24/24 03:59 03:59 03:59 WBC RBC Hgb Hct MCV MCH MCHC RDW Std Deviation Plt Count Neut % (Auto) Lymph % (Auto) [place] % (Auto) Eos % (Auto) Baso % (Auto) Neut # (Auto) Lymph # (Auto) [place] # (Auto) Eos # (Auto) Baso # (Auto) Immature Gran # (Auto) Absolute Nucleated RBC Immature Gran % Nucleated RBC % PT INR APTT Sodium Potassium Chloride Carbon Dioxide Anion Gap BUN Creatinine Estim Creat Clear Calc eGFR BUN/Creatinine Ratio Glucose Calculated Osmolality Lactic Acid Calcium Corrected Calcium Phosphorus Magnesium Total Bilirubin AST ALT Alkaline Phosphatase Total Protein 4.8 L Albumin 2.9 L 2.8 L Globulin 2.4 2.0 L Albumin/Globulin Ratio 1.2 Blood Type Antibody Screen Crossmatch Blood Bank [employer] ID Blood Bank Comment 05/24/24 05/24/24 03:59 10:15 WBC 9.8 RBC 3.28 L Hgb 8.7 L Hct 26.3 L MCV 80 MCH 26.5 MCHC 33.1 RDW Std Deviation 52.4 H Plt Count 290 D Neut % (Auto) 75 Lymph % (Auto) 16 [place] % (Auto) 7 Eos % (Auto) 0 Baso % (Auto) 0 Neut # (Auto) 7.4 Lymph # (Auto) 1.6 [place] # (Auto) 0.7 Eos # (Auto) 0.0 Baso # (Auto) 0.0 Immature Gran # (Auto) 0.07 H Absolute Nucleated RBC 0.06 H Immature Gran % 1 H Nucleated RBC % 1 H PT INR APTT Sodium Potassium Chloride Carbon Dioxide Anion Gap BUN Creatinine Estim Creat Clear Calc eGFR BUN/Creatinine Ratio Glucose Calculated Osmolality Lactic Acid Calcium Corrected Calcium Phosphorus Magnesium Total Bilirubin AST ALT Alkaline Phosphatase Total Protein Albumin Globulin Albumin/Globulin Ratio 1.4 Blood Type Antibody Screen Crossmatch Blood Bank Wristband ID Blood Bank Comment MILIEU COUNSELOR - A/P Assessment and plan (1) S/P emergency hysterectomy: Status: Acute Assessment and plan: Nabila is a 23yo POD 2 s/p ex-lap (OR take-back) with evacuation of 1L of clotted hemoperitoneum and placement of FANNIE drain, POD 3 s/p life-saving supracervical hysterectomy for severe hemorrhage related to unresolvable uterine atony. She received 4u pRBCs in total between intra-op and post-op after hysterectomy, but did not have the anticipated rise in hemoglobin, so CT abdomen/pelvis was performed which showed large hemoperitoneum with possible bleeding from right side of pelvis. Ex-lap was significant for 1L clotted hemoperitoneum, but no source of bleeding was observed after extensive observation, and thus FANNIE drain was placed to observe for any further bleeding. During ex-lap she received another 2u pRBCs, 2u FFP, and albumin with calcium. Overnight there was concern for possible PE given tachycardia and increased RR, this morning temp of 101F. Plan was for CTPA, but IV infiltrated on a few occasions and thus plan is now for VQ scan. In the meantime, she was started on Heparin drip 2/2 high Wells score. She has never had chest pain, palpitations, dyspnea or SOB. She does continue to have some RUQ pain that she has attributed to gas pains, and it has gotten better as she has been able to burp and pass flatus as well as ambulate. She continues to tolerate clears without nausea/vomiting. FANNIE drain was removed yesterday evening since it never drained anything meaningful and was causing her discomfort. Hernandez in place draining yellow urine- more concentrated today than yesterday. Pulse 100's, RR 20's, temp 101F at 0800 She is awake and conversant, no acute distress, not diaphoretic Abdomen: soft, appropriately tender to palpation around incision, non-distended, no rebound/guarding. Dry/clean/intact prineo bandage overlying pfannenstiel incision. No erythema/induration/drainage. Previous 5mm FANNIE drain site in RLQ has no erythema/induration/drainage. Extremities: no pain with palpation of calves, 1+ BLE edema, SCDs in place WBC 9.8 Hgb 8.7 Plt 290 Creatinine 0.7 Lactic acid 0.7 Urine output normal Plan: At this time, low grade fever seems more consistent with possible PE than infection since her WBC count is normal/stable. Lactic acid normal. She received IV ancef until 24hr after her 2nd surgery. Will continue to closely observe for s/sx of infection Appreciate IM assistance with workup and treatment of possible PE, awaiting VQ scan and Heparin drip initiated Continue clear liquid diet until having less gas pains and then can initiate regular diet Physical therapy initiated to assist with ambulation Encouraged ambulation (SCDs when in bed) Encouraged patient to work diligently at PO hydrating Encouraged use of IS Consider hernandez removal this evening or tomorrow if patient better able to ambulate to use restroom [place] prn surgical pain. Mylicon for gas pains. Will continue to closely monitor vitals, labs, UOP Continue daily labs. (2) Post-op bleeding: Status: Acute (3) Hemoperitoneum: Status: Acute (4) Blood transfusion during current hospitalisation: Status: Acute (5) Atony of uterus with hemorrhage: Status: Acute Postoperative Procedures: Procedures Operation Date: 05/21/24 11:45 Actual Procedure Side Surgeon p in OB Not Applicable Terri Castro MD s Hysterectomy, Abdominal OB Not Applicable Terri Castro MD Operation Date: 05/22/24 01:40 Actual Procedure Side Surgeon p Exploratory Laparotomy, removal of blood clots and control of bleeding Not Applicable Terri Castro MD Time Spent With Patient Time: Total time spent is greater than 50% in coordination of care (as documented) at patient's floor/unit and/or counseling patient: Time with patient: less than 15 minutes
--- NOTE | 2024-05-24 15:25 | XR_ITS ---
Examination: Venous duplex lower extremity sonogram, bilateral. Date and time of exam: May 24, 2024 1611 hrs. Indications: Leg pain beginning 3 days ago Technique: Multiple sonographic images of the deep venous system have been obtained. B-mode/2-D grayscale imaging of vascular structures and Doppler spectral analysis (waveforms) and color performed Both legs are examined. Findings: Deep venous systems do not demonstrate abnormal echogenicity. All visualized deep veins exhibit compressibility. All visualized deep veins exhibit augmentation. Impression: Negative for deep vein thrombosis
[2024-05-24 18:59] LABS: Partial Thromboplastin Time 28.5 Seconds (22.0-36.0)
--- NOTE | 2024-05-24 20:15 | XR_ITS ---
Examination: Venous duplex upper extremity sonogram, bilateral. Date and time of exam: June 04, 2024 0002 hrs. Indications: 3 days with left arm swelling Technique: Multiple sonographic images of the deep venous system have been obtained. B-mode/2-D grayscale imaging of vascular structures and Doppler spectral analysis (waveforms) and color performed Both legs are examined. Findings: Deep venous systems do not demonstrate abnormal echogenicity. No diagnostic visualization left ulnar vein All visualized deep veins exhibit compressibility. All visualized deep veins exhibit augmentation. Impression: Negative for deep vein thrombosis
--- NOTE | 2024-05-24 20:18 | PC.NURSE ---
DR. ORTEGA MADE AWARE OF LUE EDEMA WITH SLIGHT NUMBNESS AND TINGLING TO THE ARM POSSIBLY SECONDARY TO INFILTRATED IV W/CONTRAST. ALSO MADE MD AWARE OF +WHEEZING TO LEFT LOBE. HX OF ASTHMA. STATES HE WILL PLACE ORDERS FOR US LUE AND DUONEB TX
[2024-05-24] MEDS: NIFEdipine XL 30 MG TABCR PO (21:00)
--- NOTE | 2024-05-24 22:40 | PC.NURSE ---
PT UP TO BSC, HR UP TO 120'S. NO C/O OF DIZZINESS. PASSED GAS BUT UNABLE TO PASS BM. PT WAS GIVEN COLACE PRN
[2024-05-24] MEDS: ALBUTEROL/IPRATROPIUM (Duoneb) RT SOL 3 ML NEBU INH (23:33)
[2024-05-25] VITALS (16 sets, daily range): BP systolic 109–151; BP diastolic 52–93; PULSE 70–108; RESP 16–98; TEMP 36.1–37.1; O2SAT 93–99
--- NOTE | 2024-05-25 | XR_ITS ---
Examination: Ultrasound-guided needle placement right cephalic vein. Dual-lumen central line placement (PICC line). Fluoroscopy AP chest, portable, single view Exam date and time:May 25, 2024 1001 hours INDICATIONS: Need for long-term intravenous anticoagulation medication A timeout was completed verifying correct patient, procedure, site, positioning Informed consent provided Technique: The patient's site was prepped and draped in sterile fashion. Maximum Sterile Barrier Technique used including cap, mask, sterile gown, sterile gloves, and sterile full body drape. If ultrasound technique used: sterile gel and sterile probe covers. Hand Hygiene performed using proper scrub, soap and water, or alcohol-based hand rub. Ultrasound thyroid portable apparatus utilized to confirm patency of the right cephalic vein Utilizing ultrasonographic guidance successful 21-gauge needle puncture into the right cephalic vein Ultrasound images recorded and stored. 5 cc 1% lidocaine administered for local anesthetic. Successful micropuncture with a 21-gauge needle is performed. 0.18 wire guide is then introduced into the SVC under fluoroscopic guidance. Dual-lumen catheter dilator is then introduced, followed by the catheter in the SVC and proper position under fluoroscopic guidance. Successful aspiration of blood and flushing with heparinized saline is then performed in the 2 venous limbs. The catheter sutured in place. Findings: Under fluoroscopy, the tip of the catheter is in good position in the vena cava. Portable chest x-ray, post line placement is ordered. Estimated blood loss 3 cc The patient tolerated the procedure well and was in stable and satisfactory condition at completion of the procedure Impression: Successful ultrasound-guided needle placement right cephalic vein Successful placement of dual lumen central line, percutaneous Fluoroscopy 0.3 minute radiation dose 11.86 milligray 1 spot fluoroscopic chest. AP chest completion procedure demonstrates satisfactory position central line. May use central line.
[2024-05-25] MEDS: SIMETHICONE 80 MG CHEW PO (01:17)
[2024-05-25] MEDS: MORPHINE SULF INJ 10 MG/ML VIAL 2 MG IVP (01:24)
[2024-05-25] MEDS: Heparin/D5w 25K 250 ML Ivpb 25,000 UNIT/250 ML BAG 23.541 UNIT IV (03:19)
[2024-05-25 03:46] LABS: Basophils % (Auto) 0 % (0-2.5); Eosinophils # (Auto) 0.1 Thou/mm3 (0.0-0.5); Eosinophils % (Auto) 1 % (0-10); Hematocrit 23.9 % (36.0-46.0); Immature Granulocytes % (Auto) 0 % (0-0); Immature Granulocytes Auto 0.04 Thou/mm3 (0.00-0.00); Lymphocytes # (Auto) 1.9 Thou/mm3 (1.0-4.8); Lymphocytes % (Auto) 20 % (10-50); Mean Corpuscular HGB Conc 32.6 g/dl (31.0-37.0); Mean Corpuscular Hemoglobin 26.4 pg (25.0-35.0); Mean Corpuscular Volume 81 fL (80-100); Monocytes # (Auto) 0.6 Thou/mm3 (0.0-0.8); Monocytes % (Auto) 6 % (0-12); Neutrophils # (Auto) 6.6 Thou/mm3 (1.8-7.7); Neutrophils % (Auto) 72 % (37-80); Nucleated Red Blood Cell # 0.03 Thou/mm3 (0.00-0.00); Nucleated Red Blood Cell % 0 /100 WBC (0); Platelet Count 250 Thou/mm3 (140-440); RDW Standard Deviation 51.7 fL (36.4-46.3); Red Blood Count 2.96 Miln/mm3 (4.00-5.20); White Blood Count 9.1 Thou/mm3 (3.6-11.0)
[2024-05-25 03:52] LABS: Hemoglobin 7.8 g/dL (12.0-16.0)
[2024-05-25 04:15] LABS: Anion Gap 11 (7-16); BUN/Creatinine Ratio 11 Ratio (12-20); Blood Urea Nitrogen 8 mg/dL (9-23); Calcium 8.1 mg/dL (8.3-10.6); Carbon Dioxide 24.3 mMol/L (20.0-31.0); Chloride 103 mMol/L (98-107); Creatinine (Component) 0.7 mg/dL (0.6-1.3); Estimated Creatinine Clearance 191.9 mL/min (>60); Glucose 117 mg/dL (74-106); Osmolality,Calculated 274 (275-295); Potassium 3.4 mMol/L (3.4-5.1); Sodium 138 mMol/L (136-145); eGFR > 60 See Note
[2024-05-25 04:29] LABS: Partial Thromboplastin Time 28.7 Seconds (22.0-36.0)
--- NOTE | 2024-05-25 04:30 | PC.NURSE ---
PT WITH O2 SATS AT 88% ON ROOM AIR. NO C/O DIFFICULTY BREATHING OR SOB. PLACED ON 2L NC. O2 SATS NOW AT 93%.
[2024-05-25] MEDS: HEPARIN SOD INJ 5000 UNIT/ML VIAL 8000 UNIT IV (04:58)
--- NOTE | 2024-05-25 07:00 | XR_ITS ---
Examination: CTA chest with intravenous contrast 2-D reconstructions 3-D reconstructions, vascular Date and time of exam: May 25, 2024 1103 hours INDICATIONS: Onset chest pain shortness of breath today, clinical diagnosis pulmonary emboli CTDI: vol (mGy) 27 DLP: (mGycm) 672 Technique: Multiple axial sections of the thorax have been obtained. 3 mm slice thickness, from below the hemidiaphragms to above the apices of the lungs. Mediastinal and lung density settings have been obtained. 2-D sagittal and coronal reconstructions. 3-D angiographic renderings, 3-D volume renderings, 3D post processing, vascular maximum intensity projections obtained. Contrast administered is 100 cc Isovue-370 intravenous. Low dose protocols were performed. One or more of the following dose reduction techniques were used; automated exposure control, adjustment of the mA and/or KV according to patient size, use of iterative reconstruction technique. Findings: No thoracic aortic aneurysmal dilatation Pulmonary artery opacification is poor No gross pulmonary artery emboli Atelectasis versus mild pneumonia left base Small left pleural effusion No visualized liver or splenic lesion No definite gallstones Irregular contrast collection in the kidneys which can be seen with hypertension IMPRESSION: Limited opacification pulmonary arteries, no gross pulmonary artery emboli Atelectasis versus mild pneumonia left base
--- NOTE | 2024-05-25 08:05 | PD.GYNPROG ---
Documentation for date of: 05/25/24 Exam Vital Signs Temp Pulse Resp BP Pulse Ox O2 Del Method O2 Flow Rate 98.7 F 83 32 H 147/90 H 93 L Nasal Cannula 2 05/25/24 04:00 05/25/24 04:00 05/25/24 04:00 05/25/24 04:00 05/25/24 04:00 05/25/24 04:00 05/25/24 04:00 Urinary Catheter Management Cath placed during this visit: no SLIVER LAPPER - PN: Obj Data Labs 05/25/24 03:30 05/25/24 03:30 Labs: Laboratory Results - last 24 hr 05/19/24 05/22/24 05/24/24 12:30 02:02 10:15 WBC 9.8 RBC 3.28 L Hgb 8.7 L Hct 26.3 L MCV 80 MCH 26.5 MCHC 33.1 RDW Std Deviation 52.4 H Plt Count 290 D Neut % (Auto) 75 Lymph % (Auto) 16 [place] % (Auto) 7 Eos % (Auto) 0 Baso % (Auto) 0 Neut # (Auto) 7.4 Lymph # (Auto) 1.6 [place] # (Auto) 0.7 Eos # (Auto) 0.0 Baso # (Auto) 0.0 Immature Gran # (Auto) 0.07 H Absolute Nucleated RBC 0.06 H Immature Gran % 1 H Nucleated RBC % 1 H APTT Sodium Potassium Chloride Carbon Dioxide Anion Gap BUN Creatinine Estim Creat Clear Calc eGFR BUN/Creatinine Ratio Glucose Calculated Osmolality Calcium Blood Type O Positive O Positive Antibody Screen NEGATIVE NEGATIVE Crossmatch See Detail See Detail Blood Bank Wristband ID Yes Yes Blood Bank Comment FFP Ready 05/24/24 05/25/24 17:28 03:30 WBC 9.1 RBC 2.96 L Hgb 7.8 L Hct 23.9 L MCV 81 MCH 26.4 MCHC 32.6 RDW Std Deviation 51.7 H Plt Count 250 D Neut % (Auto) 72 Lymph % (Auto) 20 [place] % (Auto) 6 Eos % (Auto) 1 Baso % (Auto) 0 Neut # (Auto) 6.6 Lymph # (Auto) 1.9 [place] # (Auto) 0.6 Eos # (Auto) 0.1 Baso # (Auto) 0.0 Immature Gran # (Auto) 0.04 H Absolute Nucleated RBC 0.03 H Immature Gran % 0 Nucleated RBC % 0 APTT 28.5 28.7 Sodium 138 Potassium 3.4 Chloride 103 Carbon Dioxide 24.3 Anion Gap 11 BUN 8 L Creatinine 0.7 Estim Creat Clear Calc 191.9 eGFR > 60 BUN/Creatinine Ratio 11 L Glucose 117 H Calculated Osmolality 274 L Calcium 8.1 L Blood Type Antibody Screen Crossmatch Blood Bank Wristband ID Blood Bank Comment SLIVER LAPPER - A/P Assessment and plan (1) S/P emergency hysterectomy: Status: Acute (2) Post-op bleeding: Status: Acute Assessment and plan: Nabila is a 23yo POD 3 s/p ex-lap (OR take-back) with evacuation of 1L of clotted hemoperitoneum and placement of FANNIE drain, POD 4 s/p life-saving supracervical hysterectomy for severe hemorrhage related to unresolvable uterine atony. She received 4u pRBCs in total between intra-op and post-op after hysterectomy, but did not have the anticipated rise in hemoglobin, so CT abdomen/pelvis was performed which showed large hemoperitoneum with possible bleeding from right side of pelvis. Ex-lap was significant for 1L clotted hemoperitoneum, but no source of bleeding was observed after extensive observation, and thus FANNIE drain was placed to observe for any further bleeding. During ex-lap she received another 2u pRBCs, 2u FFP, and albumin with calcium. Plan was for CTPA on 05/24, but IV infiltrated contrast and so she was started on Heparin drip 2/2 high Wells score. She has never had chest pain, palpitations, dyspnea or SOB. This morning during rounding, she was having a new peripheral IV placed on the right side by her RN and also DEVELOPMENTAL MATHEMATICS INSTRUCTOR was placing peripheral IV on left side under ultrasound guidance with plan to try CTPA again this morning. She was a bit tearful, likely a combination of post- baby blues with addition of added stress of continued inpatient stay for treatment. She continues to pass gas with clear liquid diet, no nausea/vomiting. Sofia in place since hasn't been reliably ambulatory yet. Mild range bp's, pulse back to baseline 80's, intermittent elevated RR 20's-30's, receiving O2 to keep O2 sat >92%, afebrile She is awake and conversant, no acute distress, not diaphoretic Abdomen: soft, appropriately tender to palpation around incision, non-distended, no rebound/guarding. Dry/clean/intact prineo bandage overlying pfannenstiel incision. No erythema/induration/drainage. Previous 5mm FANNIE drain site in RLQ has no erythema/induration/drainage. Extremities: no pain with palpation of calves, 1+ BLE edema, SCDs in place WBC 9.1 Hgb 7.8 Plt 250 Creatinine 0.7 Urine output normal A/P: Hemodynamically stable. No evidence of infection. Still need to perform CTPA to observe for PE. Recommend 1u pRBCs to have Hgb reliably >8 for good wound healing Appreciate IM assistance with workup and treatment of possible PE, Heparin drip initiated. CTPA today. Advance diet to regular Physical therapy initiated to assist with ambulation Encouraged ambulation (SCDs when in bed) Encouraged use of IS Sofia removal today [place] prn surgical pain. Mylicon for gas pains. Will continue to closely monitor vitals, labs, UOP Continue daily labs. (3) Hemoperitoneum: Status: Acute (4) Blood transfusion during current hospitalisation: Status: Acute (5) Atony of uterus with hemorrhage: Status: Acute Postoperative Procedures: Procedures Operation Date: 05/21/24 11:45 Actual Procedure Side Surgeon p in OB Not Applicable Terri Castro MD s Hysterectomy, Abdominal OB Not Applicable Terri Castro MD Operation Date: 05/22/24 01:40 Actual Procedure Side Surgeon p Exploratory Laparotomy, removal of blood clots and control of bleeding Not Applicable Terri Castro MD Time Spent With Patient Time: Total time spent is greater than 50% in coordination of care (as documented) at patient's floor/unit and/or counseling patient: Time with patient: 25 - 35 minutes
[2024-05-25] MEDS: POTASSIUM CHLORIDE 20 mEq TABCR 40 MEQ PO (10:06)
[2024-05-25] MEDS: NIFEdipine XL 30 MG TABCR PO ×2 (10:06→20:01)
[2024-05-25] MEDS: LIDOCAINE INJ PF 1% 30 ML VIAL EPID (10:54)
[2024-05-25] MEDS: HEPARIN SOD LOCK SYR 100 UNIT/ML 500 UNIT STFIELD (10:54)
--- NOTE | 2024-05-25 11:43 | PC.NURSE ---
patient was wheeled down to IR for a PICC line insertion, explained the procedure to patient and patient agreed and signed consent, Time out was done with team, PICC line inserted on the right AC measuring at 46cm. May access Order was put in. No complications during or after procedure. (SEE EMR for medications given) after procedure we then took patient to CT for a scan, Once CT scan was done we took patient back to room and bedside Report was given to Zully RAMSAY
[2024-05-25 12:52] LABS: Partial Thromboplastin Time 31.1 Seconds (22.0-36.0)
[2024-05-25] MEDS: DiphenhydrAMINE ELIX 25 MG/10 ML UDC 12.5 MG PO (13:54)
[2024-05-25] MEDS: ACETAMINOPHEN 325 MG TABLET 650 MG PO (13:54)
--- NOTE | 2024-05-25 14:30 | ESPR_ITS ---
<Statement entered by Elana Hernandez MD - 05/25/24 15:52> I discussed with and supervised my co-resident involved in the care of this patient. I agree with the assessment and plan as documented above. Patient had difficulty getting IV access for contrast, 5 attempts unsuccessful so PICC line was placed and patient was able to get to CT. CTA scan negative for PE. Will discontinue anticoagulation. Tachycardia improving, tachypneic but saturating well on room air; possibly 2/2 to pain from abdominal gas pain in the setting of decreased chest wall compliance from body habitus. Elana Hernandez MD PGY-3 Documentation for date of: 05/25/24 Subjective Subjective Interval history: Patient seen and examined at bedside. Stated that she felt better after PT session yesterday. Pt was sitting at edge of bed eating breakfast. Continues to complain of abdominal pain associated with gas. Started simethicone yesterday and still has not passed gas. IR placed PICC line and patient was taken for CTA chest which was negative for PE. Lateral lower extremity ultrasound also negative for DVT. Heparin drip was discontinued. Started on nifedipine 30 mg twice daily. Continue to monitor vitals, encouraging ambulation, spirometry. Exam Vital Signs Temp Pulse Resp BP Pulse Ox O2 Del Method O2 Flow Rate 98.1 F 103 H 24 H 151/90 H 95 Room Air 2 05/25/24 12:00 05/25/24 12:00 05/25/24 12:00 05/25/24 12:00 05/25/24 12:00 05/25/24 12:00 05/25/24 10:58 Narrative Exam General: Obese young lady, cooperative, sitting at bedside, day 4 HEENT: NCAT, No JVD noted. Mucosa moist. Pupils are equal and reactive to light bilaterally Cardiovascular: Normal S1 and S2. Slight Tachy, regular rhythm Respiratory: Clear to auscultation, no crackles no wheezing. Abdomen: Soft, nontender, not distended, left-sided tenderness : No vaginal bleeding, Sofia catheter in place, FANNIE drain in place minimal fluid collected Skin: Warm to touch, dry, no rashes noted Musculoskeletal: No gross injuries. Able to move all 4 extremities. No pitting edema Neuro: Alert and oriented x3. No focal neuro deficits. Psych: Normal affect and mood Objective Labs 05/25/24 03:30 05/25/24 03:30 Labs: Laboratory Results - last 24 hr 05/22/24 05/24/24 05/25/24 02:02 17:28 03:30 WBC 9.1 RBC 2.96 L Hgb 7.8 L Hct 23.9 L MCV 81 MCH 26.4 MCHC 32.6 RDW Std Deviation 51.7 H Plt Count 250 D Neut % (Auto) 72 Lymph % (Auto) 20 [place] % (Auto) 6 Eos % (Auto) 1 Baso % (Auto) 0 Neut # (Auto) 6.6 Lymph # (Auto) 1.9 [place] # (Auto) 0.6 Eos # (Auto) 0.1 Baso # (Auto) 0.0 Immature Gran # (Auto) 0.04 H Absolute Nucleated RBC 0.03 H Immature Gran % 0 Nucleated RBC % 0 APTT 28.5 28.7 Sodium 138 Potassium 3.4 Chloride 103 Carbon Dioxide 24.3 Anion Gap 11 BUN 8 L Creatinine 0.7 Estim Creat Clear Calc 191.9 eGFR > 60 BUN/Creatinine Ratio 11 L Glucose 117 H Calculated Osmolality 274 L Calcium 8.1 L Blood Type Antibody Screen Crossmatch See Detail Blood Bank Wristband ID 05/25/24 12:16 WBC RBC Hgb Hct MCV MCH MCHC RDW Std Deviation Plt Count Neut % (Auto) Lymph % (Auto) [place] % (Auto) Eos % (Auto) Baso % (Auto) Neut # (Auto) Lymph # (Auto) [place] # (Auto) Eos # (Auto) Baso # (Auto) Immature Gran # (Auto) Absolute Nucleated RBC Immature Gran % Nucleated RBC % APTT 31.1 Sodium Potassium Chloride Carbon Dioxide Anion Gap BUN Creatinine Estim Creat Clear Calc eGFR BUN/Creatinine Ratio Glucose Calculated Osmolality Calcium Blood Type O Positive Antibody Screen NEGATIVE Crossmatch See Detail Blood Bank Wristband ID Yes Quality Measures Quality Measures none Assessment & Plan Assessment Current Active Medications: Generic Name Dose Route Start Last Admin Trade Name Freq PRN Reason Stop Dose Admin Acetaminophen 650 mg 05/24/24 08:05 05/25/24 13:54 Acetaminophen 325 Mg Tablet PO 06/23/24 08:04 650 mg Q6HR PRN Administration FEVER >101 Hydrocodone Bitart/Acetaminophen 1 tab 05/21/24 16:17 05/24/24 22:25 Hydrocodone/Apap 5/325 Tablet PO 05/26/24 16:16 1 tab Q4HR PRN Administration Patient rated pain 7 to 8 Hydrocodone Bitart/Acetaminophen 2 tab 05/21/24 16:17 Hydrocodone/Apap 5/325 Tablet PO 05/26/24 16:16 Q6HR PRN Patient rated pain 9 to 10 Albuterol/Ipratropium 3 ml 05/25/24 00:11 Albuterol/Ipratropium (Duoneb) Rt Magui 3 Ml Nebu INH 06/24/24 00:10 Q2HR PRN SHORTNESS OF BREATH OR WHEEZE Diphtheria/Tetanus/Acell Pertussis 0.5 ml 05/21/24 16:17 Diphth,Pertuss(Acell),Tet Vac 0.5 Ml Vial IMi X1 PRN SEE COMMENTS Docusate Sodium 100 mg 05/24/24 00:35 05/24/24 22:26 Docusate Sod 100 Mg Capsule PO 06/23/24 00:34 100 mg BID PRN Administration ABDOMINAL CRAMPING Protocol Sodium Chloride 2,000 mls @ 500 mls/hr 05/22/24 04:37 Ns IV .Q4H PRN Blood Pressure - Low Measles/Mumps/Rubella Vaccine Live 0.5 ml 05/21/24 16:17 Measles, Mumps & Rubella Vacc 0.5 Ml Vial SCi X1 PRN if non-immune or equivocal Morphine Sulfate 2 mg 05/22/24 19:38 05/25/24 01:24 Morphine Sulf Inj 10 Mg/Ml Vial IVP 05/27/24 19:59 2 mg Q2HR PRN Administration PAIN SCALE 4-10(Mod-Sev Protocol Nifedipine 30 mg 05/24/24 21:00 05/25/24 10:06 Nifedipine Xl 30 Mg Tabcr PO 06/23/24 20:59 30 mg BID [place]TON Administration Simethicone 80 mg 05/23/24 18:07 05/25/24 01:17 Simethicone 80 Mg Chew PO 06/22/24 18:06 80 mg QID PRN Administration GAS Plan Nabila Mahmood is 23 yr female history of morbid obesity, Hyperlipidemia, fatty liver disease who is day 3. Internal medicine team was consulted for assessment of patient due to hypotension readings. She will be transferred to telemetry for closer monitoring. #PE ruled out Patient started having tachycardia, tachypnea, fever 101 in the morning but hemodynamically stable. Denying any shortness of breath, chest pain, no Wells score 9--high risk of PE, 37.5%. CTA chest unsuccessful due to continuous IV infiltration. PICC line placed today (05/25). CTA chest was completed -CTA chest negative for PE -B/L LE doppler negative for DVT -stop heparin drip #Shock-resolved #Hemoperitoneum-resolved #Acute blood loss anemia After no improvement seen on H&H posttransfusion, patient was taken for CT abdomen pelvis which showed bleeding and peritoneum. Ex?lap, done with OB Dr. Castro and gen surg Dr. Alford, showed no definite source of bleeding however significant for 1 L clot. -Monitor for any significant bleeding in FANNIE drain -Daily CBC -patient is now stable #HTN -continue nifedipine 30 mg BID #s/p day 3 #Hysterectomy #Hx hyperlipidemia #Obesity class III Health maintenance: Dispo: tele, monitoring vitals DVT prophylaxis: Heparin 5000 subq CODE STATUS: Full code Diet: Regular The patient's management plan was discussed with my attending physician Dr. Friedman and senior Dr. Hernandez. Rody Ann, PGY-1 Attending Provider Attestation/Addendum I, Chrissie Friedman, DO, attest that I was physically present for the bartholomew portions of the service and evaluated the patient with the resident and I reviewed and discussed the case with the resident and agree with the resident's findings and plans of care as documented above Patient seen and evaluated this AM. She reports feeling improved, just pain with movement. Patient is tearful and states that she is anxious to go home to be with her baby. IVs continued to infiltrate and unable to do CTA. A PICC line was placed and CTA was done. Negative for PE. US of b/l LE negative for DVT. Heparin was discontinued. Encouraged patient to ambulate and use IS. Started on nifedipine by primary due to hypertension. Patient is otherwise afebrile for the past 24hrs. Tachycardia has been resolved. Anticipate DC within next 24hr from IM standpoint.
--- NOTE | 2024-05-25 17:47 | ESPR_ITS ---
Documentation for date of: 05/25/24 Exam Vital Signs Temp Pulse Resp BP Pulse Ox O2 Del Method O2 Flow Rate 97.0 F 75 22 H 112/77 99 Room Air 2 05/25/24 15:23 05/25/24 15:23 05/25/24 15:23 05/25/24 15:23 05/25/24 15:23 05/25/24 12:00 05/25/24 15:23 Urinary Catheter Management Cath placed during this visit: no BUFFET RUNNER - PN: Obj Data Labs 05/25/24 03:30 05/25/24 03:30 Labs: Laboratory Results - last 24 hr 05/19/24 05/22/24 05/24/24 12:30 02:02 17:28 WBC RBC Hgb Hct MCV MCH MCHC RDW Std Deviation Plt Count Neut % (Auto) Lymph % (Auto) [place] % (Auto) Eos % (Auto) Baso % (Auto) Neut # (Auto) Lymph # (Auto) [place] # (Auto) Eos # (Auto) Baso # (Auto) Immature Gran # (Auto) Absolute Nucleated RBC Immature Gran % Nucleated RBC % APTT 28.5 Sodium Potassium Chloride Carbon Dioxide Anion Gap BUN Creatinine Estim Creat Clear Calc eGFR BUN/Creatinine Ratio Glucose Calculated Osmolality Calcium Blood Type Antibody Screen Crossmatch See Detail See Detail Blood Bank Wristband ID 05/25/24 05/25/24 03:30 12:16 WBC 9.1 RBC 2.96 L Hgb 7.8 L Hct 23.9 L MCV 81 MCH 26.4 MCHC 32.6 RDW Std Deviation 51.7 H Plt Count 250 D Neut % (Auto) 72 Lymph % (Auto) 20 [place] % (Auto) 6 Eos % (Auto) 1 Baso % (Auto) 0 Neut # (Auto) 6.6 Lymph # (Auto) 1.9 [place] # (Auto) 0.6 Eos # (Auto) 0.1 Baso # (Auto) 0.0 Immature Gran # (Auto) 0.04 H Absolute Nucleated RBC 0.03 H Immature Gran % 0 Nucleated RBC % 0 APTT 28.7 31.1 Sodium 138 Potassium 3.4 Chloride 103 Carbon Dioxide 24.3 Anion Gap 11 BUN 8 L Creatinine 0.7 Estim Creat Clear Calc 191.9 eGFR > 60 BUN/Creatinine Ratio 11 L Glucose 117 H Calculated Osmolality 274 L Calcium 8.1 L Blood Type O Positive Antibody Screen NEGATIVE Crossmatch See Detail Blood Bank Wristband ID Yes Impressions Impression: Examination: CTA chest with intravenous contrast 2-D reconstructions 3-D reconstructions, vascular Date and time of exam: May 25, 2024 1103 hours INDICATIONS: Onset chest pain shortness of breath today, clinical diagnosis pulmonary emboli CTDI: vol (mGy) 27 DLP: (mGycm) 672 Technique: Multiple axial sections of the thorax have been obtained. 3 mm slice thickness, from below the hemidiaphragms to above the apices of the lungs. Mediastinal and lung density settings have been obtained. 2-D sagittal and coronal reconstructions. 3-D angiographic renderings, 3-D volume renderings, 3D post processing, vascular maximum intensity projections obtained. Contrast administered is 100 cc Isovue-370 intravenous. Low dose protocols were performed. One or more of the following dose reduction techniques were used; automated exposure control, adjustment of the mA and/or KV according to patient size, use of iterative reconstruction technique. Findings: No thoracic aortic aneurysmal dilatation Pulmonary artery opacification is poor No gross pulmonary artery emboli Atelectasis versus mild pneumonia left base Small left pleural effusion No visualized liver or splenic lesion No definite gallstones Irregular contrast collection in the kidneys which can be seen with hypertension IMPRESSION: Limited opacification pulmonary arteries, no gross pulmonary artery emboli Atelectasis versus mild pneumonia left base BUFFET RUNNER - A/P Assessment and plan (1) S/P emergency hysterectomy: Status: Acute Assessment and plan: Evening Rounds CTPA was negative for PE. Possible left lower atelectasis vs early pneumonia (but she has no s/sx of infection). Patient doing really well- she was up and about when I saw her this evening. Feels much improved after 1u pRBCs (will be finished infusing in about 10 minutes). She had TWO bowel movement today. Tolerating diet no n/v. Sofia was removed and she has been voiding without issue. Nomotensive, pulse 75, RR 22, afebrile Now that she is meeting milestones and PE has been ruled out, may discharge home tomorrow if all goes well tonight. Heparin drip was discontinued. Plan to wait until am labs for the post-transfusion H/H since earlier draw won't mold insert changer Terri Castro MD (2) Post-op bleeding: Status: Acute (3) Hemoperitoneum: Status: Acute (4) Blood transfusion during current hospitalisation: Status: Acute (5) Atony of uterus with hemorrhage: Status: Acute Postoperative Procedures: Procedures Operation Date: 05/21/24 11:45 Actual Procedure Side Surgeon p in OB Not Applicable Terri Castro MD s Hysterectomy, Abdominal OB Not Applicable Terri Castro MD Operation Date: 05/22/24 01:40 Actual Procedure Side Surgeon p Exploratory Laparotomy, removal of blood clots and control of bleeding Not Applicable Terri Castro MD Time Spent With Patient Time: Total time spent is greater than 50% in coordination of care (as documented) at patient's floor/unit and/or counseling patient: Time with patient: less than 15 minutes
[2024-05-25] MEDS: HYDROcodone/APAP 5/325 TABLET 1 TAB PO (21:07)
[2024-05-26] VITALS: BP 127/85; PULSE 68; PULSE 92; RESP 20; TEMP 36.6; O2SAT 98
[2024-05-26 04:00] VITALS: BP 120/64; PULSE 66; PULSE 86; RESP 20; TEMP 36.7; O2SAT 97
[2024-05-26 05:56] LABS: Basophils % (Auto) 0 % (0-2.5); Eosinophils # (Auto) 0.2 Thou/mm3 (0.0-0.5); Eosinophils % (Auto) 2 % (0-10); Hematocrit 21.6 % (36.0-46.0); Immature Granulocytes % (Auto) 1 % (0-0); Immature Granulocytes Auto 0.04 Thou/mm3 (0.00-0.00); Lymphocytes # (Auto) 2.1 Thou/mm3 (1.0-4.8); Lymphocytes % (Auto) 31 % (10-50); Mean Corpuscular HGB Conc 32.4 g/dl (31.0-37.0); Mean Corpuscular Hemoglobin 26.6 pg (25.0-35.0); Mean Corpuscular Volume 82 fL (80-100); Monocytes # (Auto) 0.4 Thou/mm3 (0.0-0.8); Monocytes % (Auto) 6 % (0-12); Neutrophils # (Auto) 4.1 Thou/mm3 (1.8-7.7); Neutrophils % (Auto) 60 % (37-80); Nucleated Red Blood Cell % 0 /100 WBC (0); Platelet Count 249 Thou/mm3 (140-440); Red Blood Count 2.63 Miln/mm3 (4.00-5.20); White Blood Count 6.8 Thou/mm3 (3.6-11.0)
[2024-05-26 06:00] VITALS: BMI 59.1
[2024-05-26 06:29] LABS: Prothrombin Time 11.4 Seconds (9.0-12.2)
[2024-05-26 06:44] LABS: Anion Gap 8 (7-16); BUN/Creatinine Ratio 15 Ratio (12-20); Blood Urea Nitrogen 6 mg/dL (9-23); Carbon Dioxide 21.8 mMol/L (20.0-31.0); Chloride 115 mMol/L (98-107); Creatinine (Component) 0.4 mg/dL (0.6-1.3); Estimated Creatinine Clearance 335.8 mL/min (>60); Glucose 70 mg/dL (74-106); Osmolality,Calculated 284 (275-295); Potassium 2.9 mMol/L (3.4-5.1); Sodium 145 mMol/L (136-145); eGFR > 60 See Note
[2024-05-26 07:17] LABS: Calcium 6.7 mg/dL (8.3-10.6)
--- NOTE | 2024-05-26 07:21 | PD.GYNPROG ---
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 - PN: Obj Data Labs 05/26/24 05:00 05/26/24 05:00 Labs: Laboratory Results - last 24 hr 05/19/24 05/25/24 05/26/24 12:30 12:16 05:00 WBC 6.8 RBC 2.63 L Hgb 7.0 L Hct 21.6 L* MCV 82 MCH 26.6 MCHC 32.4 RDW Std Deviation 51.0 H Plt Count 249 Neut % (Auto) 60 Lymph % (Auto) 31 [place] % (Auto) 6 Eos % (Auto) 2 Baso % (Auto) 0 Neut # (Auto) 4.1 Lymph # (Auto) 2.1 [place] # (Auto) 0.4 Eos # (Auto) 0.2 Baso # (Auto) 0.0 Immature Gran # (Auto) 0.04 H Absolute Nucleated RBC 0.00 Immature Gran % 1 H Nucleated RBC % 0 PT 11.4 INR 1.0 APTT 31.1 31.0 Sodium 145 Potassium 2.9 L D Chloride 115 H Carbon Dioxide 21.8 Anion Gap 8 BUN 6 L Creatinine 0.4 L Estim Creat Clear Calc 335.8 eGFR > 60 BUN/Creatinine Ratio 15 Glucose 70 L Calculated Osmolality 284 Calcium 6.7 L* Blood Type O Positive Antibody Screen NEGATIVE Crossmatch See Detail See Detail Blood Bank Wristband ID Yes LEISURE STUDIES PROFESSOR - A/P Assessment and plan (1) S/P emergency hysterectomy: Status: Acute Assessment and plan: Nabila is a 23yo POD 4 s/p ex-lap (OR take-back) with evacuation of 1L of clotted hemoperitoneum and placement of FANNIE drain, POD 5 s/p life-saving supracervical hysterectomy for severe hemorrhage related to unresolvable uterine atony. She received 4u pRBCs in total between intra-op and post-op after hysterectomy, but did not have the anticipated rise in hemoglobin, so CT abdomen/pelvis was performed which showed large hemoperitoneum with possible bleeding from right side of pelvis. Ex-lap was significant for 1L clotted hemoperitoneum, but no source of bleeding was observed after extensive observation, and thus FANNIE drain was placed to observe for any further bleeding. During ex-lap she received another 2u pRBCs, 2u FFP, and albumin with calcium. Plan was for CTPA on 05/24, but IV infiltrated contrast and so she was started on Heparin drip 05/20 high Wells score. She has never had chest pain, palpitations, dyspnea or SOB. CTPA was negative for PE on 05/25 and Heparin drip was discontinued. She was transfused 1 more unit pRBCs on 05/25 since she still had tachycardia and elevated RR. Nabila is doing really well. She is ambulating without lightheadedness. Tolerating regular diet with no nausea/vomiting. Had BM x2 yesterday. Sofia was removed yesterday morning and she has been voiding without issue. Normotensive, pulse 86, RR 20, satting 97% in RA, afebrile She is awake and conversant, no acute distress, not diaphoretic Abdomen: soft, appropriately tender to palpation around incision, non-distended, no rebound/guarding. Dry/clean/intact prineo bandage overlying pfannenstiel incision. No erythema/induration/drainage. Previous 5mm FANNIE drain site in RLQ has no erythema/induration/drainage. Extremities: no pain with palpation of calves, trace BLE edema, SCDs in place Suspect AM lab draw was diluted by the way it was obtained from line and NOT ACCURATE WBC 6.8 (from 9.1) Hgb 7 (from 7.8) Plt 249 Creatinine 0.4 (from 0.7) (multiple other elements of CMP are low as well- supporting the conclusion that labs are not accurate) A/P: POD 4 s/p ex-lap (OR take-back) with evacuation of 1L of clotted hemoperitoneum and placement of FANNIE drain, POD 5 s/p life-saving supracervical hysterectomy for severe hemorrhage related to unresolvable uterine atony. Total blood products received: 7u pRBCs, 2 FFP. Meeting all milestones. Hemodynamically stable. No evidence of infection. STAT re-draw of H/H and CMP, suspect will be normal given normalization of patient's vital signs and whole clinical picture after receiving transfusion last night. If labs normal, plan for discharge home this morning Discharge meds sent to pharmacy: motrin 800mg PO Q8hr prn pain, norco 5/325mg PO Q6hr prn pain, colace 100mg PO BID, ferrous sulfate 325mg PO BID, nifedipine 30mg PO BID Regular diet Encouraged ambulation Encouraged use of IS Discussed follow up in [address] Melendez for incision check. Discussed return precautions Terri Castro MD (2) Post-op bleeding: Status: Acute (3) Hemoperitoneum: Status: Acute (4) Blood transfusion during current hospitalisation: Status: Acute (5) Atony of uterus with hemorrhage: Status: Acute Postoperative Procedures: Procedures Operation Date: 05/21/24 11:45 Actual Procedure Side Surgeon p in OB Not Applicable Terri Castro MD s Hysterectomy, Abdominal OB Not Applicable Terri Castro MD Operation Date: 05/22/24 01:40 Actual Procedure Side Surgeon p Exploratory Laparotomy, removal of blood clots and control of bleeding Not Applicable Terri Castro MD Time Spent With Patient Time: Total time spent is greater than 50% in coordination of care (as documented) at patient's floor/unit and/or counseling patient: Time with patient: 25 - 35 minutes
[2024-05-26 08:00] VITALS: BP 123/78; PULSE 66; PULSE 94; RESP 18; TEMP 37.2; O2SAT 96
[2024-05-26 08:29] LABS: Hemoglobin 9.1 g/dL (12.0-16.0)
[2024-05-26] MEDS: SIMETHICONE 80 MG CHEW PO (08:43)
[2024-05-26 08:44] VITALS: BP 123/78; PULSE 66
[2024-05-26 08:44] LABS: Alanine Aminotransferase 9 U/L (10-49); Albumin, Serum 3.4 gm/dL (3.5-5.0); Albumin/Globulin Ratio 1.4 (1.2-2.2); Alkaline Phosphatase 90 U/L (46-116); Anion Gap 8 (7-16); Aspartate Amino Transferase 15 U/L (0-34); BUN/Creatinine Ratio 12 Ratio (12-20); Bilirubin,Total 0.4 mg/dL (0.3-1.2); Blood Urea Nitrogen 7 mg/dL (9-23); Calcium 8.2 mg/dL (8.3-10.6); Calcium (Corrected) 8.7 mg/dL (8.5-10.1); Carbon Dioxide 26.1 mMol/L (20.0-31.0); Chloride 107 mMol/L (98-107); Creatinine (Component) 0.6 mg/dL (0.6-1.3); Estimated Creatinine Clearance 223.8 mL/min (>60); Globulin 2.4 gm/dL (2.3-3.5); Glucose 102 mg/dL (74-106); Osmolality,Calculated 279 (275-295); Potassium 3.5 mMol/L (3.4-5.1); Sodium 141 mMol/L (136-145); Total Protein 5.8 gm/dL (5.7-8.2); eGFR > 60 See Note
[2024-05-26] MEDS: HYDROcodone/APAP 5/325 TABLET 1 TAB PO (08:44)
[2024-05-26] MEDS: NIFEdipine XL 30 MG TABCR PO (08:44)
[2024-05-26] MEDS: POTASSIUM CHLORIDE 20 mEq TABCR 40 MEQ PO (10:16)
[2024-05-26 12:00] VITALS: BP 130/85; PULSE 81; RESP 20; TEMP 36.4; O2SAT 99
--- NOTE | 2024-05-26 12:44 | ESDS_ITS ---
DS: Providers Provider Date of admission: 05/19/24 11:42 Primary care physician: Physician No Primary/Family Admitting Provider: Terri Castro MD Attending Provider on Admission: Chrissie Friedman DO Consults: 05/21/24 13:26 Consult to Steam Frame Operator Stat Comment: Consulting Provider: Zohra Mccord 05/21/24 16:17 Referral Routine Comment: 05/23/24 18:08 Referral Physical Therapy Routine Comment: Physician Instructions: Instructions: Please assist with teaching patient tactics on getting out of bed comfortably and ambulating status post abdominal surgery, BMI >50 Attending Provider on DC: Doris Melendez MD Discharging Provider: Doris Melendez MD DS: Diagnosis Problem List Completed Was Problem List Reviewed/Reconciled?: Yes Summary/Hosp Course Brief History: Nabila is a 23yo POD 4 s/p ex-lap (OR take-back) with evacuation of 1L of clotted hemoperitoneum and placement of FANNIE drain, POD 5 s/p life-saving supracervical hysterectomy for severe hemorrhage related to unresolvabl e uterine atony. She received 4u pRBCs in total between intra-op and post-op after hysterectomy, but did not have the anticipated rise in hemoglobin, so CT abdomen/pelvis was performed which showed large hemoperitoneum with possible bleeding from right side of pelvis. Ex-lap was significant for 1L clotted hemoperitoneum, but no source of bleeding was observed after extensive observation, and thus FANNIE drain was placed to observe for any further bleeding. During ex-lap she received another 2u pRBCs, 2u FFP, and albumin with calcium. Patient seen at the bedside is doing really well has been ambulating, passing gas already had a bowel movement. Patient has been tolerating p.o. diet without nausea vomiting. Patient denies any dizziness while ambulation. Hemoglobin has appropriately gone up after the unit of transfusion yesterday Peripartum Data Procedures: Procedures Operation Date: 05/21/24 11:45 Actual Procedure Side Surgeon p in OB Not Applicable Terri Castro MD s Hysterectomy, Abdominal OB Not Applicable Terri Castro MD Operation Date: 05/22/24 01:40 Actual Procedure Side Surgeon p Exploratory Laparotomy, removal of blood clots and control of bleeding Not Applicable Terri Castro MD Status at Discharge Cognitive/behavioral status at discharge: Stable Time Spent with Patient Time attestation: Total time spent providing and/or coordinating discharge services: Exam Vital Signs Temp Pulse Resp BP Pulse Ox O2 Del Method O2 Flow Rate 97.6 F 81 20 130/85 H 99 Room Air 2 05/26/24 12:00 05/26/24 12:00 05/26/24 12:00 05/26/24 12:00 05/26/24 12:00 05/26/24 12:00 05/25/24 15:23 Constitutional Constitutional: no acute distress Routine HEENT Exam Head: Present normocephalic and atraumatic Eye: Present EOMI and PERRL ENT: Present mucous membranes moist Routine Neck Exam Neck: Present supple and trachea midline Routine Respiratory Exam Respiratory: Present chest non-tender, lungs clear, normal breath sounds and no resp distress Routine Cardiovascular Exam Cardiovascular: Present RRR Routine Abdominal Exam Abdominal: Present soft and normoactive bowel sounds Routine Extremities Exam Extremities: Present full ROM Routine Skin Exam Skin: Present intact, dry and warm Routine Neurological Exam Neurological: Present alert, oriented X3 and CN II-XII intact Routine Psychiatric Exam Psychiatric: Present normal affect and normal thought process Discharge Plan Plan Patient Disposition: HOME (Self Care) Patient condition on transfer: Stable Prescriptions/Referrals Prescriptions/Med Rec: New hydrocodone-acetaminophen 5-325 mg Tablet 1 tab PO Q6H MDD 4 tablets PRN (Reason: Patient rated pain 7 to 8) 10 Days Qty: 20 0RF docusate sodium 100 mg Capsule 100 mg PO BID PRN (Reason: Abdominal Cramping) 10 Days Qty: 20 0RF nifedipine 30 mg Tablet Extended Release 24hr 30 mg PO BID 30 Days Qty: 60 0RF ibuprofen 800 mg tablet 800 mg PO Q8H PRN (Reason: pain) 10 Days Qty: 30 0RF ferrous sulfate 325 mg (65 mg iron) tablet 325 mg PO BID Qty: 90 0RF Continued nifedipine [Procardia XL] 60 mg Tablet Extended Release 24hr PO QDAY Discontinued vit-ferrous sulfat-FA 27 mg iron- 0.8 mg Tablet 1 tab PO QDAY aspirin 81 mg Capsule 81 mg PO QDAY Referrals: No Primary/Family,Physician [Primary Care Provider] - Patient/Caregiver Discharge Instructions Meds to Beds: No Discharge Activity: activity as tolerated and other Other Discharge Activity Instructions:: Vaginal rest and no heavy lifting greater than 10 pounds for 6 weeks. Keep incision clean and dry, do not submerge. No driving while taking narcotic. Other Discharge Diet Instructions: Regular diet Education Materials: Anemia, Abdominal Hysterectomy Dc, C Section Dc Print Language: Tamazight Activity Restrictions/Additional Instructions: Follow up in clinic with Dr. Melendez in 1 week for incision check, call clinic for appointment. Return to hospital for fevers (temp greater than 100.4F), chills, muscle aches, any signs of wound infection such as redness of incision or drainage. Fainting or near-fainting. Heavy vaginal bleeding. Stand Alone Forms: Liz Award Info., Patient Portal Info Letter Discharge Order Discharge Orders: Discharge (Routine); Ordered 05/26/24 Ordered By: Doris Melendez Planned Discharge Date 05/26/24
--- NOTE | 2024-05-26 14:18 | PD.RESPRO ---
Documentation for date of: 05/26/24 Subjective Subjective Interval history: Patient seen and examined at bedside. Patient has improved blood pressure control with nifedpine 30 mg BID. Saturating adequately at 98%o2 on RA and remains afebrile. PE has been ruled out. Patient received 1 unit PRBC yesterday. Repeat H&H this morning shows improved hemoglobin 9.1, potassium 3.5, corrected calcium 8.7. Has had bowel movement this morning, abdominal pain slightly improving, making good progress with PT. Patient is eager to go home. IM team will sign off as patient remains stable. Please recall as needed. Exam Vital Signs Temp Pulse Resp BP Pulse Ox O2 Del Method O2 Flow Rate 97.6 F 81 20 130/85 H 99 Room Air 2 05/26/24 12:00 05/26/24 12:00 05/26/24 12:00 05/26/24 12:00 05/26/24 12:00 05/26/24 12:00 05/25/24 15:23 Narrative Exam General: Obese young lady, cooperative, sitting at bedside, day 5 HEENT: NCAT, No JVD noted. Mucosa moist. Pupils are equal and reactive to light bilaterally Cardiovascular: Normal S1 and S2. RRR Respiratory: Clear to auscultation, no crackles no wheezing. Abdomen: Soft, nontender, not distended, left-sided tenderness : No vaginal bleeding, no discharge Skin: Warm to touch, dry, no rashes noted Musculoskeletal: No gross injuries. Able to move all 4 extremities. No pitting edema Neuro: Alert and oriented x3. No focal neuro deficits. Psych: Normal affect and mood Objective Labs 05/26/24 07:56 05/26/24 07:56 Labs: Laboratory Results - last 24 hr 05/19/24 05/25/24 05/26/24 12:30 12:16 05:00 WBC 6.8 RBC 2.63 L Hgb 7.0 L Hct 21.6 L* MCV 82 MCH 26.6 MCHC 32.4 RDW Std Deviation 51.0 H Plt Count 249 Neut % (Auto) 60 Lymph % (Auto) 31 [place] % (Auto) 6 Eos % (Auto) 2 Baso % (Auto) 0 Neut # (Auto) 4.1 Lymph # (Auto) 2.1 [place] # (Auto) 0.4 Eos # (Auto) 0.2 Baso # (Auto) 0.0 Immature Gran # (Auto) 0.04 H Absolute Nucleated RBC 0.00 Immature Gran % 1 H Nucleated RBC % 0 PT 11.4 INR 1.0 APTT 31.0 Sodium 145 Potassium 2.9 L D Chloride 115 H Carbon Dioxide 21.8 Anion Gap 8 BUN 6 L Creatinine 0.4 L Estim Creat Clear Calc 335.8 eGFR > 60 BUN/Creatinine Ratio 15 Glucose 70 L Calculated Osmolality 284 Calcium 6.7 L* Corrected Calcium Total Bilirubin AST ALT Alkaline Phosphatase Total Protein Albumin Globulin Albumin/Globulin Ratio Blood Type O Positive Antibody Screen NEGATIVE Crossmatch See Detail See Detail Blood Bank Wristband ID Yes 05/26/24 07:56 WBC RBC Hgb 9.1 L D Hct 28.0 L MCV MCH MCHC RDW Std Deviation Plt Count Neut % (Auto) Lymph % (Auto) [place] % (Auto) Eos % (Auto) Baso % (Auto) Neut # (Auto) Lymph # (Auto) [place] # (Auto) Eos # (Auto) Baso # (Auto) Immature Gran # (Auto) Absolute Nucleated RBC Immature Gran % Nucleated RBC % PT INR APTT Sodium 141 Potassium 3.5 D Chloride 107 Carbon Dioxide 26.1 Anion Gap 8 BUN 7 L Creatinine 0.6 Estim Creat Clear Calc 223.8 eGFR > 60 BUN/Creatinine Ratio 12 Glucose 102 Calculated Osmolality 279 Calcium 8.2 L D Corrected Calcium 8.7 Total Bilirubin 0.4 AST 15 ALT 9 L Alkaline Phosphatase 90 Total Protein 5.8 Albumin 3.4 L D Globulin 2.4 Albumin/Globulin Ratio 1.4 Blood Type Antibody Screen Crossmatch Blood Bank Wristband ID Quality Measures Quality Measures none Assessment & Plan Assessment Current Active Medications: Generic Name Dose Route Start Last Admin Trade Name Freq PRN Reason Stop Dose Admin Acetaminophen 650 mg 05/24/24 08:05 05/25/24 13:54 Acetaminophen 325 Mg Tablet PO 06/23/24 08:04 650 mg Q6HR PRN Administration FEVER >101 Hydrocodone Bitart/Acetaminophen 1 tab 05/21/24 16:17 05/26/24 08:44 Hydrocodone/Apap 5/325 Tablet PO 05/26/24 16:16 1 tab Q4HR PRN Administration Patient rated pain 7 to 8 Hydrocodone Bitart/Acetaminophen 2 tab 05/21/24 16:17 Hydrocodone/Apap 5/325 Tablet PO 05/26/24 16:16 Q6HR PRN Patient rated pain 9 to 10 Albuterol/Ipratropium 3 ml 05/25/24 00:11 Albuterol/Ipratropium (Duoneb) Rt Magui 3 Ml Nebu INH 06/24/24 00:10 Q2HR PRN SHORTNESS OF BREATH OR WHEEZE Diphtheria/Tetanus/Acell Pertussis 0.5 ml 05/21/24 16:17 Diphth,Pertuss(Acell),Tet Vac 0.5 Ml Vial IMi X1 PRN SEE COMMENTS Docusate Sodium 100 mg 05/24/24 00:35 05/24/24 22:26 Docusate Sod 100 Mg Capsule PO 06/23/24 00:34 100 mg BID PRN Administration ABDOMINAL CRAMPING Protocol Sodium Chloride 2,000 mls @ 500 mls/hr 05/22/24 04:37 Ns IV .Q4H PRN Blood Pressure - Low Measles/Mumps/Rubella Vaccine Live 0.5 ml 05/21/24 16:17 Measles, Mumps & Rubella Vacc 0.5 Ml Vial SCi X1 PRN if non-immune or equivocal Morphine Sulfate 2 mg 05/22/24 19:38 05/25/24 01:24 Morphine Sulf Inj 10 Mg/Ml Vial IVP 05/27/24 19:59 2 mg Q2HR PRN Administration PAIN SCALE 4-10(Mod-Sev Protocol Nifedipine 30 mg 05/24/24 21:00 05/26/24 08:44 Nifedipine Xl 30 Mg Tabcr PO 06/23/24 20:59 30 mg BID [place] Administration Simethicone 80 mg 05/23/24 18:07 05/26/24 08:43 Simethicone 80 Mg Chew PO 06/22/24 18:06 80 mg QID PRN Administration GAS Plan Nabila Mahmood is 23 yr female history of morbid obesity, Hyperlipidemia, fatty liver disease who is day 3. Internal medicine team was consulted for assessment of patient due to hypotension readings. She will be transferred to telemetry for closer monitoring. #PE ruled out Patient started having tachycardia, tachypnea, fever 101 in the morning but hemodynamically stable. Denying any shortness of breath, chest pain, no Wells score 9--high risk of PE, 37.5%. CTA chest unsuccessful due to continuous IV infiltration. PICC line placed today (05/25). CTA chest was completed -CTA chest negative for PE -B/L LE doppler negative for DVT -stop heparin drip #Shock-resolved #Hemoperitoneum-resolved #Acute blood loss anemia After no improvement seen on H&H posttransfusion, patient was taken for CT abdomen pelvis which showed bleeding and peritoneum. Ex?lap, done with OB Dr. Castro and gen surg Dr. Alford, showed no definite source of bleeding however significant for 1 L clot. -Daily CBC -patient is now stable #HTN -continue nifedipine 30 mg BID #s/p day 3 #Hysterectomy #Hx hyperlipidemia #Obesity class III Health maintenance: Dispo: tele, monitoring vitals DVT prophylaxis: Heparin 5000 subq CODE STATUS: Full code Diet: Regular Patient is cleared from for discharge from IM standpoint. The patient's management plan was discussed with my attending physician Dr. Friedman and senior Dr. Hernandez. Rody Ann, PGY-1 Attending Provider Attestation/Addendum Morgan, Chrissie Friedman, DO, attest that I was physically present for the bartholomew portions of the service and evaluated the patient with the resident and I reviewed and discussed the case with the resident and agree with the resident's findings and plans of care as documented above Patient seen and evaluated this AM. She states she is feeling well. No acute events overnight. Patient had a BM this morning. She denies any shortness of breath, chest pain, lightheadedness, nausea or vomiting. No signs of active bleeding noted. She remains hemodynamically stable. She reports some pain at site only. Patient is stable for discharge from IM standpoint.
[2024-05-26 14:42] VITALS: PULSE 88; RESP 24; RESP 98; O2SAT 98
== END 2024-05-26 15:00 | disposition home or self-care (01) | DRG 540 ==
LOC: S4SX 05-21 12:23 → S4NX 05-21 12:47 → S2NX 05-21 19:53 → S2SX 05-22 04:25 → S2NX 05-22 12:45
PROVIDERS: Anesthesiology; Internal Medicine; Student in an Organized Health Care Education/Training Program; Admitting Provider Obstetrics & Gynecology; Visit Provider Internal Medicine
PROC: 0UT90ZZ Resection of Uterus, Open Approach (ICD-10-PCS; CPT 59514; principal; 2024-05-21 11:30)
PROC: 0UT90ZZ Resection of Uterus, Open Approach (ICD-10-PCS; 2024-05-21 11:30)
PROC: 0W9G00Z Drainage of Peritoneal Cavity with Drainage Device, Open Approach (ICD-10-PCS; CPT 49000; principal; 2024-05-22 01:40)
DX: O10.92 Unspecified pre-existing hypertension complicating childbirth (principal); O99.214 Obesity complicating childbirth; Z3A.39 39 weeks gestation of pregnancy; Z37.0 Single live birth; E66.01 Morbid (severe) obesity due to excess calories; O62.0 Primary inadequate contractions; O99.284 Endocrine, nutritional and metabolic diseases complicating childbirth; E78.5 Hyperlipidemia, unspecified; O26.62 Liver and biliary tract disorders in childbirth; K76.0 Fatty (change of) liver, not elsewhere classified; O99.892 Other specified diseases and conditions complicating childbirth; R73.03 Prediabetes; O99.02 Anemia complicating childbirth; O72.1 Other immediate postpartum hemorrhage; K66.1 Hemoperitoneum; R57.8 Other shock; D62 Acute posthemorrhagic anemia
CPT/HCPCS: 36415; 59409; 71275; 74177; 76815; 80048; 80053; 80307; 81001; 82570; 83605; 83735; 84100; 84156; 84550; 85014; 85018; 85025; 85384; 85610; 85730; 86780; 86850; 86900; 86901; 86920; 86923; 86927; 93970; 94640; 94762; 97162; A4217; A4649; A9270; C1751; C1894; J0131; J0456; J0689; J0690; J1100; J1642; J1643; J1644; J1885; J1940; J2210; J2250; J2270; J2371; J2405; J2550; J2590; J2704; J2710; J2795; J3010; J3490; J7050; J7120; P9016; P9040; P9045; P9060; Q9967; J1596; J1805

== ENCOUNTER 2024-11-05 21:57 | Emergency (ER) | payer MEDICAID, SELFPAY ==
[2024-11-05 21:58] VITALS: BMI 54.9
[2024-11-05 22:32] VITALS: BP 158/103; PULSE 84; RESP 19; TEMP 37.1; O2SAT 98
--- NOTE | 2024-11-05 22:43 | PD.EDSKIN ---
ED Skin Abcess FB-RME/HPI General Chief complaint: Skin/Abscess/Foreign Body Stated complaint: SORE ON GROIN AREA BY CSECTION SCAR Time Seen by Provider: 11/05/24 22:23 Arrival date/time: 11/05/24 21:57 This is a case of 24-year-old female with no medical history came in in the emergency room due to painful lump in the mons pubis near the pelvic area for 8 days worsening of the pain redness and swelling thus patient decided to sought consult here in the emergency room Limitations: no limitations Related Data Home Medications ?Medication ?Instructions ?Recorded ?Confirmed nifedipine 60 mg tablet,extended mg PO QDAY 05/14/24 release 24 hr (Procardia XL) Previous Rx's ?Medication ?Instructions ?Recorded ferrous sulfate 325 mg (65 mg 325 mg PO BID #90 tabs 05/26/24 iron) tablet clindamycin HCl 300 mg capsule 300 mg PO Q6H 10 days #40 caps 11/05/24 hydrocodone 5 mg-acetaminophen 325 1 tab PO Q6H PRN pain, severe #10 11/05/24 mg tablet tabs sulfamethoxazole 800 1 tab PO Q12H 10 days #20 tabs 11/05/24 mg-trimethoprim 160 mg tablet (Bactrim DS) Allergies Allergy/AdvReac Type Severity Reaction Status Date / Time No Known Allergies Allergy Verified 05/19/24 12:30 Review of Systems Review of Systems Systems Reviewed: All systems reviewed, normal except as documented Constitutional Constitutional: Reports system reviewed and no additional complaints, except as documented, Reports as per HPI, Denies chills and Denies fever(s) Cardiovascular Cardiovascular: Reports system reviewed and no additional complaints, except as documented, Reports as per HPI, Denies chest pain and Denies dyspnea Respiratory Respiratory: Reports system reviewed and no additional complaints, except as documented, Reports as per HPI, Denies cough and Denies dyspnea Gastrointestinal Gastrointestinal: Reports system reviewed and no additional complaints, except as documented, Reports as per HPI, Denies abdominal pain, Denies nausea and Denies vomiting Genitourinary Genitourinary: Reports system reviewed and no additional complaints, except as documented and Reports as per HPI Musculoskeletal Musculoskeletal: Reports system reviewed and no additional complaints, except as documented and Reports as per HPI Integumentary/Breasts Skin/Breast: Reports other (abscess) Neurologic Neurologic: Reports system reviewed and no additional complaints, except as documented and Reports as per HPI Past Medical History Past Medical History NEUROLOGIC: Negative Neurological Disorders or Seizures CARDIAC: Positive Cardiac Disorders (HTN) and Hypertension; Negative Myocardial Infarction, Cardiac Arrhythmia, Atrial Fibrillation, Angina, Heart Murmur, Coronary Artery Disease, Atherosclerotic Heart Disease, Peripheral Vascular Disease, Hypercholesterolemia, Aneurysm, Congestive Heart Failure, Congenital Heart Disease, Valvular Heart Disease, Rheumatic Fever, Cardiomyopathy, Edema, Pericarditis, Cellulitis, Deep Vein Thrombosis, Hypotension or Varicose Veins RESPIRATORY: Positive Asthma; Negative Chronic Obstructive Pulmonary Disease (COPD), Bronchitis, Emphysema, Pneumonia, Pulmonary Fibrosis, Cystic Fibrosis, Tuberculosis, Pulmonary Embolism, Pulmonary Edema or Sleep Apnea GASTROINTESTINAL: Positive Obesity; Negative Gastrointestinal Disorders, Hepatitis, Cirrhosis, Pancreatitis, Celiac Disease, Gall Bladder Disease, Gastrointestinal Bleed, Esophageal Varices, Sidhu's Esophagus, Colitis, Ulcerative Colitis, Diverticulitis, Diverticulosis, Ulcer, Irritable Bowel, Crohn's Disease, Obstructive Bowel, Hiatal Hernia, Hemorrhoids or Gastroesophageal Reflux Disease GENITOURINARY: Negative Genitourinary Disorders, Renal Disease, Kidney Stones, Polycystic Kidney Disease, Neurogenic Bladder, Inguinal Hernia, Dialysis or Benign Prostatic Hyperplasia REPRODUCTIVE: Negative Endometriosis, Genital Herpes, Gonorrhea, Pelvic Inflammatory Disease, Previous Pregnancies, Syphilis or Uterine Prolapse MUSCULOSKELETAL: Negative Musculoskeletal Disorders ENDOCRINE: Negative Endocrine Disorders, Diabetes Mellitus Type 1, Diabetes Mellitus Type 2, Ashlye's Syndrome, Sarbjit's Disease or Adrenal Disease HEMATOLOGIC: Positive Blood Disorders and Anemia; Negative Leukemia, Hemophilia, Thalassemia, Sickle Cell Disease or Clotting Problems PSYCHO/SOCIAL: Positive Depression and Anxiety; Negative Psychiatric Problems, Schizophrenia, Recreational Drug Use, Bipolar Disorder, Behavior Problems, Self-Mutilation, Attention Deficit Disorder, Attention Deficit Hyperactivity Disorder, Depression, Post Traumatic Stress Disorder or Eating Disorder OTHER HISTORY: Positive Blood Transfusions; Negative Hospitalization, Autoimmune Disease, Down Syndrome, Autism, Developmental Delay, Shingles, Falls, Blood Transfusion Reaction, Anesthesia Reactions, Organ Transplant, Chemotherapy, Radiation Therapy, Hyperbaric Therapy, MRSA, VRSA, Vancomycin-Resistant Enterococci, Human Immunodeficiency Virus (HIV), Chicken Pox, Measles, Mumps, Rubella ([place]aced[place] Measles), Pertussis, Clostridium Difficile or Cancer Family History FAMILY HISTORY: Negative Family Psychiatric Problems, Family Respiratory Disorders, Family Cardiac Disorders, Family Gastrointestinal Problems, Family Cancer, Family Surgery or Family Anesthesia Reaction Surgical History SURGICAL: Negative Pacemaker or Organ Transplant Social History SMOKING STATUS: Never smoker SECOND HAND EXPOSURE: No ED Exam General Limitations: Present no limitations General appearance: Present alert, in no apparent distress and other (Patient is awake alert oriented not in distress nontoxic looking) Head Head exam: Present atraumatic, normocephalic and normal inspection Eye Eye exam: Present normal appearance, PERRL and EOMI ENT ENT exam: Present normal exam, normal oropharynx and mucous membranes moist Neck Neck exam: Present normal inspection, full ROM and trachea midline Chest Chest inspection: Present normal inspection and symmetric chest wall rise Respiratory Respiratory exam: Present normal lung sounds bilaterally; Absent respiratory distress, wheezes, stridor, accessory muscle use or prolonged expiratory phase Cardiovascular Cardiovascular exam: Present regular rate, normal rhythm and normal heart sounds; Absent bradycardia, tachycardia, irregular rhythm, systolic murmur or diastolic murmur Abdominal Exam Abdominal exam: Present soft and normal bowel sounds; Absent distention, tenderness, guarding, rebound, rigidity, diminished bowel sounds, hyperactive bowel sounds, hypoactive bowel sounds or organomegaly Extremities Exam Extremities exam: Present normal inspection and full ROM Back Exam Back exam: Present normal inspection and full ROM Neurological Exam Neurological exam: Present alert, oriented X3, CN II-XII intact, normal gait and reflexes normal; Absent motor sensory deficit Psychiatric Psychiatric exam: Present normal affect and normal mood Skin Skin exam: Present warm, dry, intact, normal color and other (Noted a 2 cm lump tender to touch with redness swelling on the mons pubis near the pelvic area no discharge hard to touch no cellulitis no fluctuance none indurated) Course Quality Measures none Orders Category Date Time Status Clindamycin Vial [Cleocin vial] Med 11/05/24 22:37 Discontinued 600 mg IM X1 ONE HYDROcodone*/APAP 5/325 [[place] 5/325] Med 11/05/24 22:37 Pending 1 tab PO X1 ONE Vital Signs Vital signs: Vital Signs Temperature 98.8 F 11/05/24 22:32 Pulse Rate 84 11/05/24 22:32 Respiratory Rate 19 11/05/24 22:32 Blood Pressure 158/103 H 11/05/24 22:32 Pulse Oximetry (%) 98 11/05/24 22:32 Oxygen Delivery Method Room Air 11/05/24 22:32 Patient is afebrile not tachycardic not tachypneic BP was rechecked and noted to be 145/85 not hypoxic oxygen saturation in room air 98% Skin / Abscess / Foreign Body MDM Narrative MDM Narrative:: This is a case of 24-year-old female with no medical history came in in the emergency room due to painful lump in the mons pubis near the pelvic area for 8 days worsening of the pain redness and swelling thus patient decided to sought consult here in the emergency room physical examination patient is awake alert oriented not in distress nontoxic looking well-hydrated well-nourished noted a 2 cm painful lump on the mons pubis tender to touch hard to touch with redness around the lump but no discharge no cellulitis no fluctuance nonindurated at the time of exam there is no indication to perform incision and drainage I will start the patient on antibiotic treatment patient was given clindamycin IM here in the emergency room and [place] for pain patient pain was improved and resolved patient was prescribed with clindamycin and Bactrim for cutaneous abscess and she was advised to return in 2 days for evaluation and possible incision and drainage worsening symptoms or any emergent concerns she will return in the emergency room immediately or call 911 Patient was discharged with comfortable condition walking with stable gait. Patient verbalized no further complains explained diagnosis and answered patient question. Patient is comfortable with the proposed management plan including the need to follow up with his/her primary care physician and any specialist if applicable Discussed patient for any urgent condition or worsening sx, He/She needed to go to emergency room immediately or call 911. Patient acknowledge the responsibility to follow up as instructed and to monitor her/his symptoms. For any persistence of the symptoms for more than 3-5 days return precaution advised. Discussed the result of the test and was given printed discharge instruction Patient data External records reviewed:: [facility] previous records Clinical information provided by:: patient Social determinants that could affect healthcare access:: none Patient has the following chronic illnesses:: None How is presenting disease/condition affected by chronic disease/condition?: no chronic disease Evaluation data The following diagnostics were reviewed and interpreted by me:: other (specify) Lab and/or radiology exams considered but not ordered:: None Interpretation Summary: None Medications / Prescriptions Medications or Prescriptions considered but not ordered:: Given Medication administrations:: Medication Administration History Hydrocodone Bitart/Acetaminophen (Hydrocodone/Apap 5/325 Tablet) 1 tab PO X1 ONE Stop: 11/05/24 22:38 Discontinued Medications Clindamycin Phosphate (Clindamycin Phos Inj 150 Mg/Ml Vial 6 Ml) 600 mg IM X1 ONE Stop: 11/05/24 22:38 Given Consultations Consultation(s) initiated? (list below): No Diagnosis Skin/Abscess Differential Diagnosis: abscess of skin or subcutaneous tissue, cellulitis and insect bites Most likely diagnosis given after review of the tests above:: Cutaneous abscess Admission Indicated Admission indicated?: not indicated Explain why admission is indicated or not indicated:: Not indicated Admission Request Was there a request for admission?: No Admission Attestation Admission request attestation: Not indicated Disposition Plan Disposition Plan: Discharge Discharge Attestation Discharge Attestation: The patient and all family members were given an opportunity to ask questions and understood the discharge instructions. Discharge instructions specifically effects, indications for sooner follow up or return to the emergency department, and the expected course of current diagnosis. Patient condition: Stable Discharge Plan Plan Patient Disposition: HOME (Self Care) Patient condition on transfer: Stable Prescriptions/Referrals Prescriptions/Med Rec: New clindamycin HCl 300 mg capsule 300 mg PO Q6H 10 Days Qty: 40 0RF hydrocodone-acetaminophen 5-325 mg tablet 1 tab PO Q6H MDD max 4 tabs per day PRN (Reason: pain, severe) Qty: 10 0RF sulfamethoxazole-trimethoprim [Bactrim DS] 800-160 mg tablet 1 tab PO Q12H 10 Days Qty: 20 0RF No Action nifedipine [Procardia XL] 60 mg Tablet Extended Release 24hr PO QDAY ferrous sulfate 325 mg (65 mg iron) tablet 325 mg PO BID Qty: 90 0RF Problem List Clinical Impression: Cutaneous abscess Patient/Caregiver Discharge Instructions Education Materials: ED Abscess Antibiotic ... Additional Instructions: Follow-up with your primary care physician in 2 days for reevaluation return to the emergency room in 2 days for reevaluation of the abscess and possible incision and drainage worsening symptoms or any emergent concern call 911 or go to the nearest emergency room warm compress finish the course of antibiotic keep the area clean and dry Print Language: Iraqi Stand Alone Forms: Liz Award Info., Patient Portal Info Letter PA/EDUCATIONAL TECHNOLOGY SPECIALIST Supervising Physician PA/EDUCATIONAL TECHNOLOGY SPECIALIST Supervising Physician: DR bonilla
[2024-11-05] MEDS: HYDROcodone/APAP 5/325 TABLET 1 TAB PO (23:21)
[2024-11-05] MEDS: CLINDAMYCIN PHOS INJ 150 MG/ML VIAL 6 ML 600 MG IM (23:21)
== END 2024-11-05 23:24 | disposition home or self-care (01) ==
LOC: SERX 23:27
PROVIDERS: Emergency Provider Emergency Medicine; PCP Nurse Practitioner Family
DX: L02.215 Cutaneous abscess of perineum (principal)
CPT/HCPCS: 81025; 96372; 99282; J0736; A9270

== ENCOUNTER 2024-12-22 03:36 | Emergency (ER) | payer SELFPAY ==
[2024-12-22 03:43] VITALS: BP 142/98; PULSE 88; RESP 18; TEMP 36.6; O2SAT 96
[2024-12-22] MEDS: AMOXICILLIN/POT CLAV 875 TABLET 1 TAB PO (04:19)
--- NOTE | 2024-12-22 04:19 | PD.EDEAR ---
ED Ear RME/HPI General Chief complaint: Ear Stated complaint: RIGHT EAR PAIN, RIGHT SIDE HEAD PAIN Time Seen by Provider: 12/22/24 04:12 Arrival date/time: 12/22/24 03:36 24F with no significant PMH presents to ED with several days of R ear/head pain. Patient denies URI symptoms. Limitations: no limitations Related Data Home Medications ?Medication ?Instructions ?Recorded ?Confirmed nifedipine 60 mg tablet,extended mg PO QDAY 05/14/24 release 24 hr (Procardia XL) Previous Rx's ?Medication ?Instructions ?Recorded ferrous sulfate 325 mg (65 mg 325 mg PO BID #90 tabs 05/26/24 iron) tablet hydrocodone 5 mg-acetaminophen 325 1 tab PO Q6H PRN pain, severe #10 11/05/24 mg tablet tabs amoxicillin 875 mg-potassium 1 tab PO BID 10 days #20 tabs 12/22/24 clavulanate 125 mg tablet Allergies Allergy/AdvReac Type Severity Reaction Status Date / Time No Known Allergies Allergy Verified 12/22/24 03:37 Review of Systems Review of Systems Systems Reviewed: All systems reviewed, normal except as documented Constitutional Constitutional: Reports system reviewed and no additional complaints, except as documented, Reports as per HPI, Denies fever(s) and Reports headache(s) ENT Ears, Nose, Mouth, and Throat: Reports as per HPI, Denies disequilibrium, Reports otalgia and Reports headache(s) Cardiovascular Cardiovascular: Reports system reviewed and no additional complaints, except as documented, Denies chest pain and Denies dyspnea Respiratory Respiratory: Reports system reviewed and no additional complaints, except as documented, Denies cough and Denies dyspnea Gastrointestinal Gastrointestinal: Reports system reviewed and no additional complaints, except as documented, Denies abdominal pain, Denies nausea and Denies vomiting Neurologic Neurologic: Reports system reviewed and no additional complaints, except as documented, Denies confusion, Denies disequilibrium and Reports headache(s) Psychiatric Psychiatric: Denies confusion Past Medical History Past Medical History NEUROLOGIC: Negative Neurological Disorders or Seizures CARDIAC: Positive Cardiac Disorders (HTN) and Hypertension; Negative Myocardial Infarction, Cardiac Arrhythmia, Atrial Fibrillation, Angina, Heart Murmur, Coronary Artery Disease, Atherosclerotic Heart Disease, Peripheral Vascular Disease, Hypercholesterolemia, Aneurysm, Congestive Heart Failure, Congenital Heart Disease, Valvular Heart Disease, Rheumatic Fever, Cardiomyopathy, Edema, Pericarditis, Cellulitis, Deep Vein Thrombosis, Hypotension or Varicose Veins RESPIRATORY: Positive Asthma; Negative Chronic Obstructive Pulmonary Disease (COPD), Bronchitis, Emphysema, Pneumonia, Pulmonary Fibrosis, Cystic Fibrosis, Tuberculosis, Pulmonary Embolism, Pulmonary Edema or Sleep Apnea GASTROINTESTINAL: Positive Obesity; Negative Gastrointestinal Disorders, Hepatitis, Cirrhosis, Pancreatitis, Celiac Disease, Gall Bladder Disease, Gastrointestinal Bleed, Esophageal Varices, Sidhu's Esophagus, Colitis, Ulcerative Colitis, Diverticulitis, Diverticulosis, Ulcer, Irritable Bowel, Crohn's Disease, Obstructive Bowel, Hiatal Hernia, Hemorrhoids or Gastroesophageal Reflux Disease GENITOURINARY: Negative Genitourinary Disorders, Renal Disease, Kidney Stones, Polycystic Kidney Disease, Neurogenic Bladder, Inguinal Hernia, Dialysis or Benign Prostatic Hyperplasia REPRODUCTIVE: Negative Endometriosis, Genital Herpes, Gonorrhea, Pelvic Inflammatory Disease, Previous Pregnancies, Syphilis or Uterine Prolapse MUSCULOSKELETAL: Negative Musculoskeletal Disorders ENDOCRINE: Negative Endocrine Disorders, Diabetes Mellitus Type 1, Diabetes Mellitus Type 2, [place]'s Syndrome, [place]'s Disease or Adrenal Disease HEMATOLOGIC: Positive Blood Disorders and Anemia; Negative Leukemia, Hemophilia, Thalassemia, Sickle Cell Disease or Clotting Problems PSYCHO/SOCIAL: Positive Depression and Anxiety; Negative Psychiatric Problems, Schizophrenia, Recreational Drug Use, Bipolar Disorder, Behavior Problems, Self-Mutilation, Attention Deficit Disorder, Attention Deficit Hyperactivity Disorder, Depression, Post Traumatic Stress Disorder or Eating Disorder OTHER HISTORY: Positive Blood Transfusions; Negative Hospitalization, Autoimmune Disease, Down Syndrome, Autism, Developmental Delay, Shingles, Falls, Blood Transfusion Reaction, Anesthesia Reactions, Organ Transplant, Chemotherapy, Radiation Therapy, Hyperbaric Therapy, MRSA, VRSA, Vancomycin-Resistant Enterococci, Human Immunodeficiency Virus (HIV), Chicken Pox, Measles, Mumps, Rubella (I[place]ic Measles), Pertussis, Clostridium Difficile or Cancer Family History FAMILY HISTORY: Negative Family Psychiatric Problems, Family Respiratory Disorders, Family Cardiac Disorders, Family Gastrointestinal Problems, Family Cancer, Family Surgery or Family Anesthesia Reaction Surgical History SURGICAL: Negative Pacemaker or Organ Transplant Social History SMOKING STATUS: Never smoker SECOND HAND EXPOSURE: No ED Exam General Limitations: Present no limitations General appearance: Present alert and in no apparent distress Head Head exam: Present atraumatic ENT ENT exam: Present normal oropharynx and mucous membranes moist Expanded ENT Exam External ear exam: Present external tenderness (R tragal) and periauricular adenopathy (R posterior) TM/Canal exam: Right TM: effusion (mild) Neck Neck exam: Present normal inspection, full ROM and trachea midline Chest Chest inspection: Present normal inspection and symmetric chest wall rise Extremities Exam Extremities exam: Present normal inspection and full ROM Back Exam Back exam: Present normal inspection and full ROM Neurological Exam Neurological exam: Present alert, oriented X3 and CN II-XII intact Psychiatric Psychiatric exam: Present normal affect and normal mood Skin Skin exam: Present warm, dry, intact and normal color Course Quality Measures none Orders Category Date Time Status Amoxicillin/Pot Clav 875 [Augmentin 875] Med 12/22/24 04:13 Discontinued 1 tab PO X1 ONE Vital Signs Vital signs: Vital Signs Temperature 98 F 12/22/24 03:43 Pulse Rate 88 12/22/24 03:43 Respiratory Rate 18 12/22/24 03:43 Blood Pressure 142/98 H 12/22/24 03:43 Pulse Oximetry (%) 96 12/22/24 03:43 Oxygen Delivery Method Room Air 12/22/24 03:43 Ear MDM Narrative MDM Narrative:: 24F with no significant PMH presents to ED with several days of R ear/head pain. Patient denies URI symptoms. Physical exam reveals area of redness and tenderness behind R ear. R tragal tenderness, but no canal discharge or tenderness. R TM mild fluid level. Normal oropharynx. Patient is afebrile, calm, and alert. Likely infected/reactive lymph node. Will cover most common causes such as strep, dental sources and OM. Patient data External records reviewed:: [facility] [place] previous records Clinical information provided by:: patient Social determinants that could affect healthcare access:: none Patient has the following chronic illnesses:: none How is presenting disease/condition affected by chronic disease/condition?: no chronic disease Evaluation data The following diagnostics were reviewed and interpreted by me:: other (specify) (none) Lab and/or radiology exams considered but not ordered:: not ordered Interpretation Summary: n/a Medications / Prescriptions Medications or Prescriptions considered but not ordered:: ordered Medication administrations:: Medication Administration History Discontinued Medications Amoxicillin/Clavulanate Potassium (Amoxicillin/Pot Clav 875 Tablet) 1 tab PO X1 ONE Stop: 12/22/24 04:14 Last Admin: 12/22/24 04:19 Dose: 1 tab Documented By: CVL above Consultations Consultation(s) initiated? (list below): No Diagnosis Ear Differential Diagnosis: otitis externa, otitis media, foreign body in ear, ruptured TM, cerumen impaction and other (lymphadenopathy) Most likely diagnosis given after review of the tests above:: lymphadenopathy Admission Indicated Admission indicated?: not indicated Admission Request Was there a request for admission?: No Disposition Plan Disposition Plan: Discharge Discharge Attestation Discharge Attestation: The patient and all family members were given an opportunity to ask questions and understood the discharge instructions. Discharge instructions specifically effects, indications for sooner follow up or return to the emergency department, and the expected course of current diagnosis. Patient condition: Stable Discharge Plan Plan Patient Disposition: HOME (Self Care) Discharge Disposition comment: Stable Prescriptions/Referrals Prescriptions/Med Rec: New amoxicillin-pot clavulanate 875-125 mg tablet 1 tab PO BID 10 Days Qty: 20 0RF No Action nifedipine [Procardia XL] 60 mg Tablet Extended Release 24hr PO QDAY ferrous sulfate 325 mg (65 mg iron) tablet 325 mg PO BID Qty: 90 0RF hydrocodone-acetaminophen 5-325 mg tablet 1 tab PO Q6H MDD max 4 tabs per day PRN (Reason: pain, severe) Qty: 10 0RF Problem List Clinical Impression: Lymphadenopathy Patient/Caregiver Discharge Instructions Education Materials: Lymphadenopathy Additional Instructions: Please follow-up with PCP within 24-48 hours and return immediately if symptoms worsen. Ibuprofen/Tylenol can be used simultaneously for greater fever/pain control. Print Language: [place] Verde[place] Stand Alone Forms: Patient Portal Info Letter JOHN/ROXANNA Supervising Physician JOHN/ROXANNA Supervising Physician: Dr. Beard
== END 2024-12-22 04:20 | disposition home or self-care (01) ==
LOC: SERX 04:43
PROVIDERS: Emergency Provider Emergency Medicine; PCP Nurse Practitioner Family
DX: R59.0 Localized enlarged lymph nodes (principal); H92.01 Otalgia, right ear
CPT/HCPCS: 99282; A9270

== ENCOUNTER 2025-02-23 22:43 | Emergency (ER) | payer MEDICAID, SELFPAY ==
[2025-02-23 22:47] VITALS: BMI 54.9
[2025-02-23 22:55] VITALS: BP 166/111; BP 170/114; PULSE 93; RESP 20; TEMP 36.8; O2SAT 98
--- NOTE | 2025-02-23 23:00 | XR_ITS ---
Examination: Transvaginal ultrasound of the pelvis, complete Technique: Transvaginal sonographic images pelvis performed using mccollum scale imaging Exam date and time: February 23, 2025, 2311 hours INDICATIONS: Vaginal bleeding and perineal pain beginning 2 weeks ago FINDINGS: Absent uterus Ovaries not visualized IMPRESSION: Absent uterus No pelvic mass No free fluid in the pelvis.
--- NOTE | 2025-02-23 23:01 | PD.EDRME ---
Rapid Medical Screening Exam RME Arrival date/time: 02/23/25 22:43 This is a case of 24-year-old female with history of hysterectomy secondary to complicated section and placental abruption came in in the emergency room due to vaginal bleeding with blood clots associated with pelvic pain due to worsening of the symptoms this patient decided to start consulted in the emergency rroom Chief Complaint: Vaginal Bleeding Time Seen by Provider: 02/23/25 22:51 Vital signs: Vital Signs Temperature 98.2 F 02/23/25 22:55 Pulse Rate 93 02/23/25 22:55 Respiratory Rate 20 02/23/25 22:55 Blood Pressure 166/111 H 02/23/25 22:55 Pulse Oximetry (%) 98 02/23/25 22:55 Oxygen Delivery Method Room Air 02/23/25 22:55 Exam: Patient is obese tenderness on the pelvic area no guarding no rebound no rigidity Clinical Impression: Vaginal bleeding
[2025-02-23 23:30] LABS: Basophils # (Auto) 0.0 Thou/mm3 (0.0-0.2); Basophils % (Auto) 0 % (0-2.5); Eosinophils # (Auto) 0.4 Thou/mm3 (0.0-0.5); Eosinophils % (Auto) 4 % (0-10); Hematocrit 38.5 % (36.0-46.0); Hemoglobin 12.8 g/dL (12.0-16.0); Immature Granulocytes Auto 0.04 Thou/mm3 (0.00-0.00); Lymphocytes # (Auto) 3.8 Thou/mm3 (1.0-4.8); Lymphocytes % (Auto) 37 % (10-50); Mean Corpuscular HGB Conc 33.2 g/dl (31.0-37.0); Mean Corpuscular Hemoglobin 27.1 pg (25.0-35.0); Mean Corpuscular Volume 82 fL (80-100); Monocytes # (Auto) 0.8 Thou/mm3 (0.0-0.8); Monocytes % (Auto) 8 % (0-12); Neutrophils # (Auto) 5.2 Thou/mm3 (1.8-7.7); Neutrophils % (Auto) 51 % (37-80); Nucleated Red Blood Cell # 0.00 Thou/mm3 (0.00-0.00); Nucleated Red Blood Cell % 0 /100 WBC (0); Platelet Count 282 Thou/mm3 (140-440); RDW Standard Deviation 41.9 fL (36.4-46.3); Red Blood Count 4.72 Miln/mm3 (4.00-5.20); White Blood Count 10.3 Thou/mm3 (3.6-11.0)
[2025-02-23 23:40] LABS: Collection Type, Urine Voided
[2025-02-23 23:44] LABS: Bilirubin,Urine Negative (Negative); Blood,Urine Negative (Negative); Clarity,Urine Clear (Clear/Hazy); Color,Urine Lt-Yellow (Lt Yel-Yel); Glucose, Urine Negative (Negative); Ketones,Urine Negative (Negative); Leukocyte Esterase,Urine Negative (Negative); Nitrite,Urine Negative (Negative); PH,Urine 6.0 (5.0-7.0); Protein,Urine Negative (Neg - Trace); RBC,Urine 1 /hpf (0-3); Specific Gravity,Urine 1.021 (1.001-1.035); Squamous Epithelial Cell,Urine 5 /hpf (0-5); Urobilinogen,Urine Negative mg/dL (0.0-1.0); WBC,Urine 1 /hpf (0-5)
[2025-02-23 23:45] VITALS: BP 131/102; PULSE 93; RESP 17; TEMP 36.8; O2SAT 98
[2025-02-23 23:45] LABS: Alanine Aminotransferase 71 U/L (10-49); Albumin, Serum 4.6 gm/dL (3.5-5.0); Albumin/Globulin Ratio 1.6 (1.2-2.2); Alkaline Phosphatase 74 U/L (46-116); Anion Gap 8 (7-16); Aspartate Amino Transferase 63 U/L (0-34); BUN/Creatinine Ratio 7 Ratio (12-20); Beta HCG,Quantitative 1 mIU/mL (<5.0); Bilirubin,Total 0.3 mg/dL (0.3-1.2); Blood Urea Nitrogen 8 mg/dL (9-23); Calcium 9.3 mg/dL (8.3-10.6); Calcium (Corrected) 9.3 mg/dL (8.5-10.1); Carbon Dioxide 27.5 mMol/L (20.0-31.0); Chloride 106 mMol/L (98-107); Creatinine (Component) 1.1 mg/dL (0.6-1.3); Estimated Creatinine Clearance 115.1 mL/min (>60); Globulin 2.8 gm/dL (2.3-3.5); Glucose 94 mg/dL (74-106); Osmolality,Calculated 279 (275-295); Potassium 3.9 mMol/L (3.4-5.1); Sodium 141 mMol/L (136-145); Total Protein 7.4 gm/dL (5.7-8.2); eGFR > 60 See Note
--- NOTE | 2025-02-24 00:40 | PRELIM_ITS ---
Pelvic ultrasound (transvaginal) with Doppler. February 23, 2025 2319 hours Clinical history: Vaginal bleeding. Technique: Real-time, grayscale, transvaginal pelvic ultrasound was performed using Duplex scanning including arterial inflow, venous outflow, color and spectral Doppler. Comparison: None available at the time of this report. Findings: Status post hysterectomy. The ovaries are not visualized. No masses. There is no free fluid on the submitted images. No abnormalities by Doppler. Impression: Unremarkable pelvic sonogram. Report Electronically Signed By: Matty Castro 02/24/2025 12:38:50 AM [EST]
--- NOTE | 2025-02-24 01:04 | EDNOTE_ITS ---
ED OB Contraction Preg RMI/HPI General Chief complaint: Vaginal Bleeding Stated complaint: LOW ABD PAIN VAG BLEEDING (HAS HAD HYSTERECTOMY) Time Seen by Provider: 02/23/25 22:51 Arrival date/time: 02/23/25 22:43 RME / HPI RME / HPI Narrative: 02/23/25 22:43 This is a case of 24-year-old female with history of hysterectomy secondary to complicated section and placental abruption came in in the emergency room due to vaginal bleeding with blood clots associated with pelvic pain due to worsening of the symptoms this patient decided to start consulted in the emergency room DR. PICHARDO MAIN ED EVALUATION: Patient presents with noted spotting post-hysterectomy in 05/2024, reports mild lumbar pain and mild dysuria. No urinary urgency or frequency. PMH: Asthma, Anemia, Depression, Gestational HTN, and Anxiety PSH: Hysterectomy Allergies: NKDA Social: Negative for Alcohol and Tobacco consumption Exam: Patient is obese tenderness on the pelvic area no guarding no rebound no rigidity Impression: Vaginal bleeding Related Data Home Medications ?Medication ?Instructions ?Recorded ?Confirmed nifedipine 60 mg tablet,extended mg PO QDAY 05/14/24 release 24 hr (Procardia XL) Previous Rx's ?Medication ?Instructions ?Recorded ferrous sulfate 325 mg (65 mg 325 mg PO BID #90 tabs 0 05/26/24 iron) tablet hydrocodone 5 mg-acetaminophen 325 1 tab PO Q6H PRN pa in, severe #10 11/05/24 mg tablet tabs Allergies Allergy/AdvReac Type Severity Reaction Status Date / Time No Known Allergies Allergy Verified 02/23/25 22:52 Review of Systems Review of Systems Systems Reviewed: All systems reviewed, normal except as documented Past Medical History Past Medical History RESPIRATORY: Positive Asthma HEMATOLOGIC: Positive Anemia PSYCHO/SOCIAL: Positive Depression and Anxiety OTHER HISTORY: Positive Blood Transfusions Surgical History SURGICAL: Positive Hysterectomy ED Exam Narrative Physical exam: GEN. APPEARANCE: The patient is alert awake oriented X-3 under no distress, lying down comfortably, does not look ill/toxic. Patient has good eye contact. Patient is cooperative. VITALS: All vitals were reviewed and the pulse ox is 98%, which is normal according to my interpretation HEENT: Normocephalic, atraumatic and nontender. Pupils are equal and reactive. Oral mucosa is moist. NECK: Supple, nontender, no meningismus, no JVD. There is no thyromegaly and no lymphadenopathy. CHEST: Nontender on palpation no deformity and no crepitus. CARDIOVASCULAR: Heart regular rhythm, no murmur or gallop rub or extra beats. LUNGS: Clear to auscultation bilaterally with symmetrical chest rise. No laboring tachypnea or wheezing. No intercostal subcostal retraction. No rales and no rhonchi. ABDOMEN: Soft, flat, mild suprapubic abdominal tenderness, no guarding or rebound tenderness. There are no abnormal masses palpated. No pulsatile masses or bruits. Active and normal bowel sounds. PELVIC: Brief pelvic exam was performed via speculum, demonstrates slightly mucoid discharge white in appearance, no obious hemorrhage, polyps, or lesions noted. RECTAL: Hemoccult negative. EXTREMITIES: Normal inspection and palpation. No edema. No cyanosis. Patient is able to move all 4 extremities well SKIN: Warm and dry, no rashes noted. MUSCULOSKELETAL: No lumbar or midline bony tenderness. There is no CVA tenderness. No paraspinal muscle spasm or tenderness. NEURO: Cranial nerves II through XII grossly intact. There are no focal neurologic deficits noted. GCS is 15 PSYCHIATRIC: Patient is in normal mood and affect, cooperative. LYMPHATICS: No major lymphadenopathy noted. Course Quality Measures none Orders Category Date Time Status US transvaginal Stat Exams 02/23/25 23:00 Taken ABO/RH Type Stat Lab 02/23/25 23:14 Completed Beta HCG,Quantitative Stat Lab 02/23/25 23:14 Completed CBC Stat Lab 02/23/25 23:14 Completed CMP [Comprehensive Metabolic Panel] Stat Lab 02/23/25 23:14 Completed Urinalysis Stat Lab 02/23/25 22:36 Completed HYDROcodone*/APAP 5/325 [Wed[place] 5/325] Med 02/24/25 02:06 Discontinued 1 tab PO X1 ONE Vital Signs Vital signs: Vital Signs Temperature 98.2 F 02/23/25 22:55 Pulse Rate 93 02/23/25 22:55 Respiratory Rate 20 02/23/25 22:55 Blood Pressure 166/111 H 02/23/25 22:55 Pulse Oximetry (%) 98 02/23/25 22:55 Oxygen Delivery Method Room Air 02/23/25 22:55 PROCEDURES: Stool Hemoccult Procedural Steps Taken: stool placed in appropriate test area, developer placed on stool and control areas and controls appropriately positive and negative Hemoccult result: negative Vaginal Bleeding MDM Narrative MDM Narrative: Scribe Attestation: I, Haileedeepthi Bentley, am scribing for and in the presence of Dr. Alfaro. Provider Notation: Although this document has been carefully reviewed, there may still be some phonetic and other typographical errors. These errors are purely grammatical due to imperfections in the software program and should not be construed in any way to compromise the substance of the patient's medical care during this visit. Patient presents with noted spotting post-hysterectomy in 05/2024, reports mild lumbar pain and mild dysuria. No urinary urgency or frequency. Please see PE findings. Laboratory markers, including CBC, demonstrated WBC of 10.3, normal hemoglobin of 12.8, and platelet count of 282. Serum chemistries are essentially unremarkable. UA without evidence of hematuria. Will conduct brief pelvic and rectal exams to R/O GI source. Will discharge to home if exams are negative, recommend F/U with PMD. Precautionary instructions issued. Will add ABX for non- specific vaginitis. Final diagnosis is NSV. Patient data External records reviewed:: [facility] previous records (Reviewed prior ED records from 12/22/24. Patient was seen for Lymphadenopathy.) Clinical information provided by:: patient Social determinants that could affect healthcare access:: none Patient has the following chronic illnesses:: Asthma, Anemia, Depression, Gestational HTN, and Anxiety How is presenting disease/condition affected by chronic disease/condition?: uneffected by Evaluation data The following diagnostics were reviewed and interpreted by me:: lab results and radiology exam(s) Lab and/or radiology exams considered but not ordered:: None Interpretation Summary: RADIOLOGY Transvaginal US: Findings: Status post hysterectomy. The ovaries are not visualized. No masses. There is no free fluid on the submitted images. No abnormalities by Doppler. Impression: Unremarkable pelvic sonogram Medications / Prescriptions Medications or Prescriptions considered but not ordered:: None Medication administrations:: Medication Administration History Discontinued Medications Hydrocodone Bitart/Acetaminophen (Hydrocodone/Apap 5/325 Tablet) 1 tab PO X1 ONE Stop: 02/24/25 02:07 See above if any Consultations Consultation(s) initiated? (list below): No Diagnosis Vaginal Bleeding Differential Diagnosis: dysfunctional uterine bleeding, menometrorrhagia, ectopic without intrauterine and vaginal bleeding Most likely diagnosis given after review of the tests above:: NSV Admission Indicated Admission indicated?: not indicated Explain why admission is indicated or not indicated:: Patient does not meet admission criteria Admission Request Was there a request for admission?: No Disposition Plan Disposition Plan: Discharge Discharge Attestation Discharge Attestation: The patient and all family members were given an opportunity to ask questions and understood the discharge instructions. Discharge instructions specifically effects, indications for sooner follow up or return to the emergency department, and the expected course of current diagnosis. Patient condition: Stable Discharge Plan Plan Patient Disposition: HOME (Self Care) Prescriptions/Referrals Prescriptions/Med Rec: No Action nifedipine [Procardia XL] 60 mg Tablet Extended Release 24hr PO QDAY ferrous sulfate 325 mg (65 mg iron) tablet 325 mg PO BID Qty: 90 0RF hydrocodone-acetaminophen 5-325 mg tablet 1 tab PO Q6H MDD max 4 tabs per day PRN (Reason: pain, severe) Qty: 10 0RF Referrals: Kev Piper MD [Primary Care Provider, Family Practice] - In 1 week Problem List Clinical Impression: Nonspecific vaginitis Patient/Caregiver Discharge Instructions Print Language: [place]ic Stand Alone Forms: Liz Award Info., Patient Portal Info Letter
[2025-02-24 02:48] VITALS: BP 159/85; PULSE 85; RESP 14; TEMP 37; O2SAT 99
== END 2025-02-24 02:49 | disposition home or self-care (01) ==
PROVIDERS: Nurse Practitioner Family; Emergency Provider Emergency Medicine; PCP Family Medicine
DX: N76.0 Acute vaginitis (principal); J45.909 Unspecified asthma, uncomplicated
CPT/HCPCS: 36415; 76830; 80053; 81001; 84702; 85025; 86900; 86901; 87210; 99283